=== PATIENT | male | born 1985 | race Caucasian/White ===

== ENCOUNTER 2020-04-24 07:55 | Outpatient (CLI) | payer BC, SELFPAY ==
[2020-04-24 08:32] LABS: Anion Gap 8 mmol/L (8-16); Blood Urea Nitrogen 14 mg/dL (9-20); Calcium 9.2 mg/dL (8.4-10.2); Carbon Dioxide 26 mmol/L (22-30); Chloride 101 mmol/L (98-107); Estimated Glomerular Filt Rate > 60; Glucose 119 mg/dL (75-110); Potassium 4.2 mmol/L (3.4-5.0); Sodium 135 mmol/L (137-145)
[2020-04-24 08:37] LABS: Hemoglobin A1C 6.8 % (<5.7)
[2020-04-24 08:57] LABS: Creatinine Urine 121.3 mg/dL
[2020-04-24 09:20] LABS: Microalbumin Urine Random < 6.0 mg/L (0-16.7)
[2020-04-24 09:21] LABS: MALB Creatinine Ratio < 4.9 mg/g (0-30)
== END 2020-04-24 07:56 | disposition home or self-care (01) ==
PROVIDERS: PCP Internal Medicine; Visit Provider Nurse Practitioner
DX: E11.9 Type 2 diabetes mellitus without complications (principal)
CPT/HCPCS: 36415; 80048; 82043; 83036

== ENCOUNTER → 2021-10-12 08:21 | Outpatient (CLI) | payer BC, SELFPAY ==
--- NOTE | ~2021-10-12 | MR_ITS ---
EXAMINATION: MR lumbar spine wo con EXAM DATE: 10/12/2021 09:13 INDICATION: Lumbar radiculopathy, lbp right sided sciatica x10yrs. TECHNIQUE: Multi-sequential, multiplanar MR images of the lumbar spine were obtained without contrast . Sagittal T1, T2, T2 fat saturation images. Axial T2 weighted images. Comparison is made to prior examination from 02/05/2019. FINDINGS: Level by level evaluation: T12-L1: Disc does not extend beyond the endplate margin. Facet arthropathy: Mild. Neural foraminal stenosis: No stenosis. Central canal stenosis: No stenosis. L1-L2: Disc does not extend beyond the endplate margin. Facet arthropathy: Mild. Neural foraminal stenosis: No stenosis. Central canal stenosis: No stenosis. L2-L3: Disc does not extend beyond the endplate margin. Facet arthropathy: Mild to moderate. Neural foraminal stenosis: No stenosis. Central canal stenosis: No stenosis. L3-L4: There is a moderate diffuse disc bulge asymmetric to the right Facet arthropathy: Moderate. Neural foraminal stenosis: Mild to moderate right, mild left. Central canal stenosis: Mild to moderate. L4-L5: There is a mild diffuse disc bulge. Facet arthropathy: Mild to moderate. Neural foraminal stenosis: No stenosis. Central canal stenosis: Mild. L5-S1: There is a minimal diffuse disc bulge. Facet arthropathy: Mild. Neural foraminal stenosis: No stenosis. Central canal stenosis: No stenosis. IMPRESSION: 1. L3-4 moderate disc bulge and mild to moderate right neural foraminal stenosis and causing some di splacement of the exiting right L3 nerve root. 2. No spondylosis other levels. Reviewed, dictated and finalized at location G. [employer] MECH[employer]IC IMPRESSION: 1. L3-4 moderate disc bulge and mild to moderate right neural foraminal stenos is and causing some displacement of the exiting right L3 nerve root. 2. No spondylosis other levels.
== END ==
PROVIDERS: PCP Internal Medicine; Visit Provider Nurse Practitioner Adult Health
DX: M54.16 Radiculopathy, lumbar region (principal); M48.061 Spinal stenosis, lumbar region without neurogenic claudication
CPT/HCPCS: 72148

== ENCOUNTER 2022-12-06 10:22 | Observation (INO) | payer BC, SELFPAY ==
[2022-12-06] VITALS (15 sets, daily range): BP systolic 115–137; BP diastolic 80–96; PULSE 73–95; RESP 16–18; TEMP 36.9–37.1; O2SAT 98–100
--- NOTE | ~2022-12-06 | CT_ITS ---
EXAMINATION: CTA chest PE abdomen pel DATE: 12/06/2022 12:24 INDICATION: Dyspnea. Nausea, vomiting, and diarrhea. Epigastric abdominal pain. TECHNIQUE: Computed tomography angiography (CTA) of the chest was performed with 100 mL Omnipaque-350 intravenous contrast timed to evaluate the pulmonary arteries. Coronal maximum intensity projection 3D-reconstructions were created by the technologist. Computed tomography (CT) of the abdomen and pelv is was performed with intravenous contrast. Automated exposure control and iterative reconstruction t echnique were employed. The dose-length product was 956.73 mGy-cm. COMPARISON: None. FINDINGS: CTA chest: There is no pneumonia, pleural effusion, or pneumothorax. Pneumomediastinum is noted. Ther e is no pulmonary embolus. The heart size is normal. No pericardial effusion. There is no pulmonary e mbolus. CT abdomen and pelvis: The liver, gallbladder, pancreas, adrenal glands, and kidneys are normal. Ther e are no dilated loops of bowel. The appendix is normal. There are no pathologically enlarged lymph n odes. There is no free intraperitoneal fluid. There are chronic bilateral L3 pars defects. There is m oderate lumbar spondylosis. IMPRESSION: 1. Pneumomediastinum. 2. No pulmonary embolus. Reviewed, dictated and finalized at location A.
--- NOTE | ~2022-12-06 | XR_ITS ---
EXAMINATION: XR chest 1V portable DATE: 12/06/2022 12:01 INDICATION: Cough. Chest pain. TECHNIQUE: A single frontal view of the chest was obtained on 2 radiographs. COMPARISON: None. FINDINGS: The chest demonstrates clear lungs without pneumonia, pleural effusion, or pneumothorax. Th e heart size is normal. IMPRESSION: 1. No acute cardiopulmonary disease. Reviewed, dictated and finalized at location A.
[2022-12-06 11:48] LABS: Basophils Percent Auto 0.8 % (0.2-1.2); Eosinophils Percent Auto 0.6 % (0-4.4); Hematocrit 48.8 % (42.0-52.0); Immature Granulocyte Absolute 0.08 K/mm3 (0.00-0.031); Immature Granulocyte Percent A 1.5 % (0-0.5); Lymphocytes Absolute Auto 0.93 K/mm3 (0.9-3.2); Lymphocytes Percent Auto 17.6 % (18.3-44.2); Mean Corpuscular HGB Conc 34.8 g/dl (32-36); Mean Corpuscular Hemoglobin 30.4 pg (26-34); Mean Corpuscular Volume 87.3 fl (80-100); Mean Platelet Volume 9.5 fl (7.4-10.4); Monocytes Percent Auto 19.1 % (2.6-8.5); Neutrophils Absolute Auto 3.2 K/mm3 (1.3-6.7); Neutrophils Percent Auto 60.4 % (45.5-73.1); Platelet Count Result 322 k/mm3 (150-375); Red Blood Count 5.59 M/mm3 (4.6-6.20); White Blood Count 5.3 K/mm3 (4.5-10.0)
[2022-12-06 11:52] LABS: Appearance Urine Clear (Clear); Bacteria Urine None Seen /hpf; Bilirubin Urine Negative (Negative); Blood Urine Negative (Negative); Color Urine Yellow (Yellow); Glucose Urine UA 3+ mg/dL (Negative); Ketones Urine 4+ mg/dL (Negative); Leukocyte Esterase Ur Negative LEU/UL (Negative); Nitrate Urine Negative (Negative); Protein Urine 2+ mg/dL (Negative); RBC Urine 0-2 /hpf (0-2); Specific Grav Ur 1.038 (1.001-1.035); Squamous Epithelial Cell Urine None seen /hpf (Few); Urobilinogen Urine 0.2 mg/dL (<2.0); WBC Urine 0-5 /hpf
[2022-12-06 11:53] LABS: Add Urine Microscopic? YES
[2022-12-06 12:00] LABS: Alanine Aminotransferase 21 U/L (6-50); Albumin Level 5.1 g/dL (3.5-5.1); Alkaline Phosphatase 77 U/L (38-126); Anion Gap 21 mmol/L (8-16); Aspartate Amino Transferase 28 U/L (17-59); Bilirubin,Total 0.7 mg/dL (0.2-1.3); Blood Urea Nitrogen 19 mg/dL (9-20); Calcium 8.7 mg/dL (8.4-10.2); Carbon Dioxide 18 mmol/L (22-30); Chloride 89 mmol/L (98-107); Estimated CRCL calculation 134 ml/min; Estimated Glomerular Filt Rate > 60; Glucose 335 mg/dL (65-110); Lipase 171 U/L (23-300); Sodium 128 mmol/L (137-145)
[2022-12-06 12:22] LABS: Influenza A QL RT-PCR Negative (Negative); Influenza B QL RT-PCR Negative (Negative); SARS-CoV-2 RNA PCR Positive
[2022-12-06 12:28] LABS: Magnesium 2.2 mg/dL (1.6-2.3)
[2022-12-06 12:29] LABS: Atypical Lymphocytes Present; Platelet Estimate Adequate (Adequate); Schistocytes None Seen (NORMAL)
[2022-12-06 12:31] LABS: Troponin I < 0.012 ng/mL (0.000-0.034)
[2022-12-06] MEDS: SODIUM CHLORIDE 0.9% IV 1,000 ML 999 ML IV CONT ×3 (12:32→14:41)
[2022-12-06] MEDS: FAMOTIDINE 20 MG/2 ML VIAL IV PUSH ×2 (12:32→21:04)
--- NOTE | 2022-12-06 12:43 | ED.ABDPAIN ---
HPI - Abdominal Pain General Chief Complaint: Abdominal Pain Stated Complaint: covid positive, V/D, epigatric pain Time Seen by Provider: 12/06/22 10:47 Source: RN notes reviewed History of Present Illness HPI narrative: Patient presents emergency department from home for nausea vomiting diarrhea. Patient states symptoms began initially 1 week ago with nausea and vomiting. He states he had numerous episodes of nausea and vomiting up through but has had no emesis since . He states that starting began to have diarrhea and has had numerous episodes of diarrhea since that time. States has been associated with abdominal pain that is diffuse and described as crampy in nature he also notes some chest pain and states that he has pain with swallowing. He states that he has had no fevers or chills states he has had a cough this been nonproductive states he took a COVID test at home this morning it was positive and came to the emergency department for further evaluation as he felt that he was dehydrated. States he is not taking Tylenol or ibuprofen Related Data Home Medications Medication Instructions Recorded Confirmed albuterol sulfate 90 mcg/actuation 2 puff inhalation Q4-6H PRN 09/15/19 12/06/22 aerosol inhaler (ProAir HFA) Shortness Of Breath Or Wheezing cholecalciferol (vitamin D3) 1,250 1,250 mcg PO WEEKLY 08/27/22 12/06/22 mcg (50,000 unit) capsule pioglitazone 30 mg tablet 30 mg PO HS 08/27/22 12/06/22 empagliflozin 25 mg tablet 25 mg PO DAILY 12/06/22 12/06/22 (Jardiance) ergocalciferol (vitamin D2) 1,000 1,000 unit PO DAILY 12/06/22 12/06/22 unit capsule loratadine 10 mg tablet (Claritin) 10 mg PO DAILY 12/06/22 12/06/22 metformin 1,000 mg tablet 1,000 mg PO BID 12/06/22 12/06/22 sertraline 50 mg tablet 50 mg PO HS 12/06/22 12/06/22 valacyclovir 1 gram tablet 2,000 mg PO Q12H PRN Cold Sores 12/06/22 12/06/22 Allergies Allergy/AdvReac Type Severity Reaction Status Date / Time aloe Allergy Mild Rash Verified 12/06/22 11:26 Review of Systems Review of Systems: Gen.: Denies fevers or chills ENT: Denies congestion Respiratory: Denies shortness of breath or cough CV: Reports chest pain GI: See HPI denies burning, urgency, frequency or hematuria Musculoskeletal: Denies back pain or muscle pain Neuro: Denies numbness, tingling, weakness or focal weakness Skin: Denies rash Except as documented, all other systems reviewed and negative FORMERLY [facility] Past Medical History Medical History (Updated 12/06/22 @ 15:57 by Adriana Perez PA-C) Allergies Asthma Chronic pain Elevated liver enzymes Gynecomastia Hyperkalemia Injection (erythema) Steroid injection 03/2019 Left radial fracture Transaminitis Type 2 diabetes mellitus Vitamin D deficiency Family History Family History (Updated 12/06/22 @ 15:35 by Adriana Perez PA-C) Sibling Family history of blood dyscrasia Mother Patient's mother is in good health Father Patient's father is in good health Hypertension Other Lupus Grandparent Heart disease Diabetes mellitus Social History Social History (Updated 12/06/22 @ 15:36 by Adriana Perez PA-C) Social History: Live house with 2 children and 1 dog. No smoking, drinking or drug use. Smoking status: Never smoker Second hand tobacco smoke exposure: No Alcohol intake: never Alcohol use details: Pt drinks rarely. Substance use: never Lack of Transportation: No Lack of Food: Never True Current Housing: I Have Housing Concerned About Future Housing: No Difficulty Paying Gas/Electric Bills: No Difficulty Paying for Meds: No Currently Unemployed: No Education: Bachelor's Degree Difficulty w/ Childcare or Family Care: No Spiritual care concerns: No Exam Narrative: APPEARANCE: No acute distress, nontoxic, resting in bed HEENT: Normocephalic, atraumatic, oral mucosa dry RESPIRATORY: No respiratory distress, clear to auscultation
--- NOTE | 2022-12-06 12:44 | ECG_ITS ---
Measurements Intervals [place] Rate: 80 P: 66 [place]: 138 QRS: 75 QRSD: 89 T: 45 QT: 359 QTc: 415 Interpretive Statements SINUS RHYTHM NO PREVIOUS ECG AVAILABLE FOR COMPARISON Electronically Signed On 12-06-2022 15:50:45 CDT by Elliot Adams M.D.
[2022-12-06 12:45] LABS: Alveolar/Arterial O2 Gradient 18.2 mmHg; Base Excess ABG -6.3 mEq/l (+/-2.0); Carboxyhemoglobin 0.4 % THb (0-2.0); Device ROOM AIR; Fractional Inspired Oxygen 21 %; HCO3 ABG 16.6 mEq/l (22.0-26.0); Methemoglobin ABG 0.4 %THb (0-1.5); Modified Allen's Test Pass; Oxygen Content ABG 20.6 %vol (16.0-22.0); Oxygen Saturation ABG 97.7 % (95.0-100.0); Oxyhemoglobin 96.7 % THb (90.0-100.0); PO2 ABG 99.2 mmHg (80.0-100.0); PO2 FiO2 Ratio Arterial Blood 4.72 %; Reduced Hemoglobin 2.5 %THb (0-5.0); Site Drawn RIGHT RADIAL; Total Hemoglobin 15.1 g/dL (12.0-18.0); pH ABG 7.406 (7.350-7.450)
[2022-12-06 13:16] LABS: Beta-Hydroxybutyrate/Acetoacetate 4.91 mmol/L (0.02-0.27)
[2022-12-06 13:58] LABS: Glucose Point of Care 270 mg/dl (65-105)
[2022-12-06 14:31] LABS: Anion Gap 13 mmol/L (8-16); Blood Urea Nitrogen 16 mg/dL (9-20); Calcium 7.6 mg/dL (8.4-10.2); Carbon Dioxide 19 mmol/L (22-30); Chloride 96 mmol/L (98-107); Estimated CRCL calculation 152 ml/min; Estimated Glomerular Filt Rate > 60; Glucose 251 mg/dL (65-110); Potassium 4.1 mmol/L (3.4-5.0); Sodium 128 mmol/L (137-145)
--- NOTE | 2022-12-06 15:20 | PM.IMHP ---
H&P: HPI History of Present Illness Date/Time: 12/06/22 15:20 Chief Complaint: COVID-19, dehydration Narrative: This is a 37-year-old male with a past medical history type 2 diabetes and asthma that presented to the ED on 12/06/2022 with chief complaint nausea, vomiting and diarrhea. Patient stated 1 week ago he began having nausea and vomiting. His and daughter both had the symptoms prior to him and they believe that they just have a stomach bug. Patient stated that he began to feel little bit better the next day but 2 days after he began having increased symptoms of nausea vomiting that resulted in him having the hiccups that lasted over 24 hours. Having hiccups cause him to have increased nausea vomiting and sternal chest pain. He developed diarrhea 2 days ago and with this he is having frequency and urgency. Diarrhea happens every 15 minutes to 1 hour and is large in volume. He has also had body aches and muscle weakness but he attributes this to being dehydrated. Patient had taken a COVID test at home where he found out he was positive for COVID and this is when he decided to come into the ER. ER labs revealed sodium of 128, an anion gap gap of 21, glucose of 335, Beta-Hydroxybutyrate/Acetoacetate 4.91, patient did have 4+ ketones in the urine. There was concern for diabetic ketoacidosis. Patient was given 1 L of fluids upon arrival to the ER. ER had discussion with ICU physician and he recommended that the patient receive additional 2 L of IV fluids and repeat BMP. Repeat BMP showed improvement of patient's labs with a normal anion gap and lower glucose level. Patient is likely experiencing dehydration rather than DKA. Since patient had chest pain troponin were ran that were negative and he also had a CT chest which showed a small pneumomediastinum which is likely secondary to profuse vomiting and hiccups. patient received a GI cocktail which improved his symptoms tremendously. Patient receiving IV hydration, Pepcid and p.r.n. Zofran. Patient being admitted observation with diagnosis of dehydration. Review of Systems Review of Systems: All systems reviewed & are unremarkable except as noted in HPI and below PMFSH Past Medical History Medical History (Updated 12/06/22 @ 15:57 by Adriana Perez PA-C) Allergies Asthma Chronic pain Elevated liver enzymes Gynecomastia Hyperkalemia Injection (erythema) Steroid injection 03/2019 Left radial fracture Transaminitis Type 2 diabetes mellitus Vitamin D deficiency Family History Family History (Updated 12/06/22 @ 15:35 by Adriana Perez PA-C) Sibling Family history of blood dyscrasia Mother Patient's mother is in good health Father Patient's father is in good health Hypertension Other Lupus Grandparent Heart disease Diabetes mellitus Social History Social History (Updated 12/06/22 @ 15:36 by Adriana Perez PA-C) Social History: Live house with 2 children and 1 dog. No smoking, drinking or drug use. Smoking status: Never smoker Alcohol intake: never Alcohol use details: Pt drinks rarely. Meds Home Medications and Allergies Home Medications Medication Instructions Recorded Confirmed Type albuterol sulfate 90 mcg/actuation 2 puff inhalation Q4-6H PRN 09/15/19 08/27/22 History aerosol inhaler (ProAir HFA) Shortness Of Breath Or Wheezing blood sugar diagnostic (Blood #50 ea 01/29/22 08/27/22 Rx Glucose Test strips) blood-glucose meter (Blood Glucose #1 ea 01/29/22 08/27/22 Rx Monitoring kit) dulaglutide 3 mg/0.5 mL 3 mg (0.5 mL) subcut WEEKLY #2 mL 01/29/22 08/27/22 Rx subcutaneous pen injector (Trulicity) lancets 32 gauge #100 ea 01/29/22 08/27/22 Rx sumatriptan succinate 50 mg tablet See Rx Instructions PO .COMPLEX #9 05/01/22 08/27/22 Rx (Imitrex) tabs cholecalciferol (vitamin D3) 1,250 1,250 mcg PO WEEKLY 08/27/22 08/27/22 History mcg (50,000 unit) capsule pioglitazone 30 mg tablet 30 mg
[2022-12-06 16:42] LABS: Anion Gap 13 mmol/L (8-16); Blood Urea Nitrogen 14 mg/dL (9-20); Calcium 8.2 mg/dL (8.4-10.2); Carbon Dioxide 19 mmol/L (22-30); Chloride 100 mmol/L (98-107); Estimated CRCL calculation 175 ml/min; Estimated Glomerular Filt Rate > 60; Glucose 209 mg/dL (65-110); Sodium 132 mmol/L (137-145)
[2022-12-06 16:46] LABS: Hemoglobin A1C 9.3 % (<5.7)
[2022-12-06] MEDS: SODIUM CHLORIDE 0.9% IV 1,000 ML 125 ML IV CONT ×2 (17:06→21:05)
[2022-12-06] MEDS: INSULIN ASPART (*BKC) 100 UNITS/ML SUB-Q (17:06)
[2022-12-06 18:22] LABS: Glucose Point of Care 209 mg/dl (65-105)
[2022-12-06] MEDS: INSULIN GLARGINE (*BKC) 100 UNITS/ML 9 UNITS SUB-Q (21:04)
[2022-12-06 21:24] LABS: Glucose Point of Care 183 mg/dl (65-105)
[2022-12-07 05:22] VITALS: BP 114/72; PULSE 70; RESP 14; TEMP 36.2; O2SAT 98
[2022-12-07 06:24] LABS: Basophils Percent Auto 0.9 % (0.2-1.2); Eosinophils Absolute Auto 0.1 K/mm3 (0-0.3); Eosinophils Percent Auto 1.8 % (0-4.4); Hematocrit 38.4 % (42.0-52.0); Hemoglobin 12.9 g/dL (14.0-18.0); Immature Granulocyte Absolute 0.06 K/mm3 (0.00-0.031); Immature Granulocyte Percent A 1.4 % (0-0.5); Lymphocytes Percent Auto 29.3 % (18.3-44.2); Mean Corpuscular HGB Conc 33.6 g/dl (32-36); Mean Corpuscular Hemoglobin 29.6 pg (26-34); Mean Corpuscular Volume 88.1 fl (80-100); Mean Platelet Volume 9.1 fl (7.4-10.4); Monocytes Absolute Auto 0.7 K/mm3 (0.1-0.6); Monocytes Percent Auto 16.5 % (2.6-8.5); Neutrophils Absolute Auto 2.2 K/mm3 (1.3-6.7); Neutrophils Percent Auto 50.1 % (45.5-73.1); Platelet Count Result 226 k/mm3 (150-375); Red Blood Count 4.36 M/mm3 (4.6-6.20); White Blood Count 4.4 K/mm3 (4.5-10.0)
[2022-12-07 06:39] LABS: Alanine Aminotransferase 16 U/L (6-50); Albumin Level 3.5 g/dL (3.5-5.1); Alkaline Phosphatase 45 U/L (38-126); Anion Gap 8 mmol/L (8-16); Aspartate Amino Transferase 24 U/L (17-59); Bilirubin,Total 0.5 mg/dL (0.2-1.3); Blood Urea Nitrogen 9 mg/dL (9-20); Calcium 8.2 mg/dL (8.4-10.2); Carbon Dioxide 26 mmol/L (22-30); Chloride 101 mmol/L (98-107); Estimated CRCL calculation 175 ml/min; Estimated Glomerular Filt Rate > 60; Glucose 143 mg/dL (65-110); Potassium 3.6 mmol/L (3.4-5.0); Sodium 135 mmol/L (137-145)
[2022-12-07 06:59] LABS: Atypical Lymphocytes Present; Platelet Estimate Adequate (Adequate); Schistocytes None Seen (NORMAL)
[2022-12-07 07:56] LABS: Glucose Point of Care 123 mg/dl (65-105)
[2022-12-07] MEDS: guaiFENesin 12 HR 600 MG TABCR PO (09:58)
[2022-12-07] MEDS: FAMOTIDINE 20 MG/2 ML VIAL IV PUSH ×2 (09:58→21:52)
[2022-12-07] MEDS: SODIUM CHLORIDE 0.9% IV 1,000 ML 125 ML IV CONT (09:58)
[2022-12-07] MEDS: metFORMIN HCL 500 MG TABLET 1000 MG PO (10:30)
[2022-12-07] MEDS: LORATADINE 10 MG TABLET PO (10:31)
[2022-12-07] MEDS: ACETAMINOPHEN 325 MG TABLET 650 MG PO (11:25)
[2022-12-07 11:35] LABS: Glucose Point of Care 163 mg/dl (65-105)
[2022-12-07 14:00] VITALS: BP 107/75; PULSE 88; RESP 18; TEMP 37.4; O2SAT 97
[2022-12-07 14:29] LABS: Glucose Point of Care 200 mg/dl (65-105)
--- NOTE | 2022-12-07 15:16 | PM.IMPN ---
Progress Note: A&P Assessment and Plan (1) Dehydration: Code(s): E86.0 - Dehydration Status: Acute Assessment and Plan: Patient has had nausea vomiting for 1 week and diarrhea for 2 days. Supporting labs with concentrated urine and sodium of 128. Labs have improved with IV fluids. Continue to monitor BMP. Continue IV fluids. (2) Nausea & vomiting: Code(s): R11.2 - Nausea with vomiting, unspecified Status: Acute Assessment and Plan: Patient with nausea vomiting for 1 week. Patient receiving IV Pepcid q.12 hours P.r.n. Zofran IV hydration COVID-19 positive which could be cause nausea vomiting N/V improved in ER. Can attempt clear liquid diet. (3) Pneumomediastinum: Code(s): J98.2 - Interstitial emphysema Status: Acute Assessment and Plan: CTA chest abdomen pelvis CTA her revealing a small pneumomediastinum and negative for PE. Pneumomediastinum likely from patient's retching and pickups. Will continue to monitor this Consider surgical consultation. (4) COVID-19: Code(s): U07.1 - COVID-19 Status: Acute Assessment and Plan: Patient positive for COVID-19. Place in COVID19 isolation precautions. Patient not requiring increased oxygen demand. Patient is not a candidate for remdesivir or dexamethasone. (5) Type 2 diabetes mellitus: Qualifiers: Diabetes mellitus complication status: without complication Diabetes mellitus [facility] insulin use: without adjunct faculty for medical terminology use Qualified Code(s): E11.9 - Type 2 diabetes mellitus without complications Code(s): E11.9 - Type 2 diabetes mellitus without complications Status: Acute Assessment and Plan: Patient is a non insulin-dependent diabetic. Upon arrival to the ED patient's blood sugars for and the 300s. After receiving IV fluids they improved. Initiate sliding scale, hypo glycemic protocol Subjective Date/time seen: 12/07/22 15:16 Interval history: Patient did feel better this morning. When I was in the room talking with the patient he had just gotten out of the shower and at that time he began shaking in stating that he was really cold. Patient got into bed and he was cold to the touch and his teeth were chattering. Did a blood sugar check on him and he was at 162 his vital signs were also stable. Sitting with the patient and using heating blankets he warmed up pretty quickly and his symptoms resolved. Patient had not been having much activity over the past several days and got up to take a shower and I believe that he over exerted himself at that time causing some of his symptoms. He has recovered from this and had a low-fiber diet at lunch and tolerated this well. If patient continues to do well he should be able to be discharged tomorrow. Review of Systems Review of Systems: All systems reviewed & are unremarkable except as noted in HPI and below Exam Narrative: GENERAL: Comfortable, no acute distress, thin HENMT: moist mucous membranes EYES: EOM intact b/l NECK: no lymphadenopathy RESPIRATORY: clear to auscultation CARDIO: RRR GI: soft, nontender, bowel sounds present SKIN: no rashes EXTREMITIES: no edema, redness or tenderness Objective Data Vital Signs Vital Signs: Vital Signs - 24 hr 12/06/22 15:52 12/06/22 21:34 12/06/22 20:00 Temperature 98.6 F Pulse Rate 75 77 Respiratory Rate 16 16 Blood Pressure 120/85 123/83 Pulse Oximetry 99 100 Oxygen Delivery Room Air 12/07/22 05:22 12/07/22 08:00 Temperature 97.2 F L Pulse Rate 70 Respiratory Rate 14 Blood Pressure 114/72 Pulse Oximetry 98 Oxygen Delivery Room Air Intake/Output Intake/Output: Intake & Output 12/04/22 12/05/22 12/06/22 12/07/22 23:59 23:59 23:59 23:59 Intake Total 4340 2290 Balance 4340 2290 Meds/Results Medications: Active Medications Generic Name Dose Route St
[2022-12-07 15:56] LABS: IFOB Positive Control Positive; Immunochemical Fecal Occult Bl Negative (N)
[2022-12-07 17:54] LABS: Glucose Point of Care 164 mg/dl (65-105)
[2022-12-07 19:37] LABS: Toxigenic C. Diff POSITIVE (NEGATIVE)
[2022-12-07 21:00] LABS: Glucose Point of Care 166 mg/dl (65-105)
[2022-12-07 21:19] LABS: Appearance Urine Clear (Clear); Bacteria Urine None Seen /hpf; Bilirubin Urine Negative (Negative); Blood Urine Trace (Negative); Color Urine Yellow (Yellow); Glucose Urine UA 3+ mg/dL (Negative); Ketones Urine 1+ mg/dL (Negative); Leukocyte Esterase Ur Negative LEU/UL (NEGATIVE); Need Manual Microscopic Reviewed; Nitrate Urine Negative (Negative); Non Pathogenic Casts 0-2; Protein Urine Negative (Negative); RBC Urine 0-2 /hpf (0-2); Specific Grav Ur 1.006 (1.001-1.035); Squamous Epithelial Cell Urine None seen /hpf (Few); Urobilinogen Urine 0.2 mg/dL (<2.0); WBC Urine 0-5 /hpf (0-3)
[2022-12-07 21:30] LABS: Add Urine Microscopic? YES
[2022-12-07] MEDS: guaiFENesin 600 MG/DEXTROMETHORPHAN 30 MG SR TAB 12 HR 1 TAB PO (21:50)
[2022-12-07] MEDS: MELATONIN 3 MG TABLET PO (21:50)
[2022-12-07] MEDS: SERTRALINE HCL 50 MG TABLET PO (21:51)
[2022-12-07] MEDS: diphenhydrAMINE HCl CAP 25 MG CAPSULE PO (21:51)
[2022-12-07] MEDS: INSULIN GLARGINE (*BKC) 100 UNITS/ML 9 UNITS SUB-Q (21:51)
[2022-12-07 22:00] VITALS: BP 131/84; PULSE 80; RESP 14; TEMP 36.8; O2SAT 100
[2022-12-07] MEDS: VANCOMYCIN ORAL 500 MG/10 ML SYRUP PO (23:38)
[2022-12-08] MEDS: VANCOMYCIN ORAL 500 MG/10 ML SYRUP PO ×2 (05:28→11:41)
[2022-12-08 06:00] VITALS: BP 118/81; PULSE 58; RESP 13; TEMP 36.2; O2SAT 100
[2022-12-08 07:08] LABS: Hematocrit 36.3 % (42.0-52.0); Hemoglobin 12.2 g/dL (14.0-18.0); Mean Corpuscular HGB Conc 33.6 g/dl (32-36); Mean Corpuscular Hemoglobin 29.8 pg (26-34); Mean Corpuscular Volume 88.5 fl (80-100); Mean Platelet Volume 9.7 fl (7.4-10.4); Platelet Count Result 217 k/mm3 (150-375); Red Cell Distribution Width 12.9 % (11.5-14.5); White Blood Count 5.9 K/mm3 (4.5-10.0)
[2022-12-08 07:31] LABS: Alanine Aminotransferase 17 U/L (6-50); Albumin Level 3.2 g/dL (3.5-5.1); Alkaline Phosphatase 48 U/L (38-126); Anion Gap 6 mmol/L (8-16); Aspartate Amino Transferase 24 U/L (17-59); Bilirubin,Total 0.5 mg/dL (0.2-1.3); Blood Urea Nitrogen 9 mg/dL (9-20); Calcium 8.1 mg/dL (8.4-10.2); Carbon Dioxide 29 mmol/L (22-30); Chloride 98 mmol/L (98-107); Estimated CRCL calculation 206 ml/min; Estimated Glomerular Filt Rate > 60; Glucose 127 mg/dL (65-110); Magnesium 1.9 mg/dL (1.6-2.3); Potassium 3.3 mmol/L (3.4-5.0); Sodium 133 mmol/L (137-145)
[2022-12-08 08:00] LABS: Glucose Point of Care 103 mg/dl (65-105)
[2022-12-08] MEDS: LORATADINE 10 MG TABLET PO (08:59)
[2022-12-08] MEDS: metFORMIN HCL 500 MG TABLET 1000 MG PO (08:59)
[2022-12-08] MEDS: FAMOTIDINE 20 MG/2 ML VIAL IV PUSH (08:59)
[2022-12-08] MEDS: guaiFENesin 600 MG/DEXTROMETHORPHAN 30 MG SR TAB 12 HR 1 TAB PO (08:59)
[2022-12-08] MEDS: POTASSIUM CHLORIDE 20 MEQ PACKET (FOR LIQUID) 40 MEQ PO (09:01)
[2022-12-08 11:18] LABS: Glucose Point of Care 184 mg/dl (65-105)
--- NOTE | 2022-12-08 13:16 | PM.DS ---
DS: Admitting Diagnosis Discharge Date 12/08/22 Admitting Diagnosis dehydration DS: Discharge Diagnosis Discharge Diagnosis (1) Dehydration: Code(s): E86.0 - Dehydration Status: Acute Assessment and Plan: Patient has had nausea vomiting for 1 week and diarrhea for 2 days. Supporting labs with concentrated urine and sodium of 128. Labs have improved with IV fluids. Monitor BMP. IV fluids. (2) Nausea & vomiting: Code(s): R11.2 - Nausea with vomiting, unspecified Status: Acute Assessment and Plan: Patient with nausea vomiting for 1 week. Patient receiving IV Pepcid q.12 hours P.r.n. Zofran IV hydration COVID-19 positive which could be cause nausea vomiting N/V improved in ER. Can attempt clear liquid diet. (3) Pneumomediastinum: Code(s): J98.2 - Interstitial emphysema Status: Acute Assessment and Plan: CTA chest abdomen pelvis CTA her revealing a small pneumomediastinum and negative for PE. Pneumomediastinum likely from patient's retching and pickups. Will continue to monitor this (4) COVID-19: Code(s): U07.1 - COVID-19 Status: Acute Assessment and Plan: Patient positive for COVID-19. Place in COVID19 isolation precautions. Patient not requiring increased oxygen demand. Patient is not a candidate for remdesivir or dexamethasone. (5) Type 2 diabetes mellitus: Qualifiers: Diabetes mellitus complication status: without complication Diabetes mellitus [facility] insulin use: without agency owner use Qualified Code(s): E11.9 - Type 2 diabetes mellitus without complications Code(s): E11.9 - Type 2 diabetes mellitus without complications Status: Acute Assessment and Plan: Patient is a non insulin-dependent diabetic. Upon arrival to the ED patient's blood sugars for and the 300s. After receiving IV fluids they improved. Initiate sliding scale, hypo glycemic protocol (6) Diarrhea: Code(s): R19.7 - Diarrhea, unspecified Status: Acute Assessment and Plan: Patient with Diarrhea on presentation. stool studies ordered. Patient positive for C. diff. Start PO vancomycin 125mg qid for 10 days. DS: Summary Hospital Course Reason for hospitalization: dehydration Hospital Course: This is a 37-year-old male with a past medical history type 2 diabetes and asthma that presented to the ED on 12/06/2022 with chief complaint nausea, vomiting and diarrhea.? Patient stated 1 week ago he began having nausea and vomiting.? His and daughter both had the symptoms prior to him and they believe that they just have a stomach bug. Patient stated that he began to feel little bit better the next day but 2 days after he began having increased symptoms of nausea vomiting that resulted in him having the hiccups that lasted over 24 hours.? Having hiccups cause him to have increased nausea vomiting and sternal chest pain.? He developed diarrhea 2 days ago and with this he is having frequency and urgency.? Diarrhea happens every 15 minutes to 1 hour and is large in volume.? He has also had body aches and muscle weakness but he attributes this to being dehydrated.? Patient had? taken a COVID test at home where he found out he was positive for COVID and this is when he decided to come into the ER.? ER labs revealed sodium of 128, an anion gap gap of 21,? glucose of 335, Beta-Hydroxybutyrate/Acetoacetate 4.91,? patient did have 4+ ketones in the urine.? There was concern for diabetic ketoacidosis. ? Patient was given 1 L of fluids upon arrival to the ER. ER had discussion with ICU physician? and he recommended that the patient receive additional 2 L of IV fluids and repeat BMP.? Repeat BMP showed improvement of patient's labs with a normal anion gap and lower glucose level. ? Patient likely experienced dehydration rather than DKA.? Since patient had chest pain tropo
== END 2022-12-08 14:10 | disposition home or self-care (01) ==
LOC: ANHED 14:12 → ANH3MEDSUR 12-08 09:54
PROVIDERS: Internal Medicine Critical Care Medicine; Physician Assistant; Admitting Provider Family Medicine; Emergency Provider Emergency Medicine; PCP Internal Medicine; Visit Provider Student in an Organized Health Care Education/Training Program
DX: E86.0 Dehydration (principal); R11.2 Nausea with vomiting, unspecified; J98.2 Interstitial emphysema; U07.1 COVID-19; E11.65 Type 2 diabetes mellitus with hyperglycemia; A04.72 Enterocolitis due to Clostridium difficile, not specified as recurrent; J45.909 Unspecified asthma, uncomplicated; E87.1 Hypo-osmolality and hyponatremia; R07.9 Chest pain, unspecified; R35.0 Frequency of micturition; R06.02 Shortness of breath; R39.15 Urgency of urination; E55.9 Vitamin D deficiency, unspecified; Z79.51 Long term (current) use of inhaled steroids; Z79.84 Long term (current) use of oral hypoglycemic drugs; Z79.85 Long-term (current) use of injectable non-insulin antidiabetic drugs; Z79.899 Other long term (current) drug therapy; Z83.3 Family history of diabetes mellitus
CPT/HCPCS: 36415; 36600; 71045; 71275; 74177; 80048; 80053; 81001; 82010; 82274; 82375; 82805; 82948; 83036; 83050; 83690; 83735; 84100; 84484; 85025; 85027; 87045; 87269; 87272; 87427; 87493; 87636; 93005; 96361; 96365; 96375; 96376; 99285; A9270; G0378; J0131; J1815; J7030; Q9967

== ENCOUNTER → 2023-09-17 12:51 | Outpatient (CLI) | payer OTHER, SELFPAY ==
--- NOTE | ~2023-09-17 | MR_ITS ---
EXAMINATION: MR sacroiliac jpaula wo con DATE: 09/17/2023 13:34 INDICATION: Back pain due to inflammatory process. TECHNIQUE: Magnetic resonance imaging (MRI) of the sacroiliac joints was performed without intravenou s contrast. COMPARISON: CT 12/06/2022 FINDINGS: Bone alignment is normal. No fracture. There is mild lower lumbar spondylosis. There is mild osteoart hritis of the sacroiliac joints. IMPRESSION: 1. Mild osteoarthritis of the sacroiliac joints. No evidence of inflammatory arthropathy. Reviewed, dictated and finalized at location A. ECTOR [employer] DREDGING IMPRESSION: 1. Mild osteoarthritis of the sacroiliac joints. No evidence of inflammatory ar thropathy.
--- NOTE | ~2023-09-17 | XR_ITS ---
EXAMINATION: XR lumbar spine min 4V DATE: 09/17/2023 13:41 INDICATION: Back pain due to inflammatory process TECHNIQUE: Anteroposterior and lateral views of the lumbar spine, and cone-down lateral view of the l umbosacral junction were obtained. COMPARISON: Lumbar spine MR dated 10/12/2021 FINDINGS: Alignment is normal. Minimal likely physiologic anterior wedging at T12 and L1. Moderate disc height loss at L3-L4. Mild disc height loss at L5-S1. Multilevel lumbar facet osteoarthritis, mild to modera te on the right at L5-S1 and otherwise mild. No pars interarticularis defects. Mild to moderate bilat eral sacroiliac osteoarthritis. No erosions to suggest inflammatory sacroiliitis. IMPRESSION: 1. Mild to moderate lumbar spondylosis. 2. 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 Reviewed, dictated and finalized at location A. DING MACHINE OPERATOR PORTABLE
== END ==
DX: M54.89 Other dorsalgia (principal); M43.06 Spondylolysis, lumbar region; M85.88 Other specified disorders of bone density and structure, other site
CPT/HCPCS: 72110; 72197

== ENCOUNTER 2023-11-02 08:46 | Outpatient (CLI) | payer OTHER, SELFPAY ==
[2023-11-09 15:43] VITALS: BMI 25.0
--- NOTE | 2023-11-09 15:43 | WPDHOMESLEEP ---
Sleep Study - Home Unattended Date of Study: 11/02/23 Ordering Provider: MANSOOR Sawyer-C Interpreting Provider: Melissa Nam, DO Home Sleep Study Type: Watch PAT Height: 1.93 m Weight: 93.44 kg Body Mass Index: 25.0 Neck Circumference (inches): 14.75 [place]: 0 Reason for Sleep Study Difficulty staying asleep Sleep History The patient is a 38 year asthma, type 2 diabetes, depression, anxiety, ADHD, migraines and arthritis that a sleep study ordered by his primary care for evaluation of sleep disturbances. The patient denies awakening from sleep short of breath. He denies awakening at night with heartburn, belching or cough. He occasionally snores but it is rarely loud enough that others complain. He occasionally has trouble sleeping when he has a cold. He denies waking up gasping for air throughout the night. He denies having breathing problems at night observed by himself or others. He frequently sweats excessively at night. He denies having heart palpitations or irregular heartbeats during the night. He denies falling asleep during the day and while driving. He denies sleep paralysis and cataplexy. He denies having trouble at school or work due to sleepiness. He rarely experiences vivid dreamlike scenes upon awakening or falling asleep. He denies feeling afraid of going to sleep. He rarely has nightmares. He occasionally remembers his dreams. He constantly has thoughts racing through his mind. He occasionally feels sad, depressed and anxious. He frequently has muscular tension. He occasionally notices parts of his body jerk. He denies kicking during the night. He denies having crawling and aching feelings in his legs and occasionally has leg pain night. He occasionally grinds his teeth during sleep but never awakens morning jaw pain. He is constantly bothered by pain during the day and frequently awakened by pain during the night. He constantly wakes up feeling stiff in the morning. He occasionally wakes up with sore or achy muscles. He constantly wakes up with pain neck, spine and other joints. He goes to bed at 10:30 p.m. on weekdays and at 11:30 p.m. on the weekends. It takes him less than 30 minutes to fall asleep. He wakes up 2-4 times throughout the night to urinate but will take 2-3 hours to fall back asleep. He wakes up at 6:00 a.m. on weekdays and at 6:30 a.m. on the weekends. He typically gets 4-5 hours of sleep per night. He will stay in bed for 20 minutes after waking up in the morning. He currently lives with his and 2 children. He denies consuming any caffeinated beverages within 2 hours of bedtime. He denies engaging in physical exercise before bedtime. He will read and watch television before falling asleep. He denies taking naps in the afternoon or the evening. He consumes 400 mg of caffeine per day. He denies tobacco, alcohol and recreational drug use. [facility] Past Medical History Medical History Acute frontal sinusitis Acute hyperkalemia Allergies Asthenia Asthma C. difficile diarrhea Chronic pain COVID-19 Degenerative disc disease Dehydration Diarrhea Dizziness Elevated liver enzymes Gynecomastia Herpes labialis Hyperkalemia Influenza A Injection (erythema) Steroid injection 03/2019 Left knee pain Left radial fracture Nausea & vomiting Orthostasis Plantar wart of left foot Pneumomediastinum Transaminitis Type 2 diabetes mellitus Viral illness Viral pharyngitis Vitamin D deficiency Family History Family History Sibling Family history of blood dyscrasia Mother Patient's mother is in good health Father Patient's father is in good health Hypertension Other Lupus Grandparent Heart disease Diabetes mellitus Social History Social History Social History: Live house with 2
== END 2023-11-03 07:30 | disposition home or self-care (01) ==
LOC: ANHCSM 08:48
PROVIDERS: PCP Internal Medicine; Visit Provider Clinical Nurse Specialist
DX: G47.10 Hypersomnia, unspecified (principal); G47.9 Sleep disorder, unspecified
CPT/HCPCS: 95800

== ENCOUNTER 2023-12-14 11:43 | Outpatient (CLI) | payer OTHER, SELFPAY ==
--- NOTE | 2023-12-22 15:16 | WPDSLEEPSTUD ---
Sleep Study Date of Study: 12/14/23 Ordering Provider: Lili Weber NP Interpreting Physician: Melissa Nam DO Sleep Study Type: Polysomnogram Height: 1.93 m Weight: 92.986 kg Body Mass Index: 24.9 Neck Circumference (inches): 16 [place]: 0 Reason for Sleep Study Difficulty staying asleep. The patient had a WatchPAT home sleep test on 11/02/2023 that showed an overall AHI of 2.1 with desaturation down to 88%. Sleep History The patient is a 38 year asthma, type 2 diabetes, depression, anxiety, ADHD, migraines and arthritis that a sleep study ordered by his primary care for evaluation of sleep disturbances. The patient denies awakening from sleep short of breath. He denies awakening at night with heartburn, belching or cough. He occasionally snores but it is rarely loud enough that others complain. He occasionally has trouble sleeping when he has a cold. He denies waking up gasping for air throughout the night. He denies having breathing problems at night observed by himself or others. He frequently sweats excessively at night. He denies having heart palpitations or irregular heartbeats during the night. He denies falling asleep during the day and while driving. He denies sleep paralysis and cataplexy. He denies having trouble at school or work due to sleepiness. He rarely experiences vivid dreamlike scenes upon awakening or falling asleep. He denies feeling afraid of going to sleep. He rarely has nightmares. He occasionally remembers his dreams. He constantly has thoughts racing through his mind. He occasionally feels sad, depressed and anxious. He frequently has muscular tension. He occasionally notices parts of his body jerk. He denies kicking during the night. He denies having crawling and aching feelings in his legs and occasionally has leg pain night. He occasionally grinds his teeth during sleep but never awakens morning jaw pain. He is constantly bothered by pain during the day and frequently awakened by pain during the night. He constantly wakes up feeling stiff in the morning. He occasionally wakes up with sore or achy muscles. He constantly wakes up with pain neck, spine and other joints. He goes to bed at 10:30 p.m. on weekdays and at 11:30 p.m. on the weekends. It takes him less than 30 minutes to fall asleep. He wakes up 2-4 times throughout the night to urinate but will take 2-3 hours to fall back asleep. He wakes up at 6:00 a.m. on weekdays and at 6:30 a.m. on the weekends. He typically gets 4-5 hours of sleep per night. He will stay in bed for 20 minutes after waking up in the morning. He currently lives with his and 2 children. He denies consuming any caffeinated beverages within 2 hours of bedtime. He denies engaging in physical exercise before bedtime. He will read and watch television before falling asleep. He denies taking naps in the afternoon or the evening. He consumes 400 mg of caffeine per day. He denies tobacco, alcohol and recreational drug use. [facility] Past Medical History Medical History Acute frontal sinusitis Acute hyperkalemia Allergies Asthenia Asthma C. difficile diarrhea Chronic pain COVID-19 Degenerative disc disease Dehydration Diarrhea Dizziness Elevated liver enzymes Gynecomastia Herpes labialis Hyperkalemia Influenza A Injection (erythema) Steroid injection 03/2019 Left knee pain Left radial fracture Nausea & vomiting Orthostasis Plantar wart of left foot Pneumomediastinum Transaminitis Type 2 diabetes mellitus Viral illness Viral pharyngitis Vitamin D deficiency Family History Family History Sibling Family history of blood dyscrasia Mother Patient's mother is in good health Father Patient's father is in good health Hypertension Other Lupus Grandparent Heart disease Diabetes mellitus Social History Social Hi
[2023-12-22 15:18] VITALS: BMI 24.9
== END 2023-12-15 06:53 | disposition home or self-care (01) ==
LOC: ANHCSM 11:43
PROVIDERS: PCP Internal Medicine; Visit Provider Nurse Practitioner
DX: G47.10 Hypersomnia, unspecified (principal); G47.9 Sleep disorder, unspecified; G47.61 Periodic limb movement disorder; I10 Essential (primary) hypertension
CPT/HCPCS: 95810

== ENCOUNTER 2023-12-29 07:34 | Day surgery (SDC) | payer OTHER, SELFPAY ==
[2023-12-15 08:13] VITALS: BMI 25.0
--- NOTE | 2023-12-28 14:04 | PM.HPGS ---
History of Present Illness History of Present Illness Consent: Risks, benefits, and alternatives have been discussed and questions answered. Patient agrees to proceed with procedure. Chief complaint: Melena Narrative: Cain Blount is a 38 year old male Referred for colonoscopy due to the presence of blood in his stools. Review of Systems Review of Systems: All systems reviewed & are unremarkable except as noted in HPI and below PMFSH Past Medical History Medical History Acute frontal sinusitis Acute hyperkalemia Allergies Asthenia Asthma C. difficile diarrhea Chronic pain COVID-19 Degenerative disc disease Dehydration Diabetes type 2, controlled Diarrhea Dizziness Elevated liver enzymes Gynecomastia Herpes labialis Hyperkalemia Influenza A Injection (erythema) Steroid injection 03/2019 Left knee pain Left radial fracture Nausea & vomiting Orthostasis Plantar wart of left foot Pneumomediastinum Transaminitis Type 2 diabetes mellitus Viral illness Viral pharyngitis Vitamin D deficiency Family History Family History Sibling Family history of blood dyscrasia Mother Patient's mother is in good health Father Patient's father is in good health Hypertension Other Lupus Grandparent Heart disease Diabetes mellitus Social History Social History Social History: Live house with 2 children and 1 dog. No smoking, drinking or drug use. caffeine Smoking status: Never smoker Second hand tobacco smoke exposure: No Alcohol intake: never Alcohol use details: Pt drinks rarely. Substance use: never Substance use type: does not use Do You Feel Safe in your Home?: Yes Lack of Transportation: No Lack of Food: Never True Current Housing: I Have Housing Concerned About Future Housing: No Difficulty Paying Gas/Electric Bills: No Difficulty Paying for Meds: No Currently Unemployed: No Education: Bachelor's Degree Difficulty w/ Childcare or Family Care: No Living arrangements: with family Spiritual care concerns: No Meds Home Medications and Allergies Home Medications Medication Instructions Recorded Confirmed Type albuterol sulfate 90 mcg/actuation 2 puff inhalation Q4-6H PRN 09/15/19 12/29/23 History aerosol inhaler (ProAir HFA) Shortness Of Breath Or Wheezing blood sugar diagnostic (Blood #50 ea 01/29/22 12/16/23 Rx Glucose Test strips) blood-glucose meter (Blood Glucose #1 ea 01/29/22 12/16/23 Rx Monitoring kit) lancets 32 gauge #100 ea 01/29/22 12/16/23 Rx cholecalciferol (vitamin D3) 1,250 1,250 mcg PO WEEKLY 08/27/22 12/29/23 History mcg (50,000 unit) capsule pioglitazone 30 mg tablet 30 mg PO HS 08/27/22 12/29/23 History empagliflozin 25 mg tablet 25 mg PO DAILY 12/06/22 12/29/23 History (Jardiance) ergocalciferol (vitamin D2) 1,000 1,000 unit PO DAILY 12/06/22 12/29/23 History unit capsule loratadine 10 mg tablet (Claritin) 10 mg PO DAILY 12/06/22 12/29/23 History metformin 1,000 mg tablet 1,000 mg PO BID 12/06/22 12/29/23 History ubrogepant 50 mg tablet (Ubrelvy) 50 mg PO ONCE #10 tabs 12/22/22 12/29/23 Rx dulaglutide 4.5 mg/0.5 mL 4.5 mg subcut WEEKLY 07/24/23 12/29/23 History subcutaneous pen injector (Trulicity) insulin lispro 100 unit/mL 3 unit subcut QHS 07/24/23 12/29/23 History subcutaneous pen (Humalog KwikPen (U-100) Insulin) duloxetine 60 mg capsule,delayed 60 mg PO DAILY #90 caps 10/26/23 12/29/23 Rx release (Cymbalta) meloxicam 15 mg tablet 15 mg PO DAILY #90 tabs 12/14/23 12/29/23 Rx tizanidine 2 mg capsule 2 mg PO Q6-8H PRN Muscle Spasm 12/16/23 12/29/23 History Allergies Allergy/AdvReac Type Severity Reaction Status Date / Time aloe Allergy Mild Rash Verified 12/29/23 08:06 sumatriptan [From Imitrex] AdvReac Severe Difficulty Verified 12/29/23 08:06 Swallowing Exam Const: General: alert Orientation/consciousness: patient oriented x3 Resp: Auscultation: clear to auscultation bilaterally Cardio: Rhythm: regular rhythm GI: GI Palp: Yes Soft to palpation and No Tenderness to palpation present (GI) Neuro: General: patient oriented x3 Assessment and Plan Assessment and plan (1) Blood in stool: Code(s): K92.1 - Melena Status: Acute Assessment and Plan: Colonoscopy with possible biopsy or polypectomy or cautery or injection of substances.
--- NOTE | 2023-12-29 07:20 | P.PNAN_ITS ---
Anes - Initial Pre Proc Eval Procedure: Operation Date: 12/29/23 09:30 Proposed Procedures p Diagnostic Colonoscopy - Iggy Ahn MD Date/Time: 12/29/23 07:20 Surgeon: Iggy Ahn MD Pre Op Diagnosis: Melena Patient Data Age: 38 Gender: M Height: 1.93 m Weight: 93.531 kg Allergies Allergy/AdvReac Type Severity Reaction Status Date / Time aloe Allergy Mild Rash Verified 12/29/23 08:06 sumatriptan [From Imitrex] AdvReac Severe Difficulty Verified 12/29/23 08:06 Swallowing Home Medications Medication Instructions Recorded Confirmed Type albuterol sulfate 90 mcg/actuation 2 puff inhalation Q4-6H PRN 09/15/19 12/29/23 History aerosol inhaler (ProAir HFA) Shortness Of Breath Or Wheezing blood sugar diagnostic (Blood #50 ea 01/29/22 12/16/23 Rx Glucose Test strips) blood-glucose meter (Blood Glucose #1 ea 01/29/22 12/16/23 Rx Monitoring kit) lancets 32 gauge #100 ea 01/29/22 12/16/23 Rx cholecalciferol (vitamin D3) 1,250 1,250 mcg PO WEEKLY 08/27/22 12/29/23 History mcg (50,000 unit) capsule pioglitazone 30 mg tablet 30 mg PO HS 08/27/22 12/29/23 History empagliflozin 25 mg tablet 25 mg PO DAILY 12/06/22 12/29/23 History (Jardiance) ergocalciferol (vitamin D2) 1,000 1,000 unit PO DAILY 12/06/22 12/29/23 History unit capsule loratadine 10 mg tablet (Claritin) 10 mg PO DAILY 12/06/22 12/29/23 History metformin 1,000 mg tablet 1,000 mg PO BID 12/06/22 12/29/23 History ubrogepant 50 mg tablet (Ubrelvy) 50 mg PO ONCE #10 tabs 12/22/22 12/29/23 Rx dulaglutide 4.5 mg/0.5 mL 4.5 mg subcut WEEKLY 07/24/23 12/29/23 History subcutaneous pen injector (Trulicity) insulin lispro 100 unit/mL 3 unit subcut QHS 07/24/23 12/29/23 History subcutaneous pen (Humalog KwikPen (U-100) Insulin) duloxetine 60 mg capsule,delayed 60 mg PO DAILY #90 caps 10/26/23 12/29/23 Rx release (Cymbalta) meloxicam 15 mg tablet 15 mg PO DAILY #90 tabs 12/14/23 12/29/23 Rx tizanidine 2 mg capsule 2 mg PO Q6-8H PRN Muscle Spasm 12/16/23 12/29/23 History Patient hx anesthesia problems: none Family hx anesthesia problems: none Results Review: All pre-operative results and documents have been reviewed as part of the pre- operative evaluation. [facility] Past Medical History Medical History Acute frontal sinusitis Acute hyperkalemia Allergies Asthenia Asthma C. difficile diarrhea Chronic pain COVID-19 Degenerative disc disease Dehydration Diabetes type 2, controlled Diarrhea Dizziness Elevated liver enzymes Gynecomastia Herpes labialis Hyperkalemia Influenza A Injection (erythema) Steroid injection 03/2019 Left knee pain Left radial fracture Nausea & vomiting Orthostasis Plantar wart of left foot Pneumomediastinum Transaminitis Type 2 diabetes mellitus Viral illness Viral pharyngitis Vitamin D deficiency Family History Family History Sibling Family history of blood dyscrasia Mother Patient's mother is in good health Father Patient's father is in good health Hypertension Other Lupus Grandparent Heart disease Diabetes mellitus Social History Social History Social History: Live house with 2 children and 1 dog. No smoking, drinking or drug use. caffeine Smoking status: Never smoker Second hand tobacco smoke exposure: No Alcohol intake: never Alcohol use details: Pt drinks rarely. Substance use: never Substance use type: does not use Do You Feel Safe in your Home?: Yes Lack of Transportation: No Lack of Food: Never True Current Housing: I Have Housing Concerned About Future Housing: No Difficulty Paying Gas/Electric Bills: No Difficulty Paying for Meds: No Currently Unemployed: No Education: Bachelor's Degree Difficulty w/ Childcare or Family Care: No Living arrangements: with family Spiritual care concerns: No Anes - Eval Final PreProcedure Day of Procedure 12/29/23 07:20 Patient weight: overweight Heart: regular rate and rhythm Lungs: clear to auscultation Airway: Mallampati scale class II Neurological: alert and oriented Last oral intake: >/= 8 hours ASA classification: III Emergent: no Anesthetic plan: proceed Anesthesia type and monitoring: general GIVS and standard monitoring Results Review: All pre-operative results and documents have been reviewed as part of the pre- operative evaluation. Informed Consent: The patient's anesthetic plan and its attendant risks and benefits were discussed with the patient/family/POA. Questions were solicited and answers prov ided to the satisfaction of the patient/family/POA.
[2023-12-29 08:15] VITALS: BP 123/90; PULSE 88; RESP 20; TEMP 37.4; O2SAT 100; BMI 24.5
[2023-12-29] MEDS: LACTATED RINGERS 1,000 ML 150 ML IV CONT (08:29)
[2023-12-29 08:32] LABS: Glucose Point of Care 124 mg/dl (65-105)
[2023-12-29 09:28] VITALS: BP 104/78; PULSE 84; RESP 16; O2SAT 100
[2023-12-29 09:40] VITALS: BP 125/79; PULSE 78; RESP 16; O2SAT 100
[2023-12-29 09:50] VITALS: BP 126/86; PULSE 76; RESP 16; O2SAT 100
--- NOTE | 2023-12-29 12:22 | WPDANESPN ---
Anes - Prog Note Post-Op Date/Time: 12/29/23 12:22 Cardiovascular status: normal Respiratory status: normal Airway patency: baseline Mental status: baseline Post-Op hydration status: normal Vital Signs: Last Vital Signs Temp 37.4 C 12/29/23 08:15 Pulse 76 12/29/23 09:50 Resp 16 12/29/23 09:50 BP 126/86 12/29/23 09:50 Pulse Ox 100 12/29/23 09:50 O2 Del Method Room Air 12/29/23 09:50 Pain Score (VAS): 0 I/O: Intake & Output 12/28/23 12/29/23 12/29/23 23:59 07:59 15:59 Intake Total 500 Balance 500 12/29/23 08:27 POC Capillary Glucose 124 H Post-procedural complaints: none Patient Feedback: Patient satisfied with anesthetic care. Other Findings: Patient vital signs back to baseline. Patient denies nausea and vomiting. Patient's pain under control. Patient OK for discharge.
== END 2023-12-29 10:07 | disposition home or self-care (01) ==
PROVIDERS: PCP Internal Medicine; Visit Provider Internal Medicine Gastroenterology
PROC: 0DJD8ZZ Inspection of Lower Intestinal Tract, Via Natural or Artificial Opening Endoscopic (ICD-10-PCS; CPT 45378; principal; 2023-12-29 09:30)
DX: K92.1 Melena (principal); K64.8 Other hemorrhoids
CPT/HCPCS: 45378

== ENCOUNTER 2024-01-23 08:44 | Emergency (ER) | payer OTHER, SELFPAY ==
--- NOTE | ~2024-01-23 | CT_ITS ---
EXAMINATION: CT lumbar spine wo con DATE: 01/23/2024 10:02 INDICATION: Low back pain. TECHNIQUE: Computed tomography (CT) of the lumbar spine was performed without intravenous contrast. A utomated exposure control and iterative reconstruction technique were employed. The dose-length produ ct was 726.94 mGy-cm. COMPARISON: Lumbar spine radiographs 09/17/2023 FINDINGS: There is 3 degrees levocurvature of lumbar spine. There are chronic bilateral L3 pars defec ts. There is mild chronic anterior wedging of T12 and L1 vertebral bodies. There is severely decrease d disc height at L3-L4. The following disc levels are specifically discussed: L1-L2: The disc does not extend beyond the endplate margin. There is severe bilateral facet joint ost eoarthritis. There is no neural foraminal stenosis. There is no central canal stenosis. L2-L3: The disc does not extend beyond the endplate margin. There is moderate bilateral facet joint o steoarthritis. There is no neural foraminal stenosis. There is no central canal stenosis. L3-L4: The disc is bulging. There is moderate bilateral facet joint osteoarthritis. There is moderate right and mild left neural foraminal stenosis. There is mild central canal stenosis. L4-L5: The disc is bulging. There is mild bilateral facet joint osteoarthritis. There is mild bilater al neural foraminal stenosis. There is mild central canal stenosis. L5-S1: The disc is bulging. There is severe bilateral facet joint osteoarthritis. There is mild bilat eral neural foraminal stenosis. There is mild central canal stenosis. IMPRESSION: 1. Chronic bilateral L3 pars defects. 2. Severe spondylosis at L3-L4 and mild spondylosis at other levels. Reviewed, dictated and finalized at location A.
[2024-01-23 08:55] VITALS: BP 116/97; PULSE 98; RESP 20; TEMP 36.4; O2SAT 100
--- NOTE | 2024-01-23 09:28 | ED.BACK ---
HPI - Back Pain/Injury General Chief Complaint: Back Pain/Injury Stated Complaint: back pain Time Seen by Provider: 01/23/24 08:59 History of Present Illness HPI Narrative: This is a 38-year-old male, history of diabetes and lumbar spondylosis, who presents to the emergency department complaining of low back pain, worse in last few days. The patient describes the pain as sharp, primarily on the right side though now radiating to the left and towards the groin. It is rated 3-4/10 today. The patient states yesterday, he had some bilateral hip weakness on standing but was able to walk today without difficulty. He denies loss of sensation groin, loss of bowel/bladder control or other weakness/numbness in legs. He denies fevers or preceding trauma. He has no other complaints at this time. Related Data Home Medications Medication Instructions Recorded Confirmed albuterol sulfate 90 mcg/actuation 2 puff inhalation Q4-6H PRN 09/15/19 01/20/24 aerosol inhaler (ProAir HFA) Shortness Of Breath Or Wheezing cholecalciferol (vitamin D3) 1,250 1,250 mcg PO WEEKLY 08/27/22 01/20/24 mcg (50,000 unit) capsule pioglitazone 30 mg tablet 30 mg PO HS 08/27/22 01/20/24 empagliflozin 25 mg tablet 25 mg PO DAILY 12/06/22 01/20/24 (Jardiance) ergocalciferol (vitamin D2) 1,000 1,000 unit PO DAILY 12/06/22 01/20/24 unit capsule loratadine 10 mg tablet (Claritin) 10 mg PO DAILY 12/06/22 01/20/24 metformin 1,000 mg tablet 1,000 mg PO BID 12/06/22 01/20/24 dulaglutide 4.5 mg/0.5 mL 4.5 mg subcut WEEKLY 07/24/23 01/20/24 subcutaneous pen injector (Trulicity) insulin lispro 100 unit/mL 5 unit subcut QHS 01/20/24 01/20/24 subcutaneous pen (Humalog KwikPen (U-100) Insulin) Allergies Allergy/AdvReac Type Severity Reaction Status Date / Time aloe Allergy Mild Rash Verified 01/23/24 09:01 sumatriptan [From Imitrex] AdvReac Severe Difficulty Verified 01/23/24 09:01 Swallowing Review of Systems Review of Systems: All systems reviewed & are unremarkable except as noted in HPI and below PMFSH Past Medical History Medical History Acute frontal sinusitis Acute hyperkalemia Allergies Asthenia Asthma C. difficile diarrhea Chronic pain COVID-19 Degenerative disc disease Dehydration Diabetes type 2, controlled Diarrhea Dizziness Elevated liver enzymes Gynecomastia Herpes labialis Hyperkalemia Influenza A Injection (erythema) Steroid injection 03/2019 Left knee pain Left radial fracture Nausea & vomiting Orthostasis Plantar wart of left foot Pneumomediastinum Transaminitis Type 2 diabetes mellitus Viral illness Viral pharyngitis Vitamin D deficiency Family History Family History Sibling Family history of blood dyscrasia Mother Patient's mother is in good health Father Patient's father is in good health Hypertension Other Lupus Grandparent Heart disease Diabetes mellitus Social History Social History Social History: Live house with 2 children and 1 dog. No smoking, drinking or drug use. caffeine Smoking status: Never smoker Second hand tobacco smoke exposure: No Alcohol intake: never Alcohol use details: Pt drinks rarely. Substance use: never Substance use type: does not use Do You Feel Safe in your Home?: Yes Lack of Transportation: No Lack of Food: Never True Current Housing: I Have Housing Concerned About Future Housing: No Difficulty Paying Gas/Electric Bills: No Difficulty Paying for Meds: No Currently Unemployed: No Education: Bachelor's Degree Difficulty w/ Childcare or Family Care: No Living arrangements: with family Spiritual care concerns: No Exam Narrative: GENERAL: Well-developed, well-nourished, and in no acute distress. HEAD: Normocephalic, atraumatic. EYES: PERRLA and
[2024-01-23] MEDS: ACETAMINOPHEN 500 MG TABLET 1000 MG PO (09:44)
[2024-01-23] MEDS: CYCLOBENZAPRINE HCL 5 MG TABLET PO (09:44)
[2024-01-23] MEDS: LIDOCAINE 5% PATCH 1 PATCH TRANSDERM (09:44)
[2024-01-23 11:03] VITALS: BP 115/81; PULSE 77; RESP 18; O2SAT 98
== END 2024-01-23 11:13 | disposition home or self-care (01) ==
PROVIDERS: Emergency Provider Preventive Medicine Aerospace Medicine; PCP Internal Medicine
DX: M54.41 Lumbago with sciatica, right side (principal); J45.909 Unspecified asthma, uncomplicated; E11.9 Type 2 diabetes mellitus without complications; Z79.4 Long term (current) use of insulin
CPT/HCPCS: 72131; 99284; A9270

== ENCOUNTER 2024-03-02 10:40 | Outpatient (CLI) | payer OTHER, SELFPAY ==
--- NOTE | ~2024-03-02 | US_ITS ---
TESTICULAR ULTRASOUND (Doppler ultrasound interrogation techniques used as needed for this exam.) Ordering provider: Monique Agrawal, SPECIAL EDUCATION AIDE History: . R TESTICULAR PAIN . Comparison: None. FINDINGS: TESTICLES: Normal in size. The right measures 5.3 x 2.5 x 3.2 cm and the left measures 4.9 x 2.5 x 3. 3 cm. Normal echogenicity bilaterally without mass lesion. Normal Doppler flow bilaterally. EPIDIDYMIDES: Normal in size. The right measures 1 cm and the left 0.9 cm. Normal echogenicity bilat erally. Both demonstrate normal Doppler flow. HYDROCELE: None. VARICOCELE: None. OTHER ABNORMALITY: Complex echogenicity area is seen in the subcutaneous tissues superior lateral to the right testicle9 measures 1.1 x 0.9 x 1.2 cm. Blood flow is seen in this area. IMPRESSION: No evidence of torsion or epididymoorchitis. Complex echogenicity area is seen in the subcutaneous tissues superior lateral to the right testicle measures 1.1 x 0.9 x 1.2 cm. Blood flow is seen in this area. This may represent a lymph node, comple x cyst or area of focal infection. Follow-up advised. Otherwise, normal testicular ultrasound. Reviewed, dictated and finalized at location A. IMPRESSION: No evidence of torsion or epididymoorchitis. Complex echogenicity area is seen in the subcutaneous tissues superior lateral to the right testicle measures 1.1 x 0.9 x 1.2 cm. Blood flow is seen in this a jordan. This may represent a lymph node, complex cyst or area of focal infection. Follow-up advised. Otherwise, normal testicular ultrasound.
== END 2024-03-02 10:41 ==
LOC: MICIMG 10:41
PROVIDERS: PCP Nurse Practitioner Family; Visit Provider Nurse Practitioner Family
DX: N50.811 Right testicular pain (principal)
CPT/HCPCS: 76870; 93976

== ENCOUNTER 2024-07-06 08:22 | Outpatient (CLI) | payer OTHER, SELFPAY ==
--- NOTE | ~2024-07-06 | MR_ITS ---
EXAMINATION: MR lumbar spine wo con DATE: 07/06/2024 08:58 INDICATION: Low back pain. Spondylolisthesis. TECHNIQUE: Magnetic resonance imaging (MRI) of the lumbar spine was performed without intravenous con trast. Sequences included sagittal T2-weighted FSE, sagittal T2-weighted FS FSE, sagittal T1-weighted FSE, and axial T2-weighted FSE. COMPARISON: CT lumbar spine dated 01/23/2024 FINDINGS: 5 degrees lumbar levocurvature. Sagittal alignment is normal. Vertebral body heights are normal. Kamini lar fissure and severe right-sided predominant disc height loss at L3-L4 with left-sided fibrovascula r degenerative endplate changes. Marrow signal is otherwise normal. Disc desiccation and mild disc he ight loss at both L4-L5 and L5-S1.. Chronic bilateral L3 pars interarticularis defects. The conus med ullaris terminates at L1-L2. There is normal signal in the caudal spinal cord. Paravertebral soft tis sues are unremarkable. The following disc levels are specifically discussed: T12-L1: The disc does not extend beyond the endplate margin. There is no facet joint osteoarthritis. There is no neural foraminal stenosis. There is no central canal stenosis. L1-L2: The disc does not extend beyond the endplate margin. There is moderate bilateral facet joint o steoarthritis. There is no neural foraminal stenosis. There is no central canal stenosis. L2-L3: The disc does not extend beyond the endplate margin. There is moderate bilateral facet joint o steoarthritis. There is no neural foraminal stenosis. There is no central canal stenosis. L3-L4: Mild diffuse disc bulge with annular fissure and superimposed left subarticular to right john inal zone disc extrusion with disc material extending up to 5 mm cephalad to the level of the inferio r endplate of L3. There is mild left and moderate right facet joint osteoarthritis. There is mild lef t and moderate right neural foraminal stenosis. There is mild to moderate central canal stenosis. L4-L5: Disc is mildly bulging. There is mild left and moderate right facet joint osteoarthritis. Ther e is mild bilateral neural foraminal stenosis. There is mild central canal stenosis. L5-S1: Disc is mildly bulging. There is moderate left and and moderate to severe right facet joint os teoarthritis. There is mild right and minimal left neural foraminal stenosis. There is mild central c anal stenosis. IMPRESSION: 1. Severe spondylosis at L3-L4 with minimal spondylosis in the more cephalad and mild spondylosis in the more caudal lumbar spine. 2. Chronic bilateral L3 pars defects. Reviewed, dictated and finalized at location A. IMPRESSION: 1. Severe spondylosis at L3-L4 with minimal spondylosis in the more cephalad an d mild spondylosis in the more caudal lumbar spine. 2. Chronic bilateral L3 pars defects.
== END 2024-07-06 08:23 | disposition home or self-care (01) ==
LOC: GOSHIMG 08:23
PROVIDERS: PCP Internal Medicine; Visit Provider Neurological Surgery
DX: M43.16 Spondylolisthesis, lumbar region (principal); M47.896 Other spondylosis, lumbar region
CPT/HCPCS: 72148

== ENCOUNTER 2024-07-06 09:42 | Outpatient (CLI) | payer OTHER, SELFPAY ==
--- NOTE | ~2024-07-06 | XR_ITS ---
EXAMINATION: XR scoliosis survey DATE: 07/06/2024 10:19 INDICATION: Spondylolisthesis, lumbar region. TECHNIQUE: Anteroposterior and lateral views of the entire spine standing were obtained. COMPARISON: None. FINDINGS: Right femoral head stands 5 mm higher than the left. There are 12 pairs of ribs. There are 5 nonrib-bearing lumbar segments. There is 9 degrees dextrocurvature from T5 to T10 by the Asencio metho d. There is 5 degrees levocurvature from T10 to L4. There is moderate lumbar spondylosis and mild tho racic spondylosis. There is mild chronic anterior wedging of T12 vertebral body. IMPRESSION: 1. 9 degrees dextrocurvature from T5 to T10 and 5 degrees levocurvature from T10 to L4. Reviewed, dictated and finalized at location B. IMPRESSION: 1. 9 degrees dextrocurvature from T5 to T10 and 5 degrees levocurvature from T1 0 to L4.
--- NOTE | ~2024-07-06 | XR_ITS ---
3 VIEWS LUMBAR SPINE Ordering provider: Robert Trevizo MD History: . M43.16 - Spondylolisthesis, lumbar region . Comparison: None. FINDINGS: VERTEBRAL BODIES: No visible fracture or subluxation. Degenerative changes of the spine. DISK SPACES: Narrowing of the disc L3-L4. Facet joint disease at the level of L4-L5 and L5-S1. SOFT TISSUES: Normal. IMPRESSION: No acute osseous abnormality lumbar spine. Degenerative disc disease at the level of L3-L4. Reviewed, dictated and finalized at location A.
== END 2024-07-06 09:43 | disposition home or self-care (01) ==
LOC: ANHIMG 09:45
PROVIDERS: PCP Internal Medicine; Visit Provider Neurological Surgery
DX: M43.16 Spondylolisthesis, lumbar region (principal); M51.369 Other intervertebral disc degeneration, lumbar region without mention of lumbar back pain or lower extremity pain
CPT/HCPCS: 72082; 72110

== ENCOUNTER 2024-09-02 09:54 | Outpatient (CLI) | payer OTHER, SELFPAY ==
--- NOTE | 2024-09-02 10:53 | ECG_ITS ---
Test Date: 2024-09-02 11:08:06 Measurements Intervals [place] Rate: 70 P: 61 GA: 145 QRS: 72 QRSD: 100 T: 44 QT: 393 QTc: 426 Interpretive Statements SINUS RHYTHM EARLY REPOLARIZATION [ST ELEVATION WITH NORMALLY INFLECTED T WAVE] BORDERLINE ECG Electronically Signed On 09-02-2024 17:24:32 GROUP CAPTAIN by Flaquito Junior M.D.
[2024-09-02 11:18] LABS: Hematocrit 43.4 % (42.0-52.0); Hemoglobin 14.1 g/dL (14.0-18.0); Mean Corpuscular HGB Conc 32.5 g/dl (32-36); Mean Corpuscular Hemoglobin 30.3 pg (26-34); Mean Corpuscular Volume 93.1 fl (80-100); Mean Platelet Volume 9.7 fl (7.4-10.4); Platelet Count Result 336 k/mm3 (150-375); Red Blood Count 4.66 M/mm3 (4.6-6.20); White Blood Count 6.2 K/mm3 (4.5-10.0)
[2024-09-02 11:20] LABS: Add Urine Microscopic? NO; Appearance Urine Clear (Clear); Bilirubin Urine Negative (Negative); Blood Urine Negative (Negative); Color Urine Yellow (Yellow); Glucose Urine UA 3+ mg/dL (Negative); Ketones Urine Negative (Negative); Leukocyte Esterase Ur Negative LEU/UL (Negative); Nitrate Urine Negative (Negative); Protein Urine Negative (Negative); Specific Grav Ur 1.025 (1.001-1.035); Urobilinogen Urine 0.2 mg/dL (<2.0)
[2024-09-02 11:27] LABS: Hemoglobin A1C 6.9 % (<5.7)
[2024-09-02 11:28] LABS: Anion Gap 3 mmol/L (4-12); Blood Urea Nitrogen 17 mg/dL (9-20); Calcium 9.6 mg/dL (8.4-10.2); Carbon Dioxide 30 mmol/L (22-30); Chloride 103 mmol/L (98-107); Estimated Glomerular Filt Rate > 60; Glucose 111 mg/dL (65-110); Potassium 4.6 mmol/L (3.4-5.0); Sodium 136 mmol/L (137-145)
[2024-09-02 11:29] LABS: INR 0.9; Prothrombin Time 12.9 Seconds (11.1-14.7)
[2024-09-02 11:30] LABS: Partial Thromboplastin Time 33.2 Seconds (22.3-36.8)
== END 2024-09-02 09:55 | disposition home or self-care (01) ==
PROVIDERS: PCP Internal Medicine; Visit Provider Neurological Surgery
DX: M43.16 Spondylolisthesis, lumbar region (principal); R94.31 Abnormal electrocardiogram [ECG] [EKG]; E11.9 Type 2 diabetes mellitus without complications
CPT/HCPCS: 36415; 80048; 81003; 83036; 85027; 85610; 85730; 93005

== ENCOUNTER 2024-09-23 00:17 | Day surgery (SDC) | payer OTHER, SELFPAY ==
[2024-09-02 10:23] VITALS: BP 125/88; RESP 16; TEMP 37.2; O2SAT 100; BMI 25.2
--- NOTE | 2024-09-02 10:38 | PC.NURSE ---
Report to the Outpatient Waiting Room, entrance under the green pavilion located off [facility], at time _06:00am on date 09/23/24 . Planned Procedure Time: _07:30am .? Time changes happen often and if your time is changed the preop area will call you the afternoon before. - You and your visitor will be asked to self-screen and do not enter if you have any COVID symptoms. Please call surgeon if you need to reschedule. - A mask is optional within the hospital at this time. Patients may have clear liquids (water, carbonated beverages, clear teas, apple juice) until 3 hours prior to surgery with a maximum of 20 ounces. - No food from midnight until time of surgery and no smoking. This includes no chewing gum, candy or mints. (0430am) Take only the following medications with a SIP of water on the morning of surgery: ___Duloxetine, albuteral if needed DO NOT STOP ANY OF YOUR OTHER PRESCRIPTION MEDICATIONS PRIOR TO SURGERY EXCEPT THE FOLLOWING Medications to discontinue per physician Hold all vitamins 3 days prior to surgery per Anesthesia Date to take last dose 09/19/24 . Please no make-up, nail slovak, hairspray, perfume, deodorant, or body powder the day of surgery.? No jewelry (including any body piercings) or valuables the day of surgery, leave them at home.? Please take a shower or bath the night before, or the morning of, surgery with an antibacterial soap.? Wear comfortable, loose fitting clothing.? - Jewelry must be removed prior to entering the operating room.? Rings and piercings that are not removed may be cut off. - The hospital will not accept responsibility for valuables.? - Please leave all valuables, including medications, at home the day of surgery. If you are going home after surgery, a licensed stacker driver must drive you home.? - NO public transportation without another adult if you receive anesthesia. - We recommend that an adult stay with you for 24 hours following discharge. - We also recommend that you do not drive, make important decision, drink alcoholic beverages, or take any drugs that were not prescribed by your health care provider for at least 24 hours after your discharge time. Follow any additional instructions given to you from your surgeon. Telephone instructions given to __Patient and asked if any additional questions and then verbalized understanding. Patient advised to call surgeon office or pre surgery nurse liaison [phone] if any additional questions.
[2024-09-23] VITALS (17 sets, daily range): BP systolic 112–134; BP diastolic 59–93; PULSE 73–102; RESP 10–20; TEMP 35.9–36.8; O2SAT 97–100
--- NOTE | ~2024-09-23 | XR_ITS ---
EXAMINATION: XR fluoroscopy no charge DATE: 09/23/2024 10:45 INDICATION: L3-L4 posterior lumbar interbody fusion TECHNIQUE: 5 fluoroscopic images of the lumbar spine were obtained during procedure performed by Dr. Trevizo. Radiologist was not present for the imaging or procedure. The amount of fluoroscopy time used d uring this procedure was 0.5 minutes. Total DAP was 11.778 Gycm^2 COMPARISON: 07/06/2024 FINDINGS: Images demonstrate and change of an L3 laminectomy and L3-L4 anterior and posterior spinal fusion wit h interbody fusion device and bilateral vertical aldo and pedicle screw fixation. Expected soft tissue gas at the operative bed. IMPRESSION: 1. Fluoroscopy utilized during L3 laminectomy and combined instrumented L3-L4 anterior and posterior spinal fusion. See procedure note for further detail. Reviewed, dictated and finalized at location B. E SETTER GRINDER MACHINE IMPRESSION: 1. Fluoroscopy utilized during L3 laminectomy and combined instrumented L3-L4 a nterior and posterior spinal fusion. See procedure note for further detail.
[2024-09-23 06:43] LABS: Glucose Point of Care 113 mg/dl (65-105)
--- NOTE | 2024-09-23 06:59 | P.PNAN_ITS ---
Anes - Initial Pre Proc Eval Procedure: Operation Date: 09/23/24 07:30 Proposed Procedures p L3, L4, Posterior Lumbar Interbody Fusion - Robert Trevizo MD Date/Time: 09/23/24 06:59 Surgeon: Robert Trevizo MD Pre Op Diagnosis: lumbar spondylolisthesis Patient Data Age: 39 Gender: M Height: 1.94 m Weight: 95.5 kg Last Vital Signs Temp 99 F 09/02/24 10:23 Resp 16 09/02/24 10:23 BP 125/88 09/02/24 10:23 Pulse Ox 100 09/02/24 10:23 Allergies Allergy/AdvReac Type Severity Reaction Status Date / Time aloe Allergy Mild Rash Verified 09/02/24 10:12 sumatriptan (From Imitrex) AdvReac Severe Difficulty Verified 09/02/24 10:12 Swallowing Home Medications ?Medication ?Instructions ?Recorded ?Confirmed ?Type albuterol sulfate 90 mcg/actuation 2 puff inhalation Q4-6H PRN 09/15/19 09/02/24 History aerosol inhaler (ProAir HFA) Shortness Of Breath Or Wheezing blood sugar diagnostic (Blood #50 ea 01/29/22 01/28/24 Rx Glucose Test strips) blood-glucose meter (Blood Glucose #1 ea 01/29/22 01/28/24 Rx Monitoring kit) lancets 32 gauge #100 ea 01/29/22 01/28/24 Rx cholecalciferol (vitamin D3) 1,250 1,250 mcg PO WEEKLY 08/27/22 09/02/24 History mcg (50,000 unit) capsule pioglitazone 30 mg tablet 45 mg PO HS 08/27/22 09/02/24 History empagliflozin 25 mg tablet 25 mg PO DAILY 12/06/22 09/02/24 History (Jardiance) ergocalciferol (vitamin D2) 1,000 1,000 unit PO DAILY 12/06/22 09/02/24 History unit capsule metformin 1,000 mg tablet 1,000 mg PO BID 12/06/22 09/02/24 History ubrogepant 50 mg tablet (Ubrelvy) 50 mg PO ONCE #10 tabs 12/22/22 09/02/24 Rx insulin lispro 100 unit/mL 5 unit subcut DAILY BLOOD SUGAR 01/20/24 09/02/24 History subcutaneous pen (Humalog KwikPen (U-100) Insulin) duloxetine 60 mg capsule,delayed 60 mg PO DAILY #30 caps 08/12/24 09/02/24 Rx release (Cymbalta) insulin glargine 100 unit/mL (3 6 unit subcut QPM 09/02/24 09/02/24 History mL) subcutaneous pen (Lantus Solostar U-100 Insulin) semaglutide 1 mg/dose (4 mg/3 mL) 1 mg subcut WEEKLY 09/02/24 09/02/24 History subcutaneous pen injector (Ozempic) Laboratory Tests 09/23/24 06:41 POC Capillary Glucose 113 H mg/dl (65-105) Patient hx anesthesia problems: other (slow to emerge in the past. ) Family hx anesthesia problems: none Results Review: All pre-operative results and documents have been reviewed as part of the pre- operative evaluation. [facility] Past Medical History Medical History Spondylolisthesis, lumbar region Diabetes type 2, controlled Acute frontal sinusitis Left knee pain Dizziness Viral pharyngitis Orthostasis C. difficile diarrhea Diarrhea Dehydration Gynecomastia Left radial fracture Asthma Asthenia Nausea & vomiting Pneumomediastinum COVID-19 Influenza A Vitamin D deficiency Acute hyperkalemia Herpes labialis Degenerative disc disease Plantar wart of left foot Viral illness Injection (erythema) Steroid injection 03/2019 Chronic pain Transaminitis Allergies Elevated liver enzymes Hyperkalemia Type 2 diabetes mellitus Family History Family History Sibling Family history of blood dyscrasia Mother Patient's mother is in good health Father Patient's father is in good health Hypertension Other Lupus Grandparent Heart disease Diabetes mellitus Social History Social History Social History: Live house with 2 children and 1 dog. No smoking, drinking or drug use. caffeine Smoking status: Never smoker Second hand tobacco smoke exposure: No Alcohol intake: never Alcohol use details: Pt drinks rarely. Substance use: never Substance use type: does not use Do You Feel Safe in your Home?: Yes Lack of Transportation: No Lack of Food: Never True Current Housing: I Have Housing Concerned About Future Housing: No Difficulty Paying Gas/Electric Bills: No Difficulty Paying for Meds: No Currently Unemployed: No Education: Bachelor's Degree Difficulty w/ Childcare or Family Care: No Living arrangements: with family Additional living arrangements comments: Spiritual care concerns: No Anes - Eval Final PreProcedure Day of Procedure 09/23/24 06:59 Patient weight: normal Heart: regular rate and rhythm Lungs: clear to auscultation Airway: Mallampati scale class 1 and special considerations Neurological: alert and oriented Last oral intake: >/= 8 hours ASA classification: III Emergent: no Anesthetic plan: proceed Anesthesia type and monitoring: general ETT and standard monitoring Results Review: All pre-operative results and documents have been reviewed as part of the pre- operative evaluation. DM, on multiple meds, fsbs 113 w reported HgA1c 6.5-estimated 7 by his CGM. Informed Consent: The patient's anesthetic plan and its attendant risks and benefits were discussed with the patient/family/POA. Questions were solicited and answers provided to the satisfaction of the patient/family/POA.
[2024-09-23] MEDS: LACTATED RINGERS 1,000 ML 30 ML IV CONT ×3 (07:00→12:00)
--- NOTE | 2024-09-23 07:13 | PM.IMHP ---
H&P: HPI History of Present Illness Date/Time: 09/23/24 07:13 Chief Complaint: low back pain radiating to hips and groin Narrative: 39-year-old healthy gentleman who presents with low back pain which radiates around his hips to his groin area on the right side more than the left he also has some pain that wraps around his groin towards the top of his thigh. He has failed conservative management in terms of PT and pain management. He has bilateral pars defects and is now here for an elective L3/4 posterior spinal interbody fusion. Review of Systems Review of Systems: negative [facility] Past Medical History Medical History Spondylolisthesis, lumbar region Diabetes type 2, controlled Acute frontal sinusitis Left knee pain Dizziness Viral pharyngitis Orthostasis C. difficile diarrhea Diarrhea Dehydration Gynecomastia Left radial fracture Asthma Asthenia Nausea & vomiting Pneumomediastinum COVID-19 Influenza A Vitamin D deficiency Acute hyperkalemia Herpes labialis Degenerative disc disease Plantar wart of left foot Viral illness Injection (erythema) Steroid injection 03/2019 Chronic pain Transaminitis Allergies Elevated liver enzymes Hyperkalemia Type 2 diabetes mellitus Family History Family History Sibling Family history of blood dyscrasia Mother Patient's mother is in good health Father Patient's father is in good health Hypertension Other Lupus Grandparent Heart disease Diabetes mellitus Social History Social History Social History: Live house with 2 children and 1 dog. No smoking, drinking or drug use. caffeine Smoking status: Never smoker Second hand tobacco smoke exposure: No Alcohol intake: never Alcohol use details: Pt drinks rarely. Substance use: never Substance use type: does not use Do You Feel Safe in your Home?: Yes Lack of Transportation: No Lack of Food: Never True Current Housing: I Have Housing Concerned About Future Housing: No Difficulty Paying Gas/Electric Bills: No Difficulty Paying for Meds: No Currently Unemployed: No Education: Bachelor's Degree Difficulty w/ Childcare or Family Care: No Living arrangements: with family Additional living arrangements comments: Spiritual care concerns: No Meds Home Medications and Allergies Home Medications ?Medication ?Instructions ?Recorded ?Confirmed ?Type albuterol sulfate 90 mcg/actuation 2 puff inhalation Q4-6H PRN 09/15/19 09/02/24 History aerosol inhaler (ProAir HFA) Shortness Of Breath Or Wheezing blood sugar diagnostic (Blood #50 ea 01/29/22 01/28/24 Rx Glucose Test strips) blood-glucose meter (Blood Glucose #1 ea 01/29/22 01/28/24 Rx Monitoring kit) lancets 32 gauge #100 ea 01/29/22 01/28/24 Rx cholecalciferol (vitamin D3) 1,250 1,250 mcg PO WEEKLY 08/27/22 09/02/24 History mcg (50,000 unit) capsule pioglitazone 30 mg tablet 45 mg PO HS 08/27/22 09/02/24 History empagliflozin 25 mg tablet 25 mg PO DAILY 12/06/22 09/02/24 History (Jardiance) ergocalciferol (vitamin D2) 1,000 1,000 unit PO DAILY 12/06/22 09/02/24 History unit capsule metformin 1,000 mg tablet 1,000 mg PO BID 12/06/22 09/02/24 History ubrogepant 50 mg tablet (Ubrelvy) 50 mg PO ONCE #10 tabs 12/22/22 09/02/24 Rx insulin lispro 100 unit/mL 5 unit subcut DAILY BLOOD SUGAR 01/20/24 09/02/24 History subcutaneous pen (Humalog KwikPen (U-100) Insulin) duloxetine 60 mg capsule,delayed 60 mg PO DAILY #30 caps 08/12/24 09/02/24 Rx release (Cymbalta) insulin glargine 100 unit/mL (3 6 unit subcut QPM 09/02/24 09/02/24 History mL) subcutaneous pen (Lantus Solostar U-100 Insulin) semaglutide 1 mg/dose (4 mg/3 mL) 1 mg subcut WEEKLY 09/02/24 09/02/24 History subcutaneous pen injector (Ozempic) Allergies Allergy/AdvReac Type Severity Reaction Status Date / Time aloe Allergy Mild Rash Verified 09/02/24 10:12 sumatriptan (From Imitrex) AdvReac Severe Difficulty Verified 09/02/24 10:12 Swallowing Exam Narrative: awake alert no acute distress MAEW without focal deficit. Assessment and Plan Assessment and plan (1) Spondylolisthesis, lumbar region: Code(s): M43.16 - Spondylolisthesis, lumbar region Status: Acute Plan Proceed with elective L3/4 PLIF.
--- NOTE | 2024-09-23 07:15 | WPDHPUPDATE1 ---
History and Physical Update Update Date/Time: 09/23/24 07:15 History and Physical has been reviewed, including an updated exam of the patient. There are NO changes in the patient's condition. Risks, benefits, and alternatives have been discussed and questions answered. Patient agrees to proceed with procedure.
[2024-09-23] MEDS: ceFAZolin 2 GM/D5W 50 ML 2 GM/50 ML BAG IVPB (07:35)
[2024-09-23] MEDS: BUPIVACAINE/EPINEPHRINE 0.5% 10 ML VIAL 30 ML INFILTRATE (08:50)
[2024-09-23 11:10] LABS: Glucose Point of Care 174 mg/dl (65-105)
[2024-09-23 11:25] LABS: Glucose Point of Care 122 mg/dl (65-105)
--- NOTE | 2024-09-23 11:37 | P.OP_ITS ---
Procedure Note - Detailed Date of Procedure 09/23/24 Pre-op Diagnosis lumbar stenosis Post-op Diagnosis Same Procedure Performed L3-4 posterior lumbar interbody fusion Surgeon Robert Trevizo MD Product Development Actuary Maryjane Anesthesia General Indications The patient has severe lumbar degenerative disc disease with compression of the lateral recess on the right side as well as bilateral pars defects and a slight L3-4 grade 1 spondylolisthesis. He had failed conservative management. The risks and benefits the procedure were discussed with the patient and he wished to proceed. Findings Bilateral pars defects at L3-4 and severe lumbar spinal stenosis. Description of Procedure The patient was brought into the operating room and turned over to Anesthesia for intubation and placement of all lines. Once this was complete the patient was positioned prone on the open Ted frame. All bony prominences were padded. The patient's back was then shaved. I then brought in the C-arm to localize the L3-4 level. Initially I had significant difficulty identifying the L3-4 level as the C-arm was very very xomed and was only able to see several vertebral bodies such as the 4th 5th and sacrum on the computer screen. Her discussion with the x-ray staking technician this was the best quality C-arm we had available. We were able to adjust the bed after several times to identify the L3-4 interspace with visibility of the sacrum. At this point I felt comfortable proceeding with surgery. I marked the patient at the L3-4 level as identified on the preoperative x-ray. I then sterilely prepped and draped the patient in the usual sterile fashion. Final time-out was performed local anesthetic was injected to the incision. I then made a linear incision along my planned incision down to the fascia. He mostasis was obtained retractors were placed. I then opened the fascia bilaterally at L3, L4 and exposed the transverse processes bilaterally. Once all the tissue was dissected off of the facet joints I was able to bring in the C-arm and again localized the L3-4 level with 2 metal instruments over the transverse processes confirming I was in fact at the L3 and L4 levels. At this point I moved on to placement pedicle screws. I made sure to clear all soft tissue off of the pars, transverse process and facet joint at L4. Then removed a small piece of the facet joint and use Cell to identify the pedicle. I then placed a pedicle finer and confirmed with x-ray I was in the correct trajectory. The pedicle finer was then tunneled to 50 mm. This was confirmed to be in good position on fluoroscopy. I then used a ball-tip probe to confirm no breaches. I then used a tap to create a tract for the pedicle screw. I then placed a 6.5 x 50 mm screw at L4 on the patient's left side. I then repeated this process at L4 on the right side and moved the C-arm up so that I could place the screw at 1 level above at the level of L3 using the same technique. There were no difficulties with placement of the screws. A 6.5 x 50 screw was placed at all levels. Once the screws were placed I then confirmed with fluoroscopy using a upgoing curette to identify was underneath the correct lamina. Furthermore this was corroborated by the existence of bilateral pars defects at the L3-4 level. I then used a variety of rongeurs Kerrisons to remove the lamina and perform a full Rudolph laminectomy at L3. The entirety of the pars as trans truck transected of soft tissue as there was already a pre-existing fracture here the additional lamina and facet joint was removed. At this point all bone was saved for later use during the case. At this point I used a upgoing curette to identify the foramen at L3-4 bilaterally and used Kerrison punch rongeurs to additional bone and soft tissue to the level of the pedicle of L3, L4 and free the neural foramen of any compression. Given his symptoms were more on the right side I decided to place the cage right side. I then moved onto the posterior lumbar interbody fusion portion of the case nerve root retractor was used to retract the thecal sac and held back by my industrial hire sales assistant. I then used 11 blade to enter the disc space. Neural skip he was brought in to confirm I was able to enter the disc space with the disc space finer. At this point I removed the disc using a series of Mihai. I then used a 11 mm trial once I was completing shaving. This was inserted under fluoroscopic guidance and confirmed to be in proper position. Once this was completed we opened the CoreLink spacer. This was then stuffed with bone. Simultaneously I was placing several bone chips into the disc space which was placed over to the contralateral side. I then placed the implant again under fluoroscopic guidance this was confirmed to be in proper position. I then removed the pharmacy specialist irrigated the wound and proceeded towards the arthrodesis portion of the case. I decorticated all 4 transverse processes and placed bone in between the transverse processes to completing arthrodesis. Following this I then placed a aldo in between the tulips of the pedicle screws. This was then secured with set screws. On the side that I had placed the implant I did compress the set screws so that there was contact between the endplates and the implant. All 4 screws were final tightened. At this point I took final x-rays lateral and AP to confirm proper placement of implants. At this point I placed a subcutaneous drain and obtained hemostasis. The wound was then closed in layers with 0 Vicryl in the fascia 2-0 Vicryl and 3-0 Vicryl in the subcutaneous layer. The wound was then dressed with Steri-Strips. The patient was then turned over to Anesthesia for extubation. Estimated blood loss 250 urine output 250 fluids 1300 mL. There were no complications during the surgery. Estimated Blood Loss 250 IV Fluids 1,300 Urine Output 250 Condition Stable Disposition PACU
[2024-09-23] MEDS: fentaNYL CITRATE INJ (*CRX) 100 MCG/2 ML VIAL 25 MCG IV PUSH ×8 (11:50→12:38)
[2024-09-23] MEDS: ONDANSETRON INJ 4 MG/2 ML VIAL IV PUSH (12:00)
[2024-09-23] MEDS: diazePAM INJ (*CRX) 10 MG/2 ML SYRINGE 2 MG IV PUSH (13:02)
[2024-09-23] MEDS: HYDROmorphone HCL INJ (*CRX) 1 MG/ML SYR 0.5 MG IV PUSH (14:50)
[2024-09-23] MEDS: ceFAZolin 1 GM/NS 50 ML 1 GM/50 ML BAG IVPB ×2 (15:45→23:32)
[2024-09-23 17:52] LABS: Glucose Point of Care 105 mg/dl (65-105)
[2024-09-23] MEDS: HYDROcodone/acetaminophen (*CRX) 10-325 MG TABLET 1 TAB PO ×2 (18:23→21:52)
[2024-09-23] MEDS: INSULIN GLARGINE (*BKC) 100 UNITS/ML 6 UNITS SUB-Q (18:24)
--- NOTE | 2024-09-23 18:32 | ADMGEN ---
This patient, Cain Blount, was admitted to 3 [facility] Surg Room 301-01. Patient/family oriented to hospital policies and general routines including ID bracelet, bed and alarms, visiting hours, pain management, procedures, bathroom and other care routines, personal items, smoking policy, room service/diet, and visiting hours. Information on how to activate the Rapid Response Team has been discussed. Patient/Family are encouraged to report perceived risks to care and to ask questions if they do not understand what they are told or what they should do.
[2024-09-23 20:12] LABS: Glucose Point of Care 188 mg/dl (65-105)
[2024-09-23] MEDS: DOCUSATE SODIUM 100 MG CAPSULE PO (20:55)
[2024-09-23] MEDS: CYCLOBENZAPRINE HCL 10 MG TABLET PO (20:55)
[2024-09-24 03:23] VITALS: BP 115/56; PULSE 89; RESP 16; TEMP 36.6; O2SAT 98
[2024-09-24 07:49] LABS: Glucose Point of Care 126 mg/dl (65-105)
[2024-09-24] MEDS: ceFAZolin 1 GM/NS 50 ML 1 GM/50 ML BAG IVPB ×2 (08:01→14:24)
[2024-09-24] MEDS: HYDROcodone/acetaminophen (*CRX) 10-325 MG TABLET 1 TAB PO (08:04)
[2024-09-24 08:06] VITALS: BP 113/63; PULSE 82; RESP 18; TEMP 36.9; O2SAT 100
[2024-09-24] MEDS: DULoxetine HCL 60 MG CAPSULE.DR PO (08:06)
[2024-09-24] MEDS: DOCUSATE SODIUM 100 MG CAPSULE PO (08:06)
[2024-09-24 12:12] VITALS: BP 119/65; PULSE 85; RESP 18; TEMP 37.2; O2SAT 100
[2024-09-24 12:30] LABS: Glucose Point of Care 196 mg/dl (65-105)
--- NOTE | 2024-09-24 13:01 | WPDNEUROSGPN ---
Progress Note: A&P Assessment and Plan (1) Spondylolisthesis, lumbar region: Code(s): M43.16 - Spondylolisthesis, lumbar region Status: Acute (2) Status post lumbar spinal arthrodesis: Code(s): Z98.1 - Arthrodesis status Status: Acute Plan -Remove hemovac drain today -Wound care/activity precautions reviewed at bedside -Discharge home today -Follow up with Dr. Trevizo as scheduled in a couple weeks Subjective Date/time seen: 09/24/24 13:01 Interval history: Doing well with expected incisional pain which is adequately controlled with medication. No leg pain/paresthesias. He has been ambulating to restroom and is voiding independently. Tolerating oral intake. He is interested in going home today Review of Systems Review of Systems: All systems reviewed & are unremarkable except as noted in HPI and below Exam Narrative: HV 70cc since midnight AOx4 Small amount of sanguinous drainage on steristrips Moving legs with good strength Sensation intact to light touch Objective Data Vital Signs Vital Signs: Vital Signs - 24 hr 09/23/24 13:10 09/23/24 13:45 09/23/24 14:00 Temperature 96.6 F L 97.7 F Pulse Rate 93 90 89 Respiratory Rate 14 16 16 Blood Pressure 125/87 123/76 120/79 Pulse Oximetry 99 99 Oxygen Delivery Room Air 09/23/24 14:30 09/23/24 15:30 09/23/24 16:00 Temperature 97.3 F L 97.0 F L Pulse Rate 83 84 Respiratory Rate 16 16 Blood Pressure 118/71 131/66 Pulse Oximetry 99 99 Oxygen Delivery Room Air 09/23/24 20:12 09/23/24 23:32 09/24/24 03:23 Temperature 98.3 F 97.1 F L 97.8 F Pulse Rate 73 89 89 Respiratory Rate 20 14 16 Blood Pressure 113/64 112/59 L 115/56 L Pulse Oximetry 97 98 98 Oxygen Delivery 09/24/24 08:00 09/24/24 08:06 Temperature 98.5 F Pulse Rate 82 Respiratory Rate 18 Blood Pressure 113/63 Pulse Oximetry 100 Oxygen Delivery Room Air Intake/Output Intake/Output: Intake & Output 09/21/24 09/22/24 09/23/24 09/24/24 23:59 23:59 23:59 23:59 Intake Total 2900 170 Output Total 440 9470 Balance 2460 -2300 Meds/Results Medications: Active Medications Generic Name Dose Route Start Last Admin Trade Name Freq PRN Reason Stop Dose Admin Hydrocodone Bitart/Acetaminophen 1 tab 09/23/24 13:12 Hydrocodone/Acetaminophen (*Crx) 5-325 Mg Tablet PO Q4H PRN Mild Pain (1-3) Hydrocodone Bitart/Acetaminophen 1 tab 09/23/24 13:12 09/24/24 08:04 Hydrocodone/Acetaminophen (*Crx) 10-325 Mg Tablet PO 1 tab Q4H PRN Administration Moderate Pain (4-6) Al Hydrox/Mg Hydrox/Simethicone 20 ml 09/23/24 13:12 Mag Hydrox/Al Hydrox/Simeth 30 Ml Udc PO Q4H PRN Indigestion/Heartburn Albuterol 2 puff 09/23/24 13:12 Albuterol Sulfate (*Sp) Aerosol 1 Puff INHALATION Q4-6H PRN Shortness Of Breath Or Wheezing Bisacodyl 10 mg 09/23/24 13:12 Bisacodyl 10 Mg Suppository RECTAL DAILY PRN Constipation Cyclobenzaprine HCl 10 mg 09/23/24 13:12 09/23/24 20:55 Cyclobenzaprine Hcl 10 Mg Tablet PO 10 mg TID PRN Administration Muscle Spasms Dextrose 12.5 gm 09/23/24 13:12 Dextrose 50% 25 Gm/50 Ml Syringe IV PUSH PRN PRN Hypoglycemia Protocol Docusate Sodium 100 mg 09/23/24 21:00 09/24/24 08:06 Docusate Sodium 100 Mg Capsule PO 100 mg Q12HR CHRIS Administration Duloxetine HCl 60 mg 09/24/24 09:00 09/24/24 08:06 Duloxetine Hcl 60 Mg Capsule.Dr PO 60 mg DAILY CHRIS Administration Ergocalciferol 50,000 units 09/25/24 09:00 Ergocalciferol 50,000 Units Capsule PO Dunbar@0900 CHRIS Glucagon 1 mg 09/23/24 13:12 Glucagon For Inj 1 Mg Vial IM PRN PRN Hypoglycemia Protocol Glucose 15 gm 09/23/24 13:12 Glucose Oral Gel 15 Gm Of Glucse In 37.5 Gm Tube PO PRN PRN Hypoglycemia Protocol Hydromorphone HCl 0.5 mg 09/23/24 13:12 09/23/24 14:50 Hydromorphone Hcl Inj (*Crx) 1 Mg/Ml Syr IV PUSH 0.5 mg Q2H PRN Administration Pain Rated 7-10 Cefazolin Sodium 1 gm in 50 mls @ 100 mls/hr 09/23/24 15:00 09/24/24 08:01 Ancef 1 Gm/Ns 50 Ml IVPB 100 mls/hr Q8H CHRIS Administration Dextrose 1,000 mls @ 100 mls/hr 09/23/24 13:12 Dextrose 5% 1,000 Ml IVPB PRN PRN Hypoglycemia Protocol Insulin Aspart 0 units 09/23/24 17:00 09/24/24 08:06 Insulin Aspart (*Bkc) 100 Units/Ml SUB-Q Not Given TIDWM [facility] Protocol Insulin Glargine 6 units 09/23/24 18:00 09/23/24 18:24 Insulin Glargine (*Bkc) 100 Units/Ml 0.2 units/kg (19 units) 6 units SUB-Q Administration DAILY@1800 [facility] Miscellaneous Information 1 each 09/23/24 00:01 Ergocalciferol 1,000 Untis Not Stocked. Clarify As Patient Currently On 50,000 Units Week XX 10/23/24 00:00 CLARIFY [facility] Non-Formulary Medication 1,000 unit 09/24/24 09:00 Ergocalciferol (Vitamin D2) PO 10/24/24 08:59 DAILY [facility] Ondansetron HCl 4 mg 09/23/24 13:12 Ondansetron Inj 4 Mg/2 Ml Vial IV PUSH Q8H PRN Nausea And Vomiting Senna/Docusate Sodium 1 tab 09/23/24 13:12 Senna/Docusate Sodium Tablet PO HS PRN Constipation Radiology Results: ITS Impressions Fluoroscopy 09/23/24 11:53 IMPRESSION: 1. Fluoroscopy utilized during L3 laminectomy and combined instrumented L3-L4 anterior and posterior spinal fusion. See procedure note for further detail. Labs Labs: Laboratory Results - last 24 hr 09/23/24 09/23/24 09/24/24 17:49 19:53 07:43 POC Capillary Glucose 105 188 H 126 H 09/24/24 11:28 POC Capillary Glucose 196 H
--- OUTSIDE RECORDS SUMMARY | 2024-09-29 04:37 | XMS_ITS | Patient Health Summary ---
Author Organization [facility] Address [address] [place] [address] Care Team Providers Care Payroll Clerk Name Role Phone Unavailable Primary Care Provider Unavailabl e Note from [facility],non-owned Affiliates and Associated Physician Practices is amultiple site organization consisting of ambulatory clinics and hospital sitesin [place], [place], [place] and [place]. This disclosure is being madepursuant to the Care Everywhere program and may not contain all information available regarding this patient. Last updated 18.[facility] Allergies No known active allergies Medications Be aware that medications may not be up to date on this document. Always verify current medications with the patient. No known medications Active Problems No known active problems Immunizations * INFLUENZA VACCINE, QUADR. (FLUZONE; FLULAVAL; FLUARIX; AFLURIA QUADRIVALENT; 6MO+), 0.5 ML (IIV4)(Given 06/23/2018) Social History Tobacco Use Types Packs/Day Years Used Date Smoking Tobacco: Never Assessed Sex and Gender Information Value Date Recorded Sex Assigned at Not on file Gender Identity Not on file Sexual Orientation Not on file
--- OUTSIDE RECORDS SUMMARY | 2024-09-29 04:37 | XMS_ITS | Clinical Summary ---
Author Organization [facility] Address [address] [place] [address] Care Team Providers Care Brushing Machine Operator Name Role Phone Unavailable Primary Care Provider Unavailabl e Source Comments [facility],non-owned Affiliates and Associated Physician Practices is amultiple site organization consisting of ambulatory clinics and hospital sitesin [place], [place], [place] and [place]. This disclosure is being madepursuant to the Care Everywhere program and may not contain all information available regarding this patient. Last updated 18.[facility] Allergies No known active allergies Medications Be aware that medications may not be up to date on this document. Always verify current medications with the patient. No known medications Active Problems No known active problems Immunizations Name Administration Dates Next Due INFLUENZA VACCINE, QUADR. (F LUZONE; FLULAVAL; FLUARIX; AFLURIA QUADRIVALENT; 6MO+), 0.5 ML (IIV4) 06/23/2018 Social History Tobacco Use Types Packs/Day Years Used Date Smoking Tobacco: Never Assessed Sex and Gender Information Value Date Recorded Sex Assigned at Not on file Gender Identity Not on file Sexual Orientation Not on file Plan of Treatment Health Maintenance Due Date Last Done Comments HIV SCREENING 2002 HEPATITIS C SCREENING 06/09/2005 DTAP/TDAP/TD VACCINES (1 - Tdap) 2006 HEPATITIS B VACCINE (1 of 3 - 19+ 3-dose series) 2006 COVID-19 VACCINE ( - 2023-2 5 season) 2024 INFLUENZA VACCINE (#1) 2024 06/23/2018 DEPRESSION SCREENING 09/07/2024 ZOSTER VACCINE (1 of 2) 2037 HIB VACCINE Aged Out No longer eligi ble based on patient's age to complete this topic HPV VACCINE Aged Out No longer eligi ble based on patient's age to complete this topic MENINGOCOCCAL (Group B) VACCINE Aged Out No longer eligible based on patient's age to complete this topic MENINGOCOCCAL VACCINE Aged Out No ryan alexa eligible based on patient's age to complete this topic PNEUMOCOCCAL VACCINE Aged Out No long er eligible based on patient's age to complete this topic
--- OUTSIDE RECORDS SUMMARY | 2024-09-29 04:37 | XMS_ITS | Referral Summary ---
Author Organization [facility] Address [address] [place] [address] Care Team Providers Care Novelty Twister Operator Name Role Phone Unavailable Primary Care Provider Unavailabl e Source Comments [facility] [employer],non-owned Affiliates and Associated Physician Practices is amultiple site organization consisting of ambulatory clinics and hospital sitesin [place], [place], [place] and [place]. This disclosure is being madepursuant to the Care Everywhere program and may not contain all information available regarding this patient. Last updated 18.[facility] [employer] Allergies No known active allergies Medications Be [...] Orientation Not on file Plan of Treatment Not on file
--- OUTSIDE RECORDS SUMMARY | 2024-09-29 04:38 | XMS_ITS | Referral Summary ---
Author Organization [facility] Address [address] [place] [address] Care Team Providers Care Exceptional Children Teacher Assistant Name Role Phone Demetris Chaudhry DO Primary Care Provider [phone] Leanne Brown MD Unavailable Tommy Devine DPM, Gabriel Unavailable Angeles Dee MD Unavailable Manjula Peguero Unavailable Allergies Active Allergy Reactions Criticality Noted Date Comments Aloe Vera Blisters High 05/06/2022 Sumatriptan Anaphylaxis High 07/07/2023 Medications OneTouch Delica Plus Lancet 30 gauge misc 022 Active valACYclovir (VALTREX) 1 gram tablet Take 1 tablet (1,000 mg total) by mouth 2 (two) times a day as needed Active albuterol HFA (PROVENTIL HFA,VENTOLIN HFA,PROAIR HFA) 90 mcg/actuation inhaler Inhale 2 puffs every 6 (six) hours as needed for wheezing Active cholecalciferol (VITAMIN D-3) 2000 unit capsule 1 daily Active cyclobenzaprine (FLEXERIL) 10 mg tablet Take 1 tablet (10 mg total) by mouth as needed for muscle spasms Active ubrogepant (Ubrelvy) 50 mg tablet Take 1 tablet (50 mg total) by mouth May repeat dose once in 2 hours if no relief. Do not exceed 2 doses in 24 hours. Active fluticasone propionate (CUTIVATE) 0.05 % cream Apply topically 2 (two) times a day Active UNABLE TO FIND as needed ketamine 6%, gabapentin 6 %, cyclobenzaprine 2%, diclofenac 3%, pentoxifylline 3%, iboprofen 1%, Lidocaine 5%, amitriptyline 2% Active tiZANidine (ZANAFLEX) 2 mg tabletIndication s:Muscle Spasm Take 1 tablet (2 mg total) by mouth every 6 (six) hours as needed for muscle spasms 30 tablet 1 023 Active glucagon (BAQSIMI) 3 mg/actuation spray,non-aeroso l Use one actuation into a single nostril. If no response, may repeat in 15 minutes using a new intranasal device. 2 each Active meloxicam (MOBIC) 15 mg tabletIndication s:Osteoarthritis Take 1 tablet (15 mg total) by mouth daily 30 tablet 1 024 2024 Active ergocalciferol (VITAMIN D) 50,000 unit capsuleIndicatio ns:Vitamin D deficiency Take one capsule by mouth Weekly [address] (CYMBALTA) 60 mg capsule Take 1 capsule (60 mg total) by mouth daily Active FreeStyle Nnamdi 3 Sensor deviceIndication s:Type 2 diabetes mellitus with hyperglycemia, without long-term current use of insulin (HCC),Positive VITALY antibody Use to check blood sugar 4 times a day and as needed. Replace sensor every 14 days. 2 each Active blood glucose diagnostic (glucose blood) stripIndications :Type 2 diabetes mellitus with hyperglycemia, without long-term current use of insulin (HCC) Check blood sugar four times a day or as directed 200 each Active pioglitazone (ACTOS) 45 mg tabletIndication s:type 2 diabetes mellitus Take 1 tablet (45 mg total) by mouth daily 90 tablet 1 024 2024 Active baclofen (LIORESAL) 10 mg tablet Active gabapentin (NEURONTIN) 100 mg capsule Active gabapentin (NEURONTIN) 300 mg capsule Active traMADoL (ULTRAM) 50 mg tablet 024 Active insulin glargine 100 unit/mL (3 mL) pen for injectionIndicat ions:Type 2 diabetes mellitus with hyperglycemia, without long-term current use of insulin ([facility]),Positive VITALY antibody Inject 5 Units under the skin every morning 024 Active blood-glucose sensor device Use as directed to check BG. 2 each 11 024 Active ondansetron ODT (ZOFRAN-ODT) 4 mg disintegrating tabletIndication s:Type 2 diabetes mellitus with hyperglycemia, with long-term current use of insulin ([facility]) Take 1 tablet (4 mg total) by mouth every 8 (eight) hours as needed for nausea or vomiting 20 tablet 3 024 Active pen needle, diabetic 32 gauge x 5/32 needleIndication s:Type 2 diabetes mellitus with hyperglycemia, with long-term current use of insulin ([facility]) Use pen needles with insulin injection up to 4 times a day. 400 each 3 024 Active metFORMIN (GLUCOPHAGE) 1,000 mg tabletIndication s:Type 2 diabetes mellitus with hyperglycemia, without long-term current use of insulin ([facility]) TAKE 1 TABLET(1000 MG) BY MOUTH TWICE DAILY WITH MEALS 180 tablet 1 024 Active Jardiance 25 mg tabletIndication s:Type 2 diabetes mellitus with hyperglycemia, without long-term current use of insulin ([facility]) TAKE 1 TABLET(25 MG) BY MOUTH DAILY 90 tablet 1 024 Active insulin lispro (HumaLOG, ADMELOG) 100 unit/mL pen for injectionIndicat ions:Type 2 diabetes mellitus with hyperglycemia, unspecified whether director long term care insulin use ([facility]) INJECT 0-10 UNITS BEFORE MEALS BASED OFF RIGHT EYE SLIDING SCALE. MAX DAILY DOSE 30 UNITS 15 mL 3 025 Active Ozempic 1 mg/dose (4 mg/3 mL) pen injector injectionIndicat ions:Type 2 diabetes mellitus with hyperglycemia, with long-term current use of insulin ([facility]) INJECT 1 MG UNDER THE SKIN ONCE WEEKLY 3 mL 3 025 Active insulin lispro (HumaLOG) 100 unit/mL pen for injectionIndicat ions:Type 2 diabetes mellitus with hyperglycemia, unspecified whether director long term care insulin use ([facility]) Inject 0-10 units before meals based off of sliding scale. Max daily dose: 30 units. 15 mL 3 024 2024 Discontinued semaglutide (OZEMPIC) 1 mg/dose (4 mg/3 mL) pen injector injectionIndicat ions:Type 2 diabetes mellitus with hyperglycemia, with long-term current use of insulin (HCC) Inject 1 mg under the skin every 7 days 3 mL 3 024 2024 Discontinued Active Problems Problem Noted Date Diagnosed Date Positive VITALY antibody 01/05/2024 Overview (04/05/2024): Images from the original note were not included. Assessment & Plan (06/21/2024 3:13 PM CDT): Previously diagnosed and treated as Type 2. Positive antibodies suggest he is more Type 1/KRISTIAN. Will continue to monitor c-peptide every 6-12 months to assess pancreatic beta cell function. Assessment & Plan (04/08/2024 9:05 PM CDT): Increased potential to progress to type 1 DM Assessment & Plan (01/05/2024 3:53 PM CDT): - October 2023 +VITALY-65 and +islet antibodies - C-peptide was 1.5 with a glucose of 230 mg/dL - Briefly counseled on potential diagnosis of Type 1 diabetes. - Will schedule him a full one-hour of education time with CDEs - He would be a good candidate for an insulin pump in the future. Hypercalcemia 01/05/2024 Assessment & Plan (01/19/2024 2:40 PM CDT): - Calcium 10.4 on most recent lab work 10/21/2023 - Renal function sent to [facility] Assessment & Plan (01/05/2024 3:56 PM CDT): - Calcium 10.4 on most recent lab work 10/21/2023 - Will recheck at next visit Elevated BP without diagnosis of hypertension Assessment & Plan (06/21/2024 3:13 PM CDT): At goal today Assessment & Plan (01/19/2024 2:40 PM CDT): - Normotensive today - Will continue to monitor Assessment & Plan (01/05/2024 3:56 PM CDT): - Slightly elevated today - Will continue to monitor - If continually elevated, consider adding another medication to further reduce blood pressure to goal <130/80 mmHg Family history of bone cancer 09/03/2023 Vitamin D deficiency 08/25/2022 Assessment & Plan (06/21/2024 3:14 PM CDT): - Last Vitamin D 37.1 (10/2023), replete - Continue taking 50,000 units weekly Assessment & Plan (04/08/2024 9:03 PM CDT): Continue long-term supplement Assessment & Plan (01/05/2024 3:57 PM CDT): - Last Vitamin D 37.1 (10/2023), WNL - Continue taking 50,000 units weekly Assessment & Plan (10/07/2023 8:18 PM REGULATOR TESTER): Continue long-term supplement Assessment & Plan (07/07/2023 10:53 AM CDT): -continue same vitamin-D supplementation of 50,000 international units weekly -Will repeat level Assessment & Plan (03/10/2023 8:47 PM CDT): Continue long-term supplement Assessment & Plan (12/03/2022 7:51 PM CDT): Continue penitentiary supplements. 08/2022- Vitamin D 14 Assessment & Plan (08/26/2022 7:14 AM REGULATOR TESTER): Vitamin D level 14.6 on 08/12/22. Needs to restart supplements: - 50,000 units weekly - 2,000 units daily Polyarthralgia 05/06/2022 Rheumatoid factor positive 05/06/2022 Assessment & Plan (03/10/2023 8:46 PM CDT): With polyarthralgias. Needs rheum evaluation Backache 05/06/2022 Has immunity to COVID-19 virus 05/06/2022 Overview (05/06/2022): Pfizer vaccine x 3 Assessment & Plan (08/25/2022 10:16 AM REGULATOR TESTER): Fully vaccinated, eligible for booster. Assessment & Plan (05/06/2022 1:34 PM CDT): Fully vaccinated, eligible for booster. Elevated transaminase level 05/06/2022 Assessment & Plan (03/10/2023 8:46 PM CDT): Needs optimal glycemic control Vitiligo 05/06/2022 Assessment & Plan (05/07/2022 11:09 AM CDT): Related to autoimmune disorder Autoimmune disease ([facility]) 05/06/2022 Overview (05/06/2022): Vitiligo and history of positive RA Assessment & Plan (04/08/2024 9:06 PM CDT): Vitiligo, history of positive rheumatoid factor. Positive VITALY-65 Ab. Needs ongoing surveillance Assessment & Plan (10/07/2023 8:17 PM REGULATOR TESTER): Vitiligo and history of positive rheumatoid factor. Needs ongoing surveillance Assessment & Plan (07/07/2023 10:53 AM CDT): -he has + RF -Has been referred for rheumatology evaluation -Will also check celiac screen Assessment & Plan (03/10/2023 8:46 PM CDT): Vitiligo and history of positive rheumatoid factor. Needs ongoing surveillance Assessment & Plan (08/26/2022 12:54 AM REGULATOR TESTER): Vitiligo and history of positive rheumatoid factor. Continue with surveillance. Assessment & Plan (05/07/2022 8:43 AM CDT): Vitiligo and history of positive rheumatoid factor. Needs ongoing surveillance Type 2 diabetes mellitus with hyperglycemia ([facility]) 05/05/2022 Overview (04/05/2024): Images from the original note were not included. 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 Currently being managed transitionly as newly diagnosed Type 1/KRISTIAN. Controlled. Lab Results Component Value Date HGBA1C 6.8 06/21/2024 Per [place] [employer], goal A1c is less 7% without significant hypoglycemia. - New Regimen: Metformin 1,000 mg BID Jardiance 25 mg daily Pioglitazone 45 mg daily Increase Ozempic 1 mg weekly Glargine 5 units once daily Loosen Humalog ICR 1:40 plus sliding scale three times daily - Continue management with FUJIAN HAIYUAN Nnamdi 3 CGM. - At next visit, potentially stop pioglitazone (Actos). - Advised bolusing 10-15 minutes before each meal. - Advised annual dilated eye exam - UTD. Due September 2024. - Advised checking blood glucose before driving - Discussed hypoglycemia risk, and treatment such as the rule of 15s and the use of glucagon - Annual labs are due in October 2024. Ordered today, including c-peptide. Advised to complete these before next follow up with Dr. Brown. - Update me on consistent glycemia excursions or if there is any hypoglycemia. - Advised and ensured that I am available via phone or [facility] if they have any concerns for hypo/hyperglycemia, medication refills, etc. Assessment & Plan (04/08/2024 9:04 PM CDT): Overall reasonably stable, but prone to evening hypoglycemia if he has a low carb meal, so he can change his dinnertime Humalog to prn. Will also change Lantus to the AM. Assessment & Plan (01/19/2024 2:39 PM CDT): Diabetes is uncomplicated, Type 1 vs. KRISTIAN. Uncontrolled, but per CGM data is improving. Lab Results Component Value Date HGBA1C 9.6 01/05/2024 Per [employer], goal A1c is less 7% without significant hypoglycemia. - Management Goal: reduce prandial hyperglycemia - Continue current regimen - Start Humalog 3 units for a small less carb lunch and 5 units for a larger, more carb loaded meal - Discussed use of Humalog sliding scale as needed throughout the day for random high blood sugars - Consider decreasing or stopping Jardiance for risk of euglycemic DKA. - Contnue FreeStyle Nnamdi 3. - Will closely monitor c-peptide and A1c - will get in March 2024 - Advised annual dilated eye exam - UTD. - Advised checking blood glucose before driving - Discussed hypoglycemia risk, and treatment such as the rule of 15s and the use of glucagon - Consider adding a statin for cardiovascular protection. - Consider adding a ACEi/ARB for renal protection (especially in setting of discontinuing Jardiance). - Annual labs are UTD - Update me on consistent glycemia excursions or if there is any hypoglycemia. - Advised and ensured that I am available via phone or [place] if they have any concerns for hypo/hyperglycemia, medication refills, etc. Assessment & Plan (01/05/2024 3:59 PM CDT): - Diabetes is uncomplicated, Type 1 vs. KRISTIAN. Uncontrolled. Lab Results Component Value Date HGBA1C 9.6 01/05/2024 Per [place] [employer], goal A1c is less 7% without significant hypoglycemia. - Management Goal: reduce fasting blood sugars - START glargine 5 units daily. Given written instructions to titrate by 1 unit every 2-3 days until his fasting blood sugars are consistently between 100-130 mg/dL. He demonstrated understanding and is agreeable. - Advised that he can stop Pioglitazone (Actos). - Continue Trulicity, Jardiance, Metformin and Humalog for now. Consider decreasing or stopping Jardiance for risk of euglycemic DKA. - START FreeStyle Nnamdi 3. - Will closely monitor c-peptide and A1c. - Advised annual dilated eye exam. - Advised checking blood glucose before driving - Discussed hypoglycemia risk, and treatment such as the rule of 15s and the use of glucagon - Consider adding a statin for cardiovascular protection. - Consider adding a ACEi/ARB for renal protection (especially in setting of discontinuing Jardiance). - Annual labs are UTD - Update me on consistent glycemia excursions or if there is any hypoglycemia. - Advised and ensured that I am available via phone or MyChart if they have any concerns for hypo/hyperglycemia, medication refills, etc. Assessment & Plan (10/07/2023 8:18 PM REGULATOR TESTER): Overall reasonably stable, but prone to evening hypoglycemia if he has a low carb meal, so he can change his dinnertime Humalog to prn. Needs labs as previously ordered. Assessment & Plan (07/07/2023 10:53 AM CDT): -Currently taking oral agents and Trulicity -A1C on 07/07/23 was 10.6% -Will resume using Nnamdi -Given his rise in glucose after supper, will add Humalog 3 units with his evening meal and follow with his response -Will continue other medications -Will order labs to evaluate for type 1 DM -Discussed diet and activity modifications. -Advised to call with any concerns/complaints regarding glucose readings -Eye exam is up to date Assessment & Plan (03/10/2023 8:48 PM CDT): Recent severe episode of dehydration and possible ketosis. Significant evening hyperglycemia and may need insulin at that time, but would optimize oral therapy first. He is understanding of the plan. Assessment & Plan (12/03/2022 7:59 PM CDT): Hemoglobin A1c increased to 9.5%, but FreeStyle Nnamdi report shows GMI 7.2%. Continue using FreeStyle Nnamdi for frequent monitoring and safety. He is tolerating Metformin XR 2,000mg, pioglitazone 30mg, Farxiga 10mg and Trulicity 3mg well and without side effects at this time. He would like to try switching back to metformin and Invokana. It seems that Jardiance is the preferred SGLT-2i, according to his insurance. He also plans to continue making diet and lifestyle changes to help better manage BG. Assessment & Plan (08/26/2022 12:52 AM REGULATOR TESTER): Fasting sugars above goal. - Increase pioglitazone from 15mg to 30mg daily. - Continue Trulicity 3mg weekly (refill), Farxiga 10mg daily, and metformin 1g BID - Patient will use Dexcom after this change and will send in sugar readings - Check to see if insurance will cover Invokana next year - Continue yearly follow up with eye doctor - patient to follow up with podiatry next month - Last labs earlier this month. Will defer labs today. - Return visit 3 months to see the FLOATING LABOR GANG SUPERVISOR/PA, 6 months to see me. Assessment & Plan (05/07/2022 8:43 AM CDT): Intelligent, motivated and will benefit from more advanced Education today. Also would benefit from adding low-dose pioglitazone Hyperkalemia Overview (05/07/2022): Normal adrenal function and now off lisinopril Assessment & Plan (05/07/2022 11:22 AM CDT): Likely related to diabetes, but currently off lisinopril and need to follow Immunizations Name Administration Dates Next Due Influenza, Quadrivalent, Adore l Culture-based MDCK, Preservative Free, Antibiotic Free, Intramuscular 06/17/2019 Influenza, Quadrivalent, Rec ombinant, Egg Free, Preservative Free, Intramuscular 06/21/2020 Influenza, Quadrivalent, Spl it, Preservative Free, Intramuscular 06/23/2018 Influenza, Trivalent, IM (MDV) 07/03/2021 Tdap 12/20/2018 Social History Tobacco Use Types Packs/Day Years Used Date Smoking Tobacco: Never Passive Smoke Exposure: Never Smokeless Tobacco: Never Sex and Gender Information Value Date Recorded Sex Assigned at Not on file Legal Sex Male 11:24 AM CDT Gender Identity Not on file Sexual Orientation Not on file Occupation Industry Job Start Date Job End Date [employer] Not on file Not on file Not o n file Last Filed Vital Signs Vital Sign Reading Time Taken Comments Blood Pressure 119/75 06/21/2024 1:16 PM CDT Pulse 95 06/21/2024 1:16 PM CDT Temperature 36.9 ??C (98.4 ??F) 06/21/2024 1:16 PM CD T Respiratory Rate - - Oxygen Saturation 99% 09/01/2023 10:52 AM REGULATOR TESTER Inhaled Oxygen Concentration - - Weight 99.1 kg (218 lb 6.4 oz) 06/21/2024 1:16 P M CDT Height 191.8 cm (6' 3.5 ) 06/21/2024 1:16 PM CDT Body Mass Index 26.94 06/21/2024 1:16 PM CDT Plan of Treatment Not on file Procedures Procedure Name Priority Date/Time Associated Diagnosis Comments POCT HEMOGLOBIN A1C Routine 06/21/2024 1 :20 PM CDT Type 2 diabetes mellitus with hyperglycemia, with long-term current use of insulin ([facility]) [E11.65, Z79.4] RENAL FUNCTION PANEL Routine 01/25/2024 10:45 AM CDT Hypercalcemia LIPID PANEL Routine 10/21/2023 4:20 PM REGULATOR TESTER Type 2 diabetes mellitus with hyperglycemia, without long-term current use of insulin ([facility]) ([facility]) ALBUMIN CREATININE RATIO, URINE Routine 10/21/2023 4:20 PM REGULATOR TESTER Type 2 diabetes mellitus with hyperglycemia, without long-term current use of insulin ([facility]) ([facility]) THYROID FUNCTION CASCADE Routine 10/21/2023 4:20 PM REGULATOR TESTER Type 2 diabetes mellitus with hyperglycemia, without long-term current use of insulin ([facility]) ([facility]) from Last 3 Months or Most Recently Relevant to Health Maintenance Results * POCT hemoglobin A1c (06/21/2024 1:20 PM CDT) Hemoglobin A1C, POC 6.8 4.0 - 5.6 % Blood 06/21/2024 1:20 PM CDT Manjula CARRION POINT OF CARE TEST ORDERA BLES Final Result * (ABNORMAL) Renal function panel (01/25/2024 10:45 AM CDT) Glucose 113(H) 70 - 99 mg/dL [facility] - 01 BUN 21(H) 6 - 20 mg/dL [facility] - 01 Creatinine, Serum 0.97 0.76 - 1.27 mg/dL [facility] - 01 eGFR 104 >59 mL/min/1.7 3 [facility] - 01 BUN/creat ratio 22(H) 9 - 20 [facility] - 01 Sodium 137 134 - 144 mmol/L [facility] - 01 Potassium, sr 5.1 3.5 - 5.2 mmol/L [facility] - 01 Chloride 100 96 - 106 mmol/L [facility] - 01 CO2 23 20 - 29 mmol/L [facility] - 01 Calcium 9.9 8.7 - 10.2 mg/dL [facility] - 01 Phosphorus, sr 3.4 2.8 - 4.1 mg/dL [facility] - 01 Albumin 4.7 4.1 - 5.1 g/dL [facility] - 01 Blood 01/25/2024 10:4 5 AM CDT 01/25/2024 Narrative [facility] - 01/26/2024 4:08 AM CDT Performed at: ??01 - [facility] [address] ??[id number] Co Supervisor [employer]ounds [employer] Landscape: Kleber Shirley PhD, Phone: ??[phone] Manjula CARRION LAB BLOOD ORDERABLES Naa l Result [facility] - 01 * Thyroid Function False Pass (10/21/2023 4:20 PM REGULATOR TESTER) TSH 0.827 0.450 - 4.500 uIU/mL [facility] - 01 Comment: No apparent thyroid disorder. Additional testing not indicated. In rare instances, Secondary Hypothyroidism as well as Subclinical Hypothyroidism have been reported in some patients with normal TSH values. Blood 10/21/2023 4:20 PM REGULATOR TESTER 10/21/2023 Narrative [facility] - 10/22/2023 10:11 AM REGULATOR TESTER Performed at: ??01 - [facility] ??[id number] Co Supervisor [employer]scape: Kleber Shirley PhD, Phone: ??[phone] us Sandra Meyerradha Aviles FLOATING LABOR GANG SUPERVISOR LAB BLOOD ORDERABLES Final Result Performing Organization Address [facility] de Phone Number [facility] - 01 * Albumin Creatinine Ratio, Urine (10/21/2023 4:20 PM REGULATOR TESTER) Creatinine ur 32.3 Not Estab. mg/dL [facility] - 01 Microalbumin, ur 3.1 Not Estab. ug/mL [facility] - 01 Microalbumin/cre at ratio 10 0 - 29 mg/g creat [facility] - 01 Comment: ? Normal: ?0 - ??29 ? Moderately increased: 30 - 300 ? Severely increased: ? >300 Urine 10/21/2023 4:20 PM REGULATOR TESTER 10/21/2023 Narrative [facility] - 10/22/2023 10:11 AM REGULATOR TESTER Performed at: ??01 - [facility] ??[id number] Co Supervisor [employer] Landscape: Kleber Shirley PhD, Phone: ??[phone] us Sandra Aviles FLOATING LABOR GANG SUPERVISOR LAB URINE ORDERABLES Final Result Performing Organization Address [facility] de Phone Number [facility] - 01 * Lipid panel (10/21/2023 4:20 PM REGULATOR TESTER) Cholesterol 184 100 - 199 mg/dL [facility] - 01 Triglycerides 138 0 - 149 mg/dL [facility] - 01 HDL Cholesterol 81 >39 mg/dL [facility] - 01 VLDL 23 5 - 40 mg/dL [facility] - 01 LDL, calculated 80 0 - 99 mg/dL [facility] - 01 Blood 10/21/2023 4:20 PM REGULATOR TESTER 10/21/2023 Narrative [facility] - 10/22/2023 10:11 AM REGULATOR TESTER Performed at: ??01 - [facility] [address] ??[id number] Co Supervisor [employer] Landscape: Kleber Shirley PhD, Phone: ??[phone] us Sandra Meyerradha Aviles FLOATING LABOR GANG SUPERVISOR LAB BLOOD ORDERABLES Final Result [facility] - 01 from Last 3 Months or Most Recently Relevant to Health Maintenance Insurance [facility] CHO[employer] [facility] HMO/PPO Address: [place] [address] Care Teams Exceptional Children Teacher Assistant Relationship Specialty Start Date End Date Demetris Chaudhry DO PCP - General Internal Medicine 02/19/22 Leanne Brown MD Referring Physician Endocrinology Diabetes & Metabolism 05/06/22 Harvinder Sanders Jr., DPDakota Referring Physician Podiatry 05/07/22 Angeles Dee MD [address] [facility] [place] [address] Consulting Physician Bone Health 10/07/23 Manjula Peguero PA [address] [facility], [place] [address] [place] [id number] Physician Bar Back Physician Bar Back 04/04/24
--- OUTSIDE RECORDS SUMMARY | 2024-09-29 04:38 | XMS_ITS | Clinical Summary ---
Author Organization [facility] Address [address] [place] [address] Care Team Providers Care Facilities Maintenance Assistant Name Role Phone Demetris Chaudhry DO Primary Care Provider [phone] Leanne Brown MD Unavailable Tommy Devine DPM, Gabriel Unavailable Angeles Dee MD Unavailable [phone] Manjula Peguero Unavailable Allergies Active Allergy Reactions [...] hyperglycemia, without long-term current use of insulin ([facility]),Positive VITALY antibody Inject 5 Units under the skin every morning 024 Active blood-glucose sensor device Use as directed to check BG. 2 each 11 024 Active ondansetron ODT (ZOFRAN-ODT) 4 mg disintegrating tabletIndication s:Type 2 diabetes mellitus with hyperglycemia, with long-term current use of insulin ([facility]) Take 1 tablet (4 mg total) by mouth every 8 (eight) hours as needed for nausea or vomiting 20 tablet 3 024 Active pen needle, diabetic 32 gauge x 5/32 needleIndication s:Type 2 diabetes mellitus with hyperglycemia, with long-term current use of insulin ([facility]) Use pen needles with insulin injection up to 4 times a day. 400 each 3 024 Active metFORMIN (GLUCOPHAGE) 1,000 mg tabletIndication s:Type 2 diabetes mellitus with hyperglycemia, without long-term current use of insulin ([facility]) TAKE 1 TABLET(1000 MG) BY MOUTH TWICE DAILY WITH MEALS 180 tablet 1 024 Active Jardiance 25 mg tabletIndication s:Type 2 diabetes mellitus with hyperglycemia, without long-term current use of insulin ([facility]) TAKE 1 TABLET(25 MG) BY MOUTH DAILY 90 tablet 1 024 Active insulin lispro (HumaLOG, ADMELOG) 100 unit/mL pen for injectionIndicat ions:Type 2 diabetes mellitus with hyperglycemia, unspecified whether superintendent container terminal insulin use ([facility]) INJECT 0-10 UNITS BEFORE MEALS BASED OFF RIGHT EYE SLIDING SCALE. MAX DAILY DOSE 30 UNITS 15 mL 3 025 Active Ozempic 1 mg/dose (4 mg/3 mL) pen injector injectionIndicat ions:Type 2 diabetes mellitus with hyperglycemia, with long-term current use of insulin ([facility]) INJECT 1 MG UNDER THE SKIN ONCE WEEKLY 3 mL 3 025 Active insulin lispro (HumaLOG) 100 unit/mL pen for injectionIndicat ions:Type 2 diabetes mellitus with hyperglycemia, unspecified whether superintendent container terminal insulin use ([facility]) Inject 0-10 units before meals based off [...] weekly Assessment & Plan (10/07/2023 8:18 PM DIE CASTER): Continue long-term supplement Assessment & Plan (07/07/2023 10:53 AM CDT): -continue same vitamin-D supplementation of 50,000 international units weekly -Will repeat level Assessment & Plan (03/10/2023 8:47 PM CDT): Continue long-term supplement Assessment & Plan (12/03/2022 7:51 PM CDT): Continue fdc supplements. 08/2022- Vitamin D 14 Assessment & Plan (08/26/2022 7:14 AM DIE CASTER): Vitamin D level 14.6 on 08/12/22. Needs to restart supplements: - 50,000 units weekly - 2,000 units daily Polyarthralgia 05/06/2022 Rheumatoid factor positive 05/06/2022 Assessment & Plan (03/10/2023 8:46 PM CDT): With polyarthralgias. Needs rheum evaluation Backache 05/06/2022 Has immunity to COVID-19 virus 05/06/2022 Overview (05/06/2022): Pfizer vaccine x 3 Assessment & Plan (08/25/2022 10:16 AM DIE CASTER): Fully vaccinated, eligible for booster. Assessment & Plan (05/06/2022 1:34 PM CDT): Fully vaccinated, eligible for booster. Elevated transaminase level 05/06/2022 Assessment & Plan (03/10/2023 8:46 PM CDT): Needs optimal glycemic control Vitiligo 05/06/2022 Assessment & Plan (05/07/2022 11:09 AM CDT): Related to autoimmune disorder Autoimmune disease ([facility]) 05/06/2022 Overview (05/06/2022): Vitiligo and history of positive RA Assessment & Plan (04/08/2024 9:06 PM CDT): Vitiligo, history of positive rheumatoid factor. Positive VITALY-65 Ab. Needs ongoing surveillance Assessment & Plan (10/07/2023 8:17 PM DIE CASTER): Vitiligo and history of positive rheumatoid factor. Needs ongoing surveillance Assessment & Plan (07/07/2023 10:53 AM CDT): -he has + RF -Has been referred for rheumatology evaluation -Will also check celiac screen Assessment & Plan (03/10/2023 8:46 PM CDT): Vitiligo and history of positive rheumatoid factor. Needs ongoing surveillance Assessment & Plan (08/26/2022 12:54 AM DIE CASTER): Vitiligo and history of positive rheumatoid factor. Continue with surveillance. Assessment & Plan (05/07/2022 8:43 AM CDT): Vitiligo and history of positive rheumatoid factor. Needs ongoing surveillance Type 2 diabetes mellitus with hyperglycemia ([facility]) 05/05/2022 Overview (04/05/2024): Images from the original note were not included. 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 Currently being managed transitionly as newly diagnosed Type 1/KRISTIAN. Controlled. Lab Results Component Value Date HGBA1C 6.8 06/21/2024 Per [place] [employer], goal A1c is less 7% without significant hypoglycemia. - New Regimen: Metformin 1,000 mg BID Jardiance 25 mg daily Pioglitazone 45 mg daily Increase Ozempic 1 mg weekly Glargine 5 units once daily Loosen Humalog ICR 1:40 plus sliding scale three times daily - Continue management with RapidMind Nnamdi 3 CGM. - At next visit, [...] that I am available via phone or [employer] if they have any concerns for hypo/hyperglycemia, [...] Component Value Date HGBA1C 9.6 01/05/2024 Per [place] [employer], goal A1c is less 7% [...] that I am available via phone or [employer] if they have any concerns for hypo/hyperglycemia, medication refills, etc. Assessment & Plan (01/05/2024 3:59 PM CDT): - Diabetes is uncomplicated, Type 1 vs. KRISTIAN. Uncontrolled. Lab Results Component Value Date HGBA1C 9.6 01/05/2024 Per [place] [employer], goal A1c is less 7% [...] etc. Assessment & Plan (10/07/2023 8:18 PM DIE CASTER): Overall reasonably stable, but prone to evening [...] BG. Assessment & Plan (08/26/2022 12:52 AM DIE CASTER): Fasting sugars above goal. - Increase pioglitazone [...] Return visit 3 months to see the HIGH WIRE ARTIST/PA, 6 months to see me. Assessment & [...] Influenza, Trivalent, IM (MDV) 07/03/2021 Tdap 12/20/2018 Surgical History Surgery Date Site/Laterality Comments PLANTAR'S WART EXCISION about 2019 MASTECTOMY FOR GYNECOMASTIA 09/07/2003 - 09/06/2004 VASECTOMY 09/07/2022 - 09/06/2023 ARM SURGERY 09/07/1996 - 09/06/1997 Left open reduction Medical History Medical History Date Comments Elevated transaminase level Hyperkalemia ADD (attention deficit disorder) childhood Migraines Diabetes mellitus (HCC) Family History Medical History Relation Name Comments Strabismus Daughter Hypertension Father Heart disease Maternal Grandfather Diabetes type II Maternal Grandmother Cancer Mother Lung cancer Mother's Sister Gomez syndrome Sister Lung disease Sister Strabismus Son Relation Name Status Comments Daughter Alive Father Alive Maternal Grandfather Maternal Grandmother Mother Mother's Sister Alive Sister Alive Son Alive Social History Tobacco Use Types Packs/Day Years Used Date Smoking Tobacco: Never Passive Smoke Exposure: Never Smokeless Tobacco: Never Sex and Gender Information Value Date Recorded Sex Assigned at Not on file Legal Sex Male 11:24 AM CDT Gender Identity Not on file Sexual Orientation Not on file 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 Not on file Not o n file Obstetrics History Last Filed Vital Signs Vital Sign Reading Time Taken Comments Blood Pressure 119/75 06/21/2024 1:16 PM CDT Pulse 95 06/21/2024 1:16 PM CDT Temperature 36.9 ??C (98.4 ??F) 06/21/2024 1:16 PM CD T Respiratory Rate - - Oxygen Saturation 99% 09/01/2023 10:52 AM DIE CASTER Inhaled Oxygen Concentration - - Weight 99.1 kg (218 lb 6.4 oz) 06/21/2024 1:16 P M CDT Height 191.8 cm (6' 3.5 ) 06/21/2024 1:16 PM CDT Body Mass Index 26.94 06/21/2024 1:16 PM CDT Plan of Treatment Health Maintenance Due Date Last Done Comments Depression Screening 1987 Foot Exam 1987 Hepatitis C Screening 1987 Pneumococcal vaccine <65 (1 of 2 - PCV) 1993 Dilated Eye Exam 1997 Varicella Vaccines (1 of 2 - 13+ 2-dose series) 2000 Hepatitis B Screening 2005 Regular Well Visit/Exam 18-64 2005 Covid-19 Vaccine ( season) 2024 07/26/2021, 11/27/2020, 11/06/2020 Influenza Vaccine (#1) 2024 , 06/21/2020, 06/17/2019, Additional history exists Albumin Creatinine Ratio, Urine 10/21/2024 10/21/2023 Lipid Panel 10/21/2024 10/21/2023 TSH Level 10/21/2024 10/21/2023, 08/22/2022 Hemoglobin A1C 12/20/2024 06/21/2024, 04/, 07/07/2023, Additional history exists eGFR 01/24/2025 01/25/2024, 10/08, 08/22/2022 DTaP/Tdap/Td Vaccine (2 - Td or Tdap) 12/20/2028 12/20/2018 HPV Vaccines Aged Out No longer eligi ble based on patient's age to complete this topic Procedures Procedure Name Priority Date/Time Associated Diagnosis Comments POCT HEMOGLOBIN A1C Routine 06/21/2024 1 :20 PM CDT Type 2 diabetes mellitus with hyperglycemia, with long-term current use of insulin ([facility]) [E11.65, Z79.4] RENAL FUNCTION PANEL Routine 01/25/2024 10:45 AM CDT Hypercalcemia LIPID PANEL Routine 10/21/2023 4:20 PM DIE CASTER Type 2 diabetes mellitus with hyperglycemia, without long-term current use of insulin ([facility]) ([facility]) ALBUMIN CREATININE RATIO, URINE Routine 10/21/2023 4:20 PM DIE CASTER Type 2 diabetes mellitus with hyperglycemia, without long-term current use of insulin ([facility]) ([facility]) THYROID FUNCTION CASCADE Routine 10/21/2023 4:20 PM DIE CASTER Type 2 diabetes mellitus with hyperglycemia, without long-term current use of insulin ([facility]) ([facility]) from Last 3 Months or Most Recently Relevant to Health Maintenance Results * POCT hemoglobin A1c (06/21/2024 1:20 PM CDT) Hemoglobin A1C, POC 6.8 4.0 - 5.6 % Blood 06/21/2024 1:20 PM CDT us Manjula CARRION POINT OF CARE TEST ORDERA [...] 4:08 AM CDT Performed at: ??01 - [facility] ??[id number] Can Capper: Kleber Shirley PhD, Phone: ??[phone] us Manjula CARRION LAB BLOOD ORDERABLES Ana l Result [facility] - 01 * Thyroid Function [place] (10/21/2023 4:20 PM DIE CASTER) TSH 0.827 0.450 - 4.500 uIU/mL [facility] - 01 Comment: No apparent thyroid disorder. Additional testing not indicated. In rare instances, Secondary Hypothyroidism as well as Subclinical Hypothyroidism have been reported in some patients with normal TSH values. Blood 10/21/2023 4:20 PM DIE CASTER 10/21/2023 Narrative [facility] - 10/22/2023 10:11 AM DIE CASTER Performed at: ??01 - [facility] [address] ??[id number] Can Capper: Kleber Shirley PhD, Phone: ??[phone] us Sandra Meyerradha Aviles HIGH WIRE ARTIST LAB BLOOD ORDERABLES Final Result Performing Organization Address [facility] de Phone Number [facility] - 01 * Albumin Creatinine Ratio, Urine (10/21/2023 4:20 PM DIE CASTER) Creatinine ur 32.3 Not Estab. mg/dL [facility] - 01 Microalbumin, ur 3.1 Not Estab. ug/mL [facility] - 01 Microalbumin/cre at ratio 10 0 - 29 mg/g creat [facility] - 01 Comment: ? Normal: ?0 - ??29 ? Moderately increased: 30 - 300 ? Severely increased: ? >300 Urine 10/21/2023 4:20 PM DIE CASTER 10/21/2023 Narrative [facility] - 10/22/2023 10:11 AM DIE CASTER Performed at: ??01 - [facility] [address] ??[id number] Can Capper: Kleber Shirley PhD, Phone: ??[phone] us Sandra Lizet Aviles HIGH WIRE ARTIST LAB URINE ORDERABLES Final Result Performing Organization Address [facility] de Phone Number [facility] - 01 * Lipid panel (10/21/2023 4:20 PM DIE CASTER) Cholesterol 184 100 - 199 mg/dL [facility] - 01 Triglycerides 138 0 - 149 mg/dL [facility] - 01 HDL Cholesterol 81 >39 mg/dL [facility] - 01 VLDL 23 5 - 40 mg/dL [facility] - 01 LDL, calculated 80 0 - 99 mg/dL [facility] - 01 Blood 10/21/2023 4:20 PM DIE CASTER 10/21/2023 Narrative [facility] - 10/22/2023 10:11 AM DIE CASTER Performed at: ??01 - [facility] [address] ??[id number] Can Capper: Kleber Shirley PhD, Phone: ??[phone] us Sandra Aviles HIGH WIRE ARTIST LAB BLOOD ORDERABLES Final Result [facility] - 01 from Last 3 Months or Most Recently Relevant to Health Maintenance Insurance [facility] PL[facility] Care Teams Facilities Maintenance Assistant Relationship Specialty Start Date End Date Demetris Chaudhry DO PCP - General Internal Medicine 02/19/22 Leanne Brown MD Referring Physician Endocrinology Diabetes & Metabolism 05/06/22 Harvinder Sanders Jr., DPM Referring Physician Podiatry 05/07/22 Angeles Dee MD [address] [facility] [address] Consulting Physician Bone Health 10/07/23 Manjula Peguero PA [address] [facility], [place] [address] [place] [id number] Physician Healthcare Science Specialist Physician Healthcare Science Specialist 04/04/24
--- OUTSIDE RECORDS SUMMARY | 2024-09-29 04:38 | XMS_ITS | Encounter Summary ---
Author Organization [facility] Address [address] [place] [address] Phone Care Team Providers Care Sweeper Brush Maker Machine Name Role Phone Demetris Chaudhry DO Primary Care Provider [phone] Leanne Brown MD Unavailable Tommy Devine DPM, Gabriel Unavailable [phone] Angeles Dee MD Unavailable Manjula Peguero Unavailable Encounter Details Date Type Department Care Team (Late st Contact Info) Description 09/17/2023 Orders Only [facility] Scanning, Provider Social History Tobacco Use Types Packs/Day Years Used Date Smoking Tobacco: Never Passive Smoke Exposure: Never Smokeless Tobacco: Never Sex and Gender Information Value Date Recorded Sex Assigned at Not on file Legal Sex Male 11:24 AM CDT Gender Identity Not on file Sexual Orientation Not on file 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 Not on file Not o n file documented as of this encounter Plan of Treatment Not on file documented as of this encounter Procedures Procedure Name Priority Date/Time Associated Diagnosis Comments SCAN - RADIOLOGY/IMAGING 09/17/2023 documented in this encounter Results * SCAN - RADIOLOGY/IMAGING (09/17/2023) Anatomical Region Laterality Modality Other us Provider Scanning Final Result documented in this encounter Visit Diagnoses Not on filedocumented in this encounter Care Teams Sweeper Brush Maker Machine Relationship Specialty Start Date End Date Demetris Chaudhry DO PCP - General Internal Medicine 02/19/22 Leanne Brown MD Referring Physician Endocrinology Diabetes & Metabolism 05/06/22 Harvinder Sanders Jr., KURT Referring Physician Podiatry 05/07/22 Angeles Dee MD [address] [facility] [place] [address] Consulting Physician Bone Health 10/07/23 Manjula Peguero PA [address] [facility] END[facility], [place] [address] [place] [address] Physician Ribber Physician Ribber 04/04/24 documented as of this encounter
== END 2024-09-24 15:20 | disposition home or self-care (01) ==
LOC: ANHSURGERY 11:23 → ANH3MEDSUR 13:34
PROVIDERS: PCP Internal Medicine; Visit Provider Neurological Surgery
PROC: (CPT 22612; principal; 2024-09-23 07:30)
DX: M48.061 Spinal stenosis, lumbar region without neurogenic claudication (principal); M43.16 Spondylolisthesis, lumbar region; E11.9 Type 2 diabetes mellitus without complications; J45.909 Unspecified asthma, uncomplicated; E55.9 Vitamin D deficiency, unspecified; E87.5 Hyperkalemia; J98.2 Interstitial emphysema; G89.29 Other chronic pain; Z79.51 Long term (current) use of inhaled steroids; Z79.84 Long term (current) use of oral hypoglycemic drugs; Z79.4 Long term (current) use of insulin; Z79.85 Long-term (current) use of injectable non-insulin antidiabetic drugs; Z82.49 Family history of ischemic heart disease and other diseases of the circulatory system
CPT/HCPCS: 22630; 36415; 82948; 86850; 86900; 86901; 99199; A9270; C1713; J0690; J1100; J1171; J1815; J2003; J2004; J2250; J2405; J2704; J3010; J3360; J7030; J7120

== ENCOUNTER 2024-11-11 12:26 | Outpatient (CLI) | payer OTHER, SELFPAY ==
--- OUTSIDE RECORDS SUMMARY | 2024-11-11 12:47 | XMS_ITS | Referral Summary ---
Author Organization [facility] Address [address] [place] [address] Care Team Providers Care Clinical Trial Data Manager Name Role Phone Unavailable Primary Care Provider Unavailabl e Source Comments [facility],non-owned Affiliates and Associated Physician Practices is amultiple site organization consisting of ambulatory clinics and hospital sitesin [place], [place], [place] and [place]. This disclosure is being madepursuant to the Care Everywhere program and may not contain all information available regarding this patient. Last updated 18.[facility] Allergies No known active allergies Medications Be [...]
--- OUTSIDE RECORDS SUMMARY | 2024-11-11 12:47 | XMS_ITS | Clinical Summary ---
Author Organization [facility] Address [address] [place] [address] Care Team Providers Care Poultry Culler Name Role Phone Demetris Chaudhry DO Primary Care Provider [phone] Leanne Brown MD Unavailable Tommy Devine DPM, Gabriel Unavailable Angeles Dee MD Unavailable Manjula Peguero Unavailable Allergies Active Allergy Reactions Criticality Noted Date Comments Aloe Vera Blisters High 05/06/2022 Sumatriptan Anaphylaxis High 07/07/2023 Medications OneTouch Delica Plus Lancet 30 gauge misc 01/30/20 22 Active valACYclovir (VALTREX) 1 gram tablet Take 1 tablet (1,000 mg total) by mouth 2 (two) times a day as needed Active albuterol HFA (PROVENTIL HFA,VENTOLIN HFA,PROAIR HFA) 90 mcg/actuation inhaler Inhale 2 puffs every 6 (six) hours as needed for wheezing Active cholecalciferol (VITAMIN D-3) 2000 unit capsule 1 daily Ac tive ubrogepant (Ubrelvy) 50 mg tablet Take 1 [...] amitriptyline 2% Active tiZANidine (ZANAFLEX) 2 mg tabletIndications :Muscle Spasm Take 1 tablet (2 mg total) by mouth every 6 (six) hours as needed for muscle spasms 30 tablet 1 09/01/20 23 Active glucagon (BAQSIMI) 3 mg/actuation spray,non-aerosol Use one actuation into a single nostril. If no response, may repeat in 15 minutes using a new intranasal device. 2 each 10/06/19 24 Active meloxicam (MOBIC) 15 mg tabletIndications :Osteoarthritis Take 1 tablet (15 mg total) by mouth daily 30 tablet 1 11/03/19 24 Active ergocalciferol (VITAMIN D) 50,000 unit capsuleIndication s:Vitamin D deficiency Take one capsule by mouth Weekly 5 capsule 12/29/[address] (CYMBALTA) 60 mg capsule Take 1 capsule (60 mg total) by mouth daily 10/26/19 24 Active FreeStyle Nnamdi 3 Sensor deviceIndications :Type 2 diabetes mellitus with hyperglycemia, without long-term current use of insulin (HCC),Positive VITALY antibody Use to check blood sugar 4 times a day and as needed. Replace sensor every 14 days. 2 each 01/05/20 24 Active blood glucose diagnostic (glucose blood) stripIndications: Type 2 diabetes mellitus with hyperglycemia, without long-term current use of insulin ([facility]) Check blood sugar four times a day or as directed 200 each 01/19/20 24 Active baclofen (LIORESAL) 10 mg tablet 01/28/20 24 Active traMADoL (ULTRAM) 50 mg tablet 01/28/20 24 Active blood-glucose sensor device Use as directed to check BG. 2 each 05/17/20 24 Active ondansetron ODT (ZOFRAN-ODT) 4 mg disintegrating tabletIndications :Type 2 diabetes mellitus with hyperglycemia, with long-term current use of insulin (HCC) Take 1 tablet (4 mg total) by mouth every 8 (eight) hours as needed for nausea or vomiting 20 tablet 3 06/21/20 24 Active pen needle, diabetic 32 gauge x needleIndications :Type 2 diabetes mellitus with hyperglycemia, with long-term current use of insulin ([facility]) Use pen needles with insulin injection up to 4 times a day. 400 each 3 06/21/20 24 Active metFORMIN (GLUCOPHAGE) 1,000 mg tabletIndications :Type 2 diabetes mellitus with hyperglycemia, without long-term current use of insulin ([facility]) TAKE 1 TABLET(1000 MG) BY MOUTH TWICE DAILY WITH MEALS 180 tablet 1 08/12/20 24 Active Jardiance 25 mg tabletIndications :Type 2 diabetes mellitus with hyperglycemia, without long-term current use of insulin ([facility]) TAKE 1 TABLET(25 MG) BY MOUTH DAILY 90 tablet 1 08/17/20 24 Active insulin lispro (HumaLOG, ADMELOG) 100 unit/mL pen for injectionIndicati ons:Type 2 diabetes mellitus with hyperglycemia, unspecified whether termite renewal inspector insulin use ([facility]) INJECT 0-10 UNITS BEFORE MEALS BASED OFF RIGHT EYE SLIDING SCALE. MAX DAILY DOSE 30 UNITS 15 mL 3 09/08/19 25 Active Ozempic 1 mg/dose (4 mg/3 mL) pen injector injectionIndicati ons:Type 2 diabetes mellitus with hyperglycemia, with long-term current use of insulin ([facility]) INJECT 1 MG UNDER THE SKIN ONCE WEEKLY 3 mL 3 09/19/19 25 Active pioglitazone (ACTOS) 45 mg tabletIndications :Type 2 diabetes mellitus with hyperglycemia, unspecified whether skilled nursing insulin use ([facility]) TAKE 1 TABLET(45 MG) BY MOUTH DAILY 90 tablet 1 10/03/19 25 Active cyclobenzaprine (FLEXERIL) 5 mg tablet 09/24/19 25 Active insulin glargine (TOUJEO) 300 unit/mL (1.5 mL) pen for injection 6 units daily 3 mL 6 10/11/19 25 Active Active Problems Problem Noted Date Diagnosed Date Positive VITLAY antibody 01/05/2024 Overview (04/05/2024): Images from the [...] (01/05/2024 3:53 PM CDT): - October 2023 +VITLAY-65 and +islet antibodies - C-peptide was 1.5 with a glucose of 230 mg/dL - Briefly counseled on potential diagnosis of Type 1 diabetes. - Will schedule him a full one-hour of education time with CDEs - He would be a good candidate for an insulin pump in the future. Hypercalcemia 01/05/2024 Assessment & Plan (10/16/2024 7:38 PM CONFECTIONERY LABORATORY MANAGER): Still needs f/u labs as ordered last fall. Assessment & Plan (01/19/2024 2:40 PM CDT): [...] Vitamin D deficiency 08/25/2022 Assessment & Plan (10/16/2024 7:38 PM CONFECTIONERY LABORATORY MANAGER): Continue long-term supplement but with slightly high Ca needs f/u labs. Assessment & Plan (06/21/2024 3:14 PM CDT): - Last Vitamin D 37.1 (10/2023), replete - Continue taking 50,000 units weekly Assessment & Plan (04/08/2024 9:03 PM CDT): Continue long-term supplement Assessment & Plan (01/05/2024 3:57 PM CDT): - Last Vitamin D 37.1 (10/2023), WNL - Continue taking 50,000 units weekly Assessment & Plan (10/07/2023 8:18 PM CONFECTIONERY LABORATORY MANAGER): Continue long-term supplement Assessment & Plan (07/07/2023 10:53 AM CDT): -continue same vitamin-D supplementation of 50,000 international units weekly -Will repeat level Assessment & Plan (03/10/2023 8:47 PM CDT): Continue long-term supplement Assessment & Plan (12/03/2022 7:51 PM CDT): Continue termite renewal inspector supplements. 08/2022- Vitamin D 14 Assessment & Plan (08/26/2022 7:14 AM CONFECTIONERY LABORATORY MANAGER): Vitamin D level 14.6 on 08/12/22. Needs to restart supplements: - 50,000 units weekly - 2,000 units daily Polyarthralgia 05/06/2022 Rheumatoid factor positive 05/06/2022 Assessment & Plan (03/10/2023 8:46 PM CDT): With polyarthralgias. Needs rheum evaluation Backache 05/06/2022 Has immunity to COVID-19 virus 05/06/2022 Overview (05/06/2022): Pfizer vaccine x 3 Assessment & Plan (08/25/2022 10:16 AM CONFECTIONERY LABORATORY MANAGER): Fully vaccinated, eligible for booster. Assessment & Plan (05/06/2022 1:34 PM CDT): Fully vaccinated, eligible for booster. Elevated transaminase level 05/06/2022 Assessment & Plan (03/10/2023 8:46 PM CDT): Needs optimal glycemic control Vitiligo 05/06/2022 Assessment & Plan (05/07/2022 11:09 AM CDT): Related to autoimmune disorder Autoimmune disease 05/06/2022 Overview (10/10/2024): Vitiligo and history of positive RA; positive VITALY-65 Ab Assessment & Plan (10/16/2024 7:37 PM CONFECTIONERY LABORATORY MANAGER): Vitiligo, history of positive rheumatoid factor. Positive VITALY-65 Ab. Needs ongoing surveillance Assessment & Plan (04/08/2024 9:06 PM CDT): Vitiligo, history of positive rheumatoid factor. Positive VITALY-65 Ab. Needs ongoing surveillance Assessment & Plan (10/07/2023 8:17 PM CONFECTIONERY LABORATORY MANAGER): Vitiligo and history of positive rheumatoid factor. Needs ongoing surveillance Assessment & Plan (07/07/2023 10:53 AM CDT): -he has + RF -Has been referred for rheumatology evaluation -Will also check celiac screen Assessment & Plan (03/10/2023 8:46 PM CDT): Vitiligo and history of positive rheumatoid factor. Needs ongoing surveillance Assessment & Plan (08/26/2022 12:54 AM CONFECTIONERY LABORATORY MANAGER): Vitiligo and history of positive rheumatoid factor. Continue with surveillance. Assessment & Plan (05/07/2022 8:43 AM CDT): Vitiligo and history of positive rheumatoid factor. Needs ongoing surveillance Type 2 diabetes mellitus with hyperglycemia 04/08 Overview (04/05/2024): Images from the original note were not included. Diagnosed 201510/21/2023 - C-peptide 1.5 Assessment & Plan (10/16/2024 7:40 PM CONFECTIONERY LABORATORY MANAGER): Overall reasonably stable, but prone to higher and post-meal glucoses, particularly in the mornings historically. Recent numbers affected by recent surgery and possible infection. Would benefit from a longer-acting, stable basal insulin. Also noted positive antibodies. 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 Currently being managed transitionly as newly diagnosed Type 1/KRISTIAN. Controlled. Lab Results Component Value Date HGBA1C 6.8 06/21/2024 Per [employer], goal A1c is less 7% without significant hypoglycemia. - New Regimen: Metformin 1,000 mg BID Jardiance 25 mg daily Pioglitazone 45 mg daily Increase Ozempic 1 mg weekly Glargine 5 units once daily Loosen Humalog ICR 1:40 plus sliding scale three times daily - Continue management with [employer] Nnamdi 3 CGM. - At next visit, [...] that I am available via phone or Alitaliahart if they have any concerns for hypo/hyperglycemia, [...] Component Value Date HGBA1C 9.6 01/05/2024 Per [employer], goal A1c is less 7% [...] Component Value Date HGBA1C 9.6 01/05/2024 Per [employer], goal A1c is less 7% [...] etc. Assessment & Plan (10/07/2023 8:18 PM CONFECTIONERY LABORATORY MANAGER): Overall reasonably stable, but prone to evening [...] BG. Assessment & Plan (08/26/2022 12:52 AM CONFECTIONERY LABORATORY MANAGER): Fasting sugars above goal. - Increase pioglitazone [...] Return visit 3 months to see the INDUSTRIAL MAINTENANCE MECHANIC/PA, 6 months to see me. Assessment & Plan (05/07/2022 8:43 AM CDT): Intelligent, motivated and will benefit from more advanced Education today. Also would benefit from adding low-dose pioglitazone Hyperkalemia Overview (05/07/2022): Normal adrenal function and now off lisinopril Assessment & Plan (05/07/2022 11:22 AM CDT): Likely related to diabetes, but currently off lisinopril and need to follow Encounters Date Type Department Care Team Description 10/11/2024 2:00 PM CONFECTIONERY LABORATORY MANAGER Telemedicine [facility] Endocrinology Metabolism and Lipid [address] [place] [address] [place] [address] Leanne Brown MD Type 2 diabetes mellitus with hyperglycemia, with long-term current use of insulin (HCC) (Primary Dx); Hypercalcemia; Autoimmune disease; Vitamin D deficiency from Last 3 Months Immunizations Immunization Administration Dates Next Due Influenza, Quadrivalent, Adore [...] 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 on file Not o n file Obstetrics History Last Filed Vital Signs Vital Sign Reading Time Taken Comments Blood Pressure 119/75 06/21/2024 1:16 PM CDT Pulse 95 06/21/2024 1:16 PM CDT Temperature 36.9 C (98.4 F) 06/21/2024 1:16 PM CDT Respiratory Rate - - Oxygen Saturation 99% 09/01/2023 10:52 AM CONFECTIONERY LABORATORY MANAGER Inhaled Oxygen Concentration - - Weight 99.1 kg (218 lb 6.4 oz) 06/21/2024 1:16 P M CDT Height 191.8 cm (6' 3.5 ) 06/21/2024 1:16 PM CDT Body Mass Index 26.94 06/21/2024 1:16 PM CDT Plan of Treatment Health Maintenance Due Date Last Done Comments Depression Screening 1987 Foot Exam 1987 Hepatitis C Screening 1987 Dilated Eye Exam 1997 Varicella Vaccines (1 of 2 - 13+ 2-dose series) 2000 Hepatitis B Screening 2005 Regular Well Visit/Exam 18-64 2005 Pneumococcal vaccine <65 (1 of 2 - PCV) 2006 Covid-19 Vaccine ( season) 2024 07/26/2021, 11/27/2020, 11/06/2020 Influenza Vaccine (#1) 2024 , 06/21/2020, 06/17/2019, Additional history exists Albumin Creatinine Ratio, Urine 10/21/2024 10/21/2023 Lipid Panel 10/21/2024 10/21/2023 TSH Level 10/21/2024 10/21/2023, 08/22/2022 Hemoglobin A1C 12/20/2024 06/21/2024, 12/08, 07/07/2023, Additional history exists eGFR 01/24/2025 01/25/2024, [...] with long-term current use of insulin (HCC) [E11.65, Z79.4] RENAL FUNCTION PANEL Routine 01/25/2024 10:45 AM CDT Hypercalcemia LIPID PANEL Routine 10/21/2023 4:20 PM CONFECTIONERY LABORATORY MANAGER Type 2 diabetes mellitus with hyperglycemia, without long-term current use of insulin (HCC) ALBUMIN CREATININE RATIO, URINE Routine 10/21/2023 4:20 PM CONFECTIONERY LABORATORY MANAGER Type 2 diabetes mellitus with hyperglycemia, without long-term current use of insulin (HCC) THYROID FUNCTION CASCADE Routine 10/21/2023 4:20 PM CONFECTIONERY LABORATORY MANAGER Type 2 diabetes mellitus with hyperglycemia, without long-term current use of insulin (HCC) from Last 3 Months or Most Recently [...] - 01/26/2024 4:08 AM CDT Performed at: 01 - [facility] [id number] Assignment Desk Editor: Kleber Shirley PhD, Phone: [phone] Manjula CARRION LAB BLOOD ORDERABLES Ana l Result [facility] - 01 * Thyroid Function Loíza (10/21/2023 4:20 PM CONFECTIONERY LABORATORY MANAGER) TSH 0.827 0.450 - 4.500 uIU/mL [facility] - 01 Comment: No apparent thyroid disorder. Additional testing not indicated. In rare instances, Secondary Hypothyroidism as well as Subclinical Hypothyroidism have been reported in some patients with normal TSH values. Blood 10/21/2023 4:20 PM CONFECTIONERY LABORATORY MANAGER 10/21/2023 Narrative [facility] - 10/22/2023 10:11 AM CONFECTIONERY LABORATORY MANAGER Performed at: [address] [place] [id number] Assignment Desk Editor: Kleber Shirley PhD, Phone: [phone] Sandra Aviles INDUSTRIAL MAINTENANCE MECHANIC LAB BLOOD ORDERABLES Final Result Performing Organization Address [facility] de Phone Number [facility] - 01 * Albumin Creatinine Ratio, Urine (10/21/2023 4:20 PM CONFECTIONERY LABORATORY MANAGER) Creatinine ur 32.3 Not Estab. mg/dL [facility] - 01 Microalbumin, ur 3.1 Not Estab. ug/mL [facility] - 01 Microalbumin/cre at ratio 10 0 - 29 mg/g creat [facility] - 01 Comment: Normal: 0 - 29 Moderately increased: 30 - 300 Severely increased: >300 Urine 10/21/2023 4:20 PM CONFECTIONERY LABORATORY MANAGER 10/21/2023 Narrative [facility] - 10/22/2023 10:11 AM CONFECTIONERY LABORATORY MANAGER Performed at: [address] [place] [id number] Assignment Desk Editor: Kleber Shirley PhD, Phone: [phone] Sandra Aviles INDUSTRIAL MAINTENANCE MECHANIC LAB URINE ORDERABLES Final Result Performing Organization Address [facility] Co de Phone Number [facility] - 01 * Lipid panel (10/21/2023 4:20 PM CONFECTIONERY LABORATORY MANAGER) Cholesterol 184 100 - 199 mg/dL [facility] - 01 Triglycerides 138 0 - 149 mg/dL [facility] - 01 HDL Cholesterol 81 >39 mg/dL [facility] - 01 VLDL 23 5 - 40 mg/dL [facility] - 01 LDL, calculated 80 0 - 99 mg/dL [facility] - 01 Blood 10/21/2023 4:20 PM CONFECTIONERY LABORATORY MANAGER 10/21/2023 Narrative [facility] - 10/22/2023 10:11 AM CONFECTIONERY LABORATORY MANAGER Performed at: - [facility] [address] [id number] Assignment Desk Editor: Kleber Shirley PhD, Phone: [phone] us Sandra Aviles INDUSTRIAL MAINTENANCE MECHANIC LAB BLOOD ORDERABLES Final Result Performing Organization Address City/State/[facility] Co de Phone Number [facility] - 01 from Last 3 Months or Most Recently Relevant to Health Maintenance Insurance [facility] [employer] Care Teams Poultry Culler Relationship Specialty Start Date End Date Demetris Chaudhry DO PCP - General Internal Medicine 02/19/22 Leanne Brown MD Referring Physician Endocrinology Diabetes & Metabolism 05/06/22 Harvinder Sanders Jr., KURT Referring Physician Podiatry 05/07/22 Angeles Dee MD [address] [facility] [address] Consulting Physician Bone Health 10/07/23 Manjula Peguero PA [address] [facility] ENDOCRINOLOGY, ALESHA [address] [place] [id number] Physician Safemaker Physician Safemaker 04/04/24
--- OUTSIDE RECORDS SUMMARY | 2024-11-11 12:47 | XMS_ITS | Patient Health Summary ---
Author Organization [facility] Address [address] [place] [address] Care Team Providers Care Farm Machine Operator Name Role Phone Unavailable Primary Care Provider Unavailabl e Note from [facility],non-owned Affiliates and Associated Physician Practices is amultiple site organization consisting of ambulatory clinics and hospital sitesin [place], [place], [place] and [place]. This disclosure is being madepursuant to the Care Everywhere program and may not contain all information available regarding this patient. Last updated 18.[facility] Allergies No known active allergies Medications Be [...]
--- OUTSIDE RECORDS SUMMARY | 2024-11-11 12:47 | XMS_ITS | Clinical Summary ---
Author Organization [facility] Address [address] [place] [address] Care Team Providers Care Supreme Court Judge Name Role Phone Unavailable Primary Care Provider Unavailabl e Source Comments [facility],non-owned Affiliates and Associated Physician Practices is amultiple site organization consisting of ambulatory clinics and hospital sitesin [place], [place], [place] and [place]. This disclosure is being madepursuant to the Care Everywhere program and may not contain all information available regarding this patient. Last updated 18.[facility] Allergies No known active allergies Medications Be [...]
--- OUTSIDE RECORDS SUMMARY | 2024-11-11 12:47 | XMS_ITS | Referral Summary ---
Author Organization [facility] Address [address] [place] [address] Care Team Providers Care Pulper Name Role Phone Demetris Chaudhry DO Primary Care Provider [phone] Leanne Brown MD Unavailable Tommy Devine DPM, Gabriel Unavailable Angeles Dee MD Unavailable [phone] Manjula Peguero Unavailable Encounters Date Type Department Care Team Description 10/11/2024 2:00 PM PARTS IDENTIFIER Telemedicine [facility] Endocrinology Metabolism and Lipid [address] [facility] 13[address] [place] [address] [place] [address] Leanne Brown MD Type 2 diabetes mellitus with hyperglycemia, with long-term current use of insulin (HCC) (Primary Dx); Hypercalcemia; Autoimmune disease; Vitamin D deficiency from Last 3 Months Allergies Active Allergy Reactions Criticality Noted Date [...] hyperglycemia, without long-term current use of insulin ([facility]),Positive VITALY antibody Use to check blood sugar [...] directed to check BG. 2 each 11 05/17/20 24 Active ondansetron ODT (ZOFRAN-ODT) 4 mg disintegrating tabletIndications :Type 2 diabetes mellitus with hyperglycemia, with long-term current use of insulin ([facility]) Take 1 tablet (4 mg total) by mouth every 8 (eight) hours as needed for nausea or vomiting 20 tablet 3 06/21/20 24 Active pen needle, diabetic 32 gauge x 5/32 needleIndications :Type 2 diabetes mellitus with hyperglycemia, with long-term current use of insulin ([facility]) Use pen needles with insulin injection up to 4 times a day. 400 each 3 06/21/20 24 Active metFORMIN (GLUCOPHAGE) 1,000 mg tabletIndications :Type 2 diabetes mellitus with hyperglycemia, without long-term current use of insulin ([facility]) TAKE 1 TABLET(1000 MG) BY MOUTH TWICE DAILY WITH MEALS 180 tablet 1 08/12/20 24 Active Jardiance 25 mg tabletIndications :Type 2 diabetes mellitus with hyperglycemia, without long-term current use of insulin ([facility]) TAKE 1 TABLET(25 MG) BY MOUTH DAILY 90 tablet 1 08/17/20 24 Active insulin lispro (HumaLOG, ADMELOG) 100 unit/mL pen for injectionIndicati ons:Type 2 diabetes mellitus with hyperglycemia, unspecified whether care home insulin use ([facility]) INJECT 0-10 UNITS BEFORE MEALS BASED OFF RIGHT EYE SLIDING SCALE. MAX DAILY DOSE 30 UNITS 15 mL 3 09/08/19 25 Active Ozempic 1 mg/dose (4 mg/3 mL) pen injector injectionIndicati ons:Type 2 diabetes mellitus with hyperglycemia, with long-term current use of insulin ([facility]) INJECT 1 MG UNDER THE SKIN ONCE WEEKLY 3 mL 3 09/19/19 25 Active pioglitazone (ACTOS) 45 mg tabletIndications :Type 2 diabetes mellitus with hyperglycemia, unspecified whether meterman insulin use ([facility]) TAKE 1 TABLET(45 MG) BY MOUTH DAILY [...] 01/05/2024 Assessment & Plan (10/16/2024 7:38 PM PARTS IDENTIFIER): Still needs f/u labs as ordered last [...] 08/25/2022 Assessment & Plan (10/16/2024 7:38 PM PARTS IDENTIFIER): Continue long-term supplement but with slightly high [...] weekly Assessment & Plan (10/07/2023 8:18 PM PARTS IDENTIFIER): Continue long-term supplement Assessment & Plan (07/07/2023 10:53 AM CDT): -continue same vitamin-D supplementation of 50,000 international units weekly -Will repeat level Assessment & Plan (03/10/2023 8:47 PM CDT): Continue long-term supplement Assessment & Plan (12/03/2022 7:51 PM CDT): Continue meterman supplements. 08/2022- Vitamin D 14 Assessment & Plan (08/26/2022 7:14 AM PARTS IDENTIFIER): Vitamin D level 14.6 on 08/12/22. Needs to restart supplements: - 50,000 units weekly - 2,000 units daily Polyarthralgia 05/06/2022 Rheumatoid factor positive 05/06/2022 Assessment & Plan (03/10/2023 8:46 PM CDT): With polyarthralgias. Needs rheum evaluation Backache 05/06/2022 Has immunity to COVID-19 virus 05/06/2022 Overview (05/06/2022): Pfizer vaccine x 3 Assessment & Plan (08/25/2022 10:16 AM PARTS IDENTIFIER): Fully vaccinated, eligible for booster. Assessment & [...] Ab Assessment & Plan (10/16/2024 7:37 PM PARTS IDENTIFIER): Vitiligo, history of positive rheumatoid factor. Positive VITALY-65 Ab. Needs ongoing surveillance Assessment & Plan (04/08/2024 9:06 PM CDT): Vitiligo, history of positive rheumatoid factor. Positive VITALY-65 Ab. Needs ongoing surveillance Assessment & Plan (10/07/2023 8:17 PM PARTS IDENTIFIER): Vitiligo and history of positive rheumatoid factor. Needs ongoing surveillance Assessment & Plan (07/07/2023 10:53 AM CDT): -he has + RF -Has been referred for rheumatology evaluation -Will also check celiac screen Assessment & Plan (03/10/2023 8:46 PM CDT): Vitiligo and history of positive rheumatoid factor. Needs ongoing surveillance Assessment & Plan (08/26/2022 12:54 AM PARTS IDENTIFIER): Vitiligo and history of positive rheumatoid factor. Continue with surveillance. Assessment & Plan (05/07/2022 8:43 AM CDT): Vitiligo and history of positive rheumatoid factor. Needs ongoing surveillance Type 2 diabetes mellitus with hyperglycemia 04/08 Overview (04/05/2024): Images from the original note were not included. Diagnosed 201510/21/2023 - C-peptide 1.5 Assessment & Plan (10/16/2024 7:40 PM PARTS IDENTIFIER): Overall reasonably stable, but prone to higher [...] Component Value Date HGBA1C 6.8 06/21/[address] [place] [employer], goal A1c is less 7% without significant hypoglycemia. - New Regimen: Metformin 1,000 mg BID Jardiance 25 mg daily Pioglitazone 45 mg daily Increase Ozempic 1 mg weekly Glargine 5 units once daily Loosen Humalog ICR 1:40 plus sliding scale three times daily - Continue management with FreeStyle Nnamdi 3 CGM. - At next visit, [...] that I am available via phone or [facility] if they have any concerns for hypo/hyperglycemia, [...] Component Value Date HGBA1C 9.6 01/05/[address] [place], goal A1c is less 7% [...] that I am available via phone or [facility] if they have any concerns for hypo/hyperglycemia, medication refills, etc. Assessment & Plan (01/05/2024 3:59 PM CDT): - Diabetes is uncomplicated, Type 1 vs. KRISTIAN. Uncontrolled. Lab Results Component Value Date HGBA1C 9.6 01/05/[address] [place] [employer], goal A1c is less 7% [...] that I am available via phone or [facility] if they have any concerns for hypo/hyperglycemia, medication refills, etc. Assessment & Plan (10/07/2023 8:18 PM PARTS IDENTIFIER): Overall reasonably stable, but prone to evening [...] BG. Assessment & Plan (08/26/2022 12:52 AM PARTS IDENTIFIER): Fasting sugars above goal. - Increase pioglitazone [...] Return visit 3 months to see the GLUE SPECIALTY SUPERVISOR/PA, 6 months to see me. Assessment & Plan (05/07/2022 8:43 AM CDT): Intelligent, motivated and will benefit from more advanced Education today. 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 o n file Last Filed Vital Signs Vital Sign Reading Time Taken Comments Blood Pressure 119/75 06/21/2024 1:16 PM CDT Pulse 95 06/21/2024 1:16 PM CDT Temperature 36.9 C (98.4 F) 06/21/2024 1:16 PM CDT Respiratory Rate - - Oxygen Saturation 99% 09/01/2023 10:52 AM PARTS IDENTIFIER Inhaled Oxygen Concentration - - Weight 99.1 [...] Hypercalcemia LIPID PANEL Routine 10/21/2023 4:20 PM PARTS IDENTIFIER Type 2 diabetes mellitus with hyperglycemia, without long-term current use of insulin (HCC) ALBUMIN CREATININE RATIO, URINE Routine 10/21/2023 4:20 PM PARTS IDENTIFIER Type 2 diabetes mellitus with hyperglycemia, without long-term current use of insulin (HCC) THYROID FUNCTION CASCADE Routine 10/21/2023 4:20 PM PARTS IDENTIFIER Type 2 diabetes mellitus with hyperglycemia, without long-term current use of insulin (HCC) from Last 3 Months or Most Recently Relevant to Health Maintenance Results * POCT hemoglobin A1c (06/21/2024 1:20 PM CDT) Pathologist [facility] Hemoglobin A1C, POC 6.8 4.0 - 5.6 % Blood 06/21/2024 1:20 PM CDT Manjula CARRION POINT OF CARE TEST ORDERA BLES Final Result * (ABNORMAL) Renal function panel (01/25/2024 10:45 AM CDT) Pathologist [facility] Glucose 113(H) 70 - 99 mg/dL [facility] [...] 4:08 AM CDT Performed at: 01 - [facility] [address] [id number] Crane Assembler: Kleber Shirley PhD, Phone: [phone] Manjula CARRION LAB BLOOD ORDERABLES Ana l Result [facility] - 01 * Thyroid Function [place] (10/21/2023 4:20 PM PARTS IDENTIFIER) Pathologist [facility] TSH 0.827 0.450 - 4.500 uIU/mL [facility] - 01 Comment: No apparent thyroid disorder. Additional testing not indicated. In rare instances, Secondary Hypothyroidism as well as Subclinical Hypothyroidism have been reported in some patients with normal TSH values. Blood 10/21/2023 4:20 PM PARTS IDENTIFIER 10/21/2023 Narrative [facility] - 10/22/2023 10:11 AM PARTS IDENTIFIER Performed at: [address] [id number] Crane Assembler: Kleber Shirley PhD, Phone: [phone] Sandra Aviles GLUE SPECIALTY SUPERVISOR LAB BLOOD ORDERABLES Final Result Performing Organization Address [facility] de Phone Number [facility] - 01 * Albumin Creatinine Ratio, Urine (10/21/2023 4:20 PM PARTS IDENTIFIER) Creatinine ur 32.3 Not Estab. mg/dL [facility] - 01 Microalbumin, ur 3.1 Not Estab. ug/mL [facility] - 01 Microalbumin/cre at ratio 10 0 - 29 mg/g creat [facility] - 01 Comment: Normal: 0 - 29 Moderately increased: 30 - 300 Severely increased: >300 Urine 10/21/2023 4:20 PM PARTS IDENTIFIER 10/21/2023 Narrative [facility] - 10/22/2023 10:11 AM PARTS IDENTIFIER Performed at: [facility] [id number] Crane Assembler: Kleber Shirley PhD, Phone: [phone] us Sandra Aviles GLUE SPECIALTY SUPERVISOR LAB URINE ORDERABLES Final Result Performing Organization Address [facility] de Phone Number [facility] - 01 * Lipid panel (10/21/2023 4:20 PM PARTS IDENTIFIER) Cholesterol 184 100 - 199 mg/dL [facility] - 01 Triglycerides 138 0 - 149 mg/dL [facility] - 01 HDL Cholesterol 81 >39 mg/dL [facility] - 01 VLDL 23 5 - 40 mg/dL [facility] - 01 LDL, calculated 80 0 - 99 mg/dL [facility] - 01 Blood 10/21/2023 4:20 PM PARTS IDENTIFIER 10/21/2023 Narrative [facility] - 10/22/2023 10:11 AM PARTS IDENTIFIER Performed at: 01 - [facility] [address] [id number] Crane Assembler: Kleber Shirley PhD, Phone: [phone] Sandra Aviles GLUE SPECIALTY SUPERVISOR LAB BLOOD ORDERABLES Final Result [facility] - 01 from Last 3 Months or Most Recently Relevant to Health Maintenance Insurance [facility] CHOICE PLUS [facility] HMO/PPO Address: [facility] [address] [place], [place] [id number] Care Teams Pulper Relationship Specialty Start Date End Date Demetris Chaudhry DO PCP - General Internal Medicine 02/19/22 Leanne Brown MD Referring Physician Endocrinology Diabetes & Metabolism 05/06/22 Harvinder Sanders Jr., DPM Referring Physician Podiatry 05/07/22 Angeles Dee MD 1 [facility] [place] [address] Consulting Physician Bone Health 10/07/23 [place] [address] [place] [address] DIV ENDOCRINOLOGY, ALESHA [address] [place] [address] Physician Case Aide Physician Case Aide 04/04/24
--- OUTSIDE RECORDS SUMMARY | 2024-11-11 12:47 | XMS_ITS | Encounter Summary ---
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 Not on file Not [...] on filedocumented in this encounter Care Teams Horticultural Agent Relationship Specialty Start Date End Date Demetris Chaudhry DO PCP - General Internal Medicine 02/19/22 Leanne Brown MD Referring Physician Endocrinology Diabetes & Metabolism 05/06/22 Harvinder Sanders Jr., KURT Referring Physician Podiatry 05/07/22 Angeles Dee MD 1 [facility] [place] [address] Consulting Physician Bone Health 10/07/23 Manjula Peguero PA [address] [facility] ENDOCRINOLOGY, ALESHA [address] [place] [address] Physician Radiology Clerk Physician Radiology Clerk 04/04/24 documented as of this encounter
[2024-11-11 13:33] LABS: Basophils Percent Auto 0.3 % (0.2-1.2); Eosinophils Absolute Auto 0.2 K/mm3 (0-0.3); Eosinophils Percent Auto 2.2 % (0-4.4); Hematocrit 42.4 % (42.0-52.0); Immature Granulocyte Absolute 0.03 K/mm3 (0.00-0.031); Immature Granulocyte Percent A 0.3 % (0-0.5); Lymphocytes Percent Auto 20.6 % (18.3-44.2); Mean Corpuscular HGB Conc 30.7 g/dl (32-36); Mean Corpuscular Hemoglobin 28.6 pg (26-34); Mean Corpuscular Volume 93.4 fl (80-100); Mean Platelet Volume 9.2 fl (7.4-10.4); Monocytes Absolute Auto 1.3 K/mm3 (0.1-0.6); Monocytes Percent Auto 13.5 % (2.6-8.5); Neutrophils Absolute Auto 5.8 K/mm3 (1.3-6.7); Neutrophils Percent Auto 63.1 % (45.5-73.1); Platelet Count Result 528 k/mm3 (150-375); Red Blood Count 4.54 M/mm3 (4.6-6.20); Red Cell Distribution Width 13.9 % (11.5-14.5); White Blood Count 9.2 K/mm3 (4.5-10.0)
[2024-11-11 13:59] LABS: CRP 2.8 mg/dL (<1.0)
[2024-11-11 14:50] LABS: Erythrocyte Sedimentation Rate 22 mm/hr (0-20)
== END 2024-11-11 12:27 | disposition home or self-care (01) ==
LOC: ANHLAB 12:27
PROVIDERS: PCP Internal Medicine; Visit Provider Neurological Surgery
DX: L76.82 Other postprocedural complications of skin and subcutaneous tissue (principal)
CPT/HCPCS: 36415; 85025; 85652; 86140

== ENCOUNTER 2025-07-12 13:11 | Emergency (ER) | payer OTHER, SELFPAY ==
--- NOTE | ~2025-07-12 | CT_ITS ---
CT ABDOMEN AND PELVIS WITHOUT CONTRAST Clinical History: flank pain, hematuria Comparison: None Technique: Unenhanced axial images lung bases to symphysis pubis Coronal, sagittal reformats CT images acquired with automatic exposure control for dose reduction DLP: 993 mGy-cm Findings: Without intravenous contrast, sensitivity for detecting visceral parenchymal abnormalities decreased. Lung bases: Clear. Visualized heart and pericardium: Unremarkable. Liver: Unremarkable. Gallbladder: Unremarkable. Spleen: Unremarkable. Pancreas: Unremarkable. Adrenal glands: Unremarkable. Kidneys: Right kidney- No hydronephrosis. No renal stones. Left kidney- No hydronephrosis. No renal stones. Distal esophagus/stomach: Unremarkable. Small bowel loops: Normal caliber and wall thickness. Colon: Normal caliber and wall thickness. Normal RLQ appendix. Nodes: No enlarged nodes. Peritoneum: No ascites. No free intraperitoneal air. Urinary bladder: Diffuse wall thickening. Prostate: Unremarkable. Bones: No acute bony abnormality. Soft tissues: Unremarkable. Unopacified abdominal aorta: No aneurysmal dilatation. IMPRESSION: 1. Bladder wall thickening favoring cystitis. 2. No other acute abnormality. Reviewed, dictated and finalized at location R. SSEMBLY SUPERVISOR
[2025-07-12 13:12] VITALS: BP 142/92; PULSE 96; RESP 16; TEMP 37.1; O2SAT 100
--- NOTE | 2025-07-12 13:45 | ED.MALEGU ---
HPI - Male Genitourinary General Chief complaint: Urogenital-Male <Lis Carballo PA-C - Last Filed: 07/13/25 10:15> Stated complaint: uti <Lis Carballo PA-C - Last Filed: 07/13/25 10:15> Time Seen by Provider: 07/12/25 13:45 <Lis Carballo PA-C - Last Filed: 07/13/25 10:15> Focused HPI: This is a 40 year old male that presents to the ER for urinary issues. Reports urgency, hematuria. Reports right sided flank pain, low grade fever, nausea. Denies vomiting. GENERAL: Well-appearing, well-nourished, and in no acute distress. HEAD: Normocephalic, atraumatic. CHEST: Clear to auscultation. ?No respiratory distress. HEART: Regular rate and rhythm.? NEURO: ?Alert and oriented x3. Patient screened in triage and initial orders placed.? ?Additional care and disposition to be based upon?diagnostic testing and treatment. <Lis Carballo PA-C - Last Filed: 07/13/25 10:15> History of Present Illness HPI Narrative: Agree with HPI. Patient had similar symptoms about a year ago in which he was diagnosed with the UTI. Reports right lower lumbar pain, not flank pain. May be similar to his chronic pains related to his prior back surgery. <Sancho Lorenzana DO - Last Filed: 07/12/25 22:26> Related Data Home medications: Home Medications ?Medication ?Instructions ?Recorded ?Confirmed ?Last Taken ?Type albuterol sulfate 90 mcg/actuation 2 puff inhalation Q4-6H PRN 09/15/19 07/12/25 Unknown History aerosol inhaler (ProAir HFA) Shortness Of Breath Or Wheezing cholecalciferol (vitamin D3) 1,250 1,250 mcg PO WEEKLY 08/27/22 07/12/25 09/19/24 History mcg (50,000 unit) capsule metformin 1,000 mg tablet 1,000 mg PO BID 12/06/22 07/12/25 12/28/23 History insulin lispro 100 unit/mL 5 unit subcut DAILY BLOOD SUGAR 01/20/24 07/12/25 Unknown History subcutaneous pen (Humalog KwikPen (U-100) Insulin) semaglutide 1 mg/dose (4 mg/3 mL) 1 mg subcut WEEKLY 09/02/24 07/12/25 09/16/24 History subcutaneous pen injector (Ozempic) <Lis Carballo PA-C - Last Filed: 07/13/25 10:15> Allergies/Adverse reactions: Allergies Allergy/AdvReac Type Severity Reaction Status Date / Time aloe Allergy Mild Rash Verified 12/09/24 10:02 sumatriptan (From Imitrex) AdvReac Severe Difficulty Verified 12/09/24 10:02 Swallowing <Lis Carballo PA-C - Last Filed: 07/13/25 10:15> Review of Systems Review of Systems: Gen.: Denies fevers or chills Eyes: Denies eye pain or visual change ENT: Denies congestion Respiratory: Denies shortness of breath or cough CV: Denies chest pain or palpitations GI: Denies abdominal pain nausea, emesis or diarrhea denies burning, urgency, frequency or hematuria Musculoskeletal: Denies back pain or muscle pain Neuro: Denies numbness, tingling, weakness or focal weakness Skin: Denies rash Except as documented, all other systems reviewed and negative <Sancho Lorenzana DO - Last Filed: 07/12/25 22:26> [facility] Past Medical History Medical History: Medical History Orthostasis Spondylolisthesis, lumbar region Diabetes type 2, controlled Acute frontal sinusitis Left knee pain Dizziness Viral pharyngitis C. difficile diarrhea Diarrhea Dehydration Gynecomastia Left radial fracture Asthma Asthenia Nausea & vomiting Pneumomediastinum COVID-19 Influenza A Vitamin D deficiency Acute hyperkalemia Herpes labialis Degenerative disc disease Plantar wart of left foot Viral illness Injection (erythema) Steroid injection 03/2019 Chronic pain Transaminitis Allergies Elevated liver enzymes Hyperkalemia Type 2 diabetes mellitus <KELLY Silva Last Filed: 07/13/25 10:15> Surgical History Surgical History: Surgical History History of lumbar fusion <Lis Carballo PA-C - Last Filed: 07/13/25 10:15> Family History Family History: Family History Sibling Family history of blood dyscrasia Mother Cancer Father Patient's father is in good health Hypertension Other Lupus Grandparent Heart disease Diabetes mellitus <Lis Carballo PA-C - Last Filed: 07/13/25 10:15> Social History Social History: Social History Social History: Live house with 2 children and 1 dog. No smoking, drinking or drug use. caffeine-daily Second hand tobacco smoke exposure: No Alcohol intake: never Alcohol use details: no drink in 6 yrs Substance use: never Substance use type: does not use Do You Feel Safe in your Home?: Yes Lack of Transportation: No Lack of Food: Never True Current Housing: I Have Housing Concerned About Future Housing: No Difficulty Paying Gas/Electric Bills: No Difficulty Paying for Meds: No Currently Unemployed: No Education: Bachelor's Degree Difficulty w/ Childcare or Family Care: No Living arrangements: with family Additional living arrangements comments: Spiritual care concerns: No <Lis Carballo PA-C - Last Filed: 07/13/25 10:15> Exam Narrative: APPEARANCE: No acute distress, nontoxic, resting in bed EYES: EOMI HEENT: Normocephalic, atraumatic, OMM RESPIRATORY: No respiratory distress Clear to auscultation bilaterally with no rhonchi wheezing or rales. CARDIOVASCULAR: Regular rate and rhythm without murmurs rubs or gallops. ABDOMINAL: Soft, mild suprapubic tenderness to palpation, nondistended, no rebound or guarding MUSCULOSKELETAl: Moves all extremities. No clubbing, cyanosis or edema. NEURO: Awake and alert. Following commands, speech normal, no focal deficits SKIN:: Warm, dry. No rashes lesions or abrasions PSYCHIATRIC: Normal affect/mood, <Sancho Lorenzana DO - Last Filed: 07/12/25 22:26> Course Vital Signs Vital signs: Vital Signs Temperature 98.8 F 07/12/25 13:12 Pulse Rate 96 07/12/25 13:12 Respiratory Rate 16 07/12/25 13:12 Blood Pressure 142/92 H 07/12/25 13:12 Pulse Oximetry 100 07/12/25 13:12 Temperature 99.0 F 07/12/25 14:57 Pulse Rate 89 07/12/25 14:57 Respiratory Rate 20 07/12/25 14:57 Blood Pressure 140/96 H 07/12/25 14:57 Pulse Oximetry 97 07/12/25 14:57 Oxygen Delivery Room Air 07/12/25 14:57 <Lis Carballo PA-C - Last Filed: 07/13/25 10:15> Vital Signs Temperature 98.8 F 07/12/25 13:12 Pulse Rate 96 07/12/25 13:12 Respiratory Rate 16 07/12/25 13:12 Blood Pressure 142/92 H 07/12/25 13:12 Pulse Oximetry 100 07/12/25 13:12 Temperature 99.0 F 07/12/25 14:57 Pulse Rate 89 07/12/25 14:57 Respiratory Rate 20 07/12/25 14:57 Blood Pressure 140/96 H 07/12/25 14:57 Pulse Oximetry 97 07/12/25 14:57 Oxygen Delivery Room Air 07/12/25 14:57 <Sancho Lorenzana DO - Last Filed: 07/12/25 22:26> MDM - Male Genitourinary MDM Narrative Medical decision making narrative: 40-year-old male Presenting for dysuria and hematuria. On initial evaluation patient was in no acute distress afebrile, hemodynamic stable. Differentials include but are not limited to: UTI, urinary retention, ureterolithiasis, constipation, appendicitis, enterocolitis, colitis, cancer, testicular torsion Notable exam findings: Notable lab findings: Leukocytosis at 14, CMP without significant abnormalities. UA likely consistent with a UTI with positive nitrites. Notable imaging findings: CT abdomen/pelvis was consistent with cystitis. Patient's symptoms were much better by the time he arrived in the ED. UA consistent with a UTI and CT consistent with a cystitis. Patient did have this before about a year ago. He will be started on cefpodoxime. He was advised to follow-up with urology given the recurrent hematuria in the event that he needs a cystoscopy. Patient was agreeable to this plan. Given strict return precautions. <Sancho Lorenzana DO - Last Filed: 07/12/25 22:26> Medical Records Attestation: I reviewed the patient's medical records. <Sancho LiconaDO brittaney - Last Filed: 07/12/25 22:26> Lab Data Attestation: I reviewed the patient's lab results. <Sancho DO Harriett - Last Filed: 07/12/25 22:26> Result diagrams: 07/12/25 15:03 07/12/25 15:03 <Lis Carballo PA-C - Last Filed: 07/13/25 10:15> Labs: Lab Results 07/12/25 07/12/25 Range/Units 14:45 15:03 WBC 14.4 H (4.5-10.0) K/mm3 RBC 4.87 (4.6-6.20) M/mm3 Hgb 14.3 (14.0-18.0) g/dL Hct 44.5 (42.0-52.0) % MCV 91.4 (80-100) fl MCH 29.4 (26-34) pg MCHC 32.1 (32-36) g/dl RDW 13.1 (11.5-14.5) % Plt Count 471 H (150-375) k/mm3 MPV 9.3 (7.4-10.4) fl Immature Gran % (Auto) 0.3 (0-0.5) % Neut % (Auto) 78.2 H (45.5-73.1) % Lymph % (Auto) 12.0 L (18.3-44.2) % [place] % (Auto) 8.2 (2.6-8.5) % Eos % (Auto) 1.1 (0-4.4) % Baso % (Auto) 0.2 (0.2-1.2) % Lymph # (Auto) 1.73 (0.9-3.2) K/mm3 [place] # (Auto) 1.2 H (0.1-0.6) K/mm3 Eos # (Auto) 0.2 (0-0.3) K/mm3 Baso # (Auto) 0.0 (0.0-0.1) K/mm3 Abs Immat Gran (auto) 0.05 H (0.00-0.031) K/mm3 Absolute Neuts (auto) 11.3 H (1.3-6.7) K/mm3 Absolute Nucleated RBC 0.000 (0.0-0.012) K/mm3 Nucleated RBC % 0.0 (0.0-0.2) % Sodium 135 L (137-145) mmol/L Potassium 4.3 (3.4-5.0) mmol/L Chloride 98 (98-107) mmol/L Carbon Dioxide 29 (22-30) mmol/L Anion Gap 8 (4-12) mmol/L BUN 12 D (9-20) mg/dL Creatinine 0.88 (0.7-1.3) mg/dL Estim Creat Clear Calc 122 ml/min Estimated GFR > 60 (59 - ) Glucose 112 H (65-110) mg/dL Calcium 9.1 (8.4-10.2) mg/dL Total Bilirubin 0.7 (0.2-1.3) mg/dL AST 34 (17-59) U/L ALT 20 (6-50) U/L Alkaline Phosphatase 72 (38-126) U/L Total Protein 8.1 (6.3-8.2) g/dL Albumin 4.8 (3.5-5.1) g/dL Urine Color Dark yellow (Yellow) Urine Appearance Clear (Clear) Urine pH 7.0 (5.0-9.0) Ur Specific [place] 1.006 (1.001-1.035) Urine Protein 1+ H (Negative) mg/dL Urine Glucose (UA) Negative (Negative) mg/dL Urine Ketones Negative (Negative) mg/dL Ur Blood (Man) 3+ H (Negative) Urine Nitrate Positive H (Negative) Urine Bilirubin Negative (Negative) Urine Urobilinogen 1.0 (<2.0) mg/dL Leukocyte Esterase Rfl 2+ H (Negative) KEO/UL Urine RBC 21-50 H (0-2) /hpf Urine WBC 51-100 H (0-3) /hpf Ur Squamous Epith Cells None seen (Few) /hpf Urine Bacteria Rare /hpf Urine Casts 0-2 <Lis Carballo PA-C - Last Filed: 07/13/25 10:15> Lab Results 07/12/25 07/12/25 Range/Units 14:45 15:03 WBC 14.4 H (4.5-10.0) K/mm3 RBC 4.87 (4.6-6.20) M/mm3 Hgb 14.3 (14.0-18.0) g/dL Hct 44.5 (42.0-52.0) % MCV 91.4 (80-100) fl MCH 29.4 (26-34) pg MCHC 32.1 (32-36) g/dl RDW 13.1 (11.5-14.5) % Plt Count 471 H (150-375) k/mm3 MPV 9.3 (7.4-10.4) fl Immature Gran % (Auto) 0.3 (0-0.5) % Neut % (Auto) 78.2 H (45.5-73.1) % Lymph % (Auto) 12.0 L (18.3-44.2) % [place] % (Auto) 8.2 (2.6-8.5) % Eos % (Auto) 1.1 (0-4.4) % Baso % (Auto) 0.2 (0.2-1.2) % Lymph # (Auto) 1.73 (0.9-3.2) K/mm3 [place] # (Auto) 1.2 H (0.1-0.6) K/mm3 Eos # (Auto) 0.2 (0-0.3) K/mm3 Baso # (Auto) 0.0 (0.0-0.1) K/mm3 Abs Immat Gran (auto) 0.05 H (0.00-0.031) K/mm3 Absolute Neuts (auto) 11.3 H (1.3-6.7) K/mm3 Absolute Nucleated RBC 0.000 (0.0-0.012) K/mm3 Nucleated RBC % 0.0 (0.0-0.2) % Sodium 135 L (137-145) mmol/L Potassium 4.3 (3.4-5.0) mmol/L Chloride 98 (98-107) mmol/L Carbon Dioxide 29 (22-30) mmol/L Anion Gap 8 (4-12) mmol/L BUN 12 D (9-20) mg/dL Creatinine 0.88 (0.7-1.3) mg/dL Estim Creat Clear Calc 122 ml/min Estimated GFR > 60 (59 - ) Glucose 112 H (65-110) mg/dL Calcium 9.1 (8.4-10.2) mg/dL Total Bilirubin 0.7 (0.2-1.3) mg/dL AST 34 (17-59) U/L ALT 20 (6-50) U/L Alkaline Phosphatase 72 (38-126) U/L Total Protein 8.1 (6.3-8.2) g/dL Albumin 4.8 (3.5-5.1) g/dL Urine Color Dark yellow (Yellow) Urine Appearance Clear (Clear) Urine pH 7.0 (5.0-9.0) Ur Specific [place] 1.006 (1.001-1.035) Urine Protein 1+ H (Negative) mg/dL Urine Glucose (UA) Negative (Negative) mg/dL Urine Ketones Negative (Negative) mg/dL Ur Blood (Man) 3+ H (Negative) Urine Nitrate Positive H (Negative) Urine Bilirubin Negative (Negative) Urine Urobilinogen 1.0 (<2.0) mg/dL Leukocyte Esterase Rfl 2+ H (Negative) KEO/UL Urine RBC 21-50 H (0-2) /hpf Urine WBC 51-100 H (0-3) /hpf Ur Squamous Epith Cells None seen (Few) /hpf Urine Bacteria Rare /hpf Urine Casts 0-2 <Sancho Lorenzana DO - Last Filed: 07/12/25 22:26> Imaging Data Attestation: I personally reviewed and interpreted this imaging study as follows: <Sancho Lorenzana DO - Last Filed: 07/12/25 22:26> Radiologist's impression: Impressions Abdomen/Pelvis CT 07/12/25 14:22 IMPRESSION: 1. Bladder wall thickening favoring cystitis. 2. No other acute abnormality. <DO Vinod Hutson Last Filed: 07/12/25 22:26> Critical Care Time Critical Care Time Critical Care Time: No <Lis Carballo PA-C - Last Filed: 07/13/25 10:15> Discharge Plan Discharge Clinical Impression: Cystitis Type 2 diabetes mellitus Qualifiers: Diabetes mellitus longterm insulin use: without longterm use Diabetes mellitus complication status: without complication Qualified Code(s): E11.9 - Type 2 diabetes mellitus without complications <KELLY Silva Last Filed: 07/13/25 10:15> Patient Disposition: Home <KELLY Silva Last Filed: 07/13/25 10:15> Condition: Stable <KELLY Silva Last Filed: 07/13/25 10:15> Instructions: Antibiotic Form, Urinary Tract Infection in Men (ED) <KELLY Silva Last Filed: 07/13/25 10:15> Additional Instructions: You were found to have a UTI. Takes cefpodoxime as prescribed. Follow up with your PCP the next week for re-evaluation. I would also recommend reaching out to your urologist given the recurrent blood in your urine, as you may require a cystoscopy. Return to the ED for any new or worsening symptoms. <KELLY Silva Last Filed: 07/13/25 10:15> Patient Language: British <Lis Carballo PA-C - Last Filed: 07/13/25 10:15> Prescriptions: New cefpodoxime 200 mg tablet 200 mg PO BID Qty: 20 0RF Rx Instructions: must administer with a meal/food No Action albuterol sulfate [ProAir HFA] 90 mcg/actuation HFA aerosol inhaler 2 puff INHALATION Q4-6H PRN (Reason: Shortness Of Breath Or Wheezing) (DME) blood-glucose meter [Blood Glucose Monitoring] Kit See Rx Instructions .Route Qty: 1 0RF Rx Instructions: As directed (DME) Blood Glucose Test Strip See Rx Instructions .Route Qty: 50 0RF Rx Instructions: As directed (DME) lancets 32 gauge misc See Rx Instructions .Route Qty: 100 0RF Rx Instructions: As directed cholecalciferol (vitamin D3) 1,250 mcg (50,000 unit) capsule 1,250 mcg PO WEEKLY Rx Instructions: thursday Ubrelvy 50 mg tablet 50 mg PO ONCE Qty: 10 0RF Rx Instructions: as a single dose; may repeat once in >=2 hours after first dose if needed insulin lispro [Humalog KwikPen Insulin] 100 unit/mL insulin pen 5 unit subcut DAILY Rx Instructions: 1-4 UNITS SS W CARBS metformin 1,000 mg tablet 1,000 mg PO BID Ozempic 1 mg/dose (4 mg/3 mL) pen injector 1 mg SUBCUT WEEKLY trazodone 50 mg tablet 50 mg PO QHS PRN (Reason: insomnia) Qty: 90 1RF duloxetine 60 mg capsule,delayed release(DR/EC) 60 mg PO DAILY Qty: 90 1RF <Lis Carballo PA-C - Last Filed: 07/13/25 10:15> Follow-up/Referrals: Demetris Chaudhry DO [Primary Care Provider, Internal Medicine] <Lis Carballo PA-C - Last Filed: 07/13/25 10:15>
[2025-07-12 14:57] VITALS: BP 140/96; PULSE 89; RESP 20; TEMP 37.2; O2SAT 97
[2025-07-12 15:07] LABS: Add Urine Microscopic? YES; Appearance Urine Clear (Clear); Glucose Urine UA Negative (Negative); Leukocyte Esterase Ur 2+ LEU/UL (Negative); Nitrate Urine Positive (Negative); Non Pathogenic Casts 0-2; Specific Grav Ur 1.006 (1.001-1.035)
[2025-07-12 15:11] LABS: Hematocrit 44.5 % (42.0-52.0); Hemoglobin 14.3 g/dL (14.0-18.0); Immature Granulocyte Percent A 0.3 % (0-0.5); Lymphocytes Absolute Auto 1.73 K/mm3 (0.9-3.2); Mean Corpuscular HGB Conc 32.1 g/dl (32-36); Mean Corpuscular Hemoglobin 29.4 pg (26-34); Mean Corpuscular Volume 91.4 fl (80-100); Nucleated Red Blood Cells Absolute Auto 0.000 K/mm3 (0.0-0.012); Nucleated Red Blood Cells Perc 0.0 % (0.0-0.2); Platelet Count Result 471 k/mm3 (150-375); Red Blood Count 4.87 M/mm3 (4.6-6.20); White Blood Count 14.4 K/mm3 (4.5-10.0)
[2025-07-12 15:29] LABS: Alanine Aminotransferase 20 U/L (6-50); Albumin Level 4.8 g/dL (3.5-5.1); Alkaline Phosphatase 72 U/L (38-126); Anion Gap 8 mmol/L (4-12); Aspartate Amino Transferase 34 U/L (17-59); Bilirubin,Total 0.7 mg/dL (0.2-1.3); Blood Urea Nitrogen 12 mg/dL (9-20); Calcium 9.1 mg/dL (8.4-10.2); Carbon Dioxide 29 mmol/L (22-30); Chloride 98 mmol/L (98-107); Estimated CRCL calculation 122 ml/min; Estimated Glomerular Filt Rate > 60; Glucose 112 mg/dL (65-110); Potassium 4.3 mmol/L (3.4-5.0); Sodium 135 mmol/L (137-145); Total Protein 8.1 g/dL (6.3-8.2)
--- OUTSIDE RECORDS SUMMARY | 2025-07-13 11:52 | XMS_ITS | Encounter Summary ---
Author Organization [facility] Address [address] [place] [address] Phone Care Team Providers Care Patient Escort Name Role Phone Demetris Chaudhry DO Primary Care Provider Leanne Brown MD Unavailable [phone] Tommy Devine DPM, Gabriel Unavailable [phone] Angeles Dee MD Unavailable Manjula Goode Unavailable [phone] Encounter Details Date Type Department Care Team [...] Industry Job Start Date Job End Date [employer] Not on file Not on file Not [...] on filedocumented in this encounter Care Teams Patient Escort Relationship Specialty Start Date End Date Emileexaviersamantha Demetris Le DO PCP - General Internal Medicine 02/19/22 Leanne Brown MD Referring Physician Endocrinology Diabetes & Metabolism 05/06/22 Harvinder Sanders Jr., DPDakota Referring Physician Podiatry 05/07/22 Angeles Dee MD [address] [facility] [place] [address] Consulting Physician Bone Health 10/07/23 Manjula Goode PA [address] [facility], [place] [address] [place] [id number] Physician Publication Editor Physician Publication Editor 04/04/24 documented as of this encounter
--- OUTSIDE RECORDS SUMMARY | 2025-07-13 11:52 | XMS_ITS | Clinical Summary ---
Author Organization [facility] Address [address] [place] [address] Care Team Providers Care Ticket Printer And Tagger Name Role Phone Unavailable Primary Care Provider Unavailabl e Source Comments [facility],non-owned Affiliates and Associated Physician Practices is amultiple site organization consisting of ambulatory clinics and hospital sitesin [place], [place] and [place]. This disclosure is being madepursuant to the Care Everywhere program and may not contain all information available regarding this patient. Last updated 18.[facility] Allergies No known active allergies Medications * Be aware that medications may not be up to date on this document. Alwaysverify current medications with the patient. No known medications Active Problems No known active problems Immunizations Immunization Administration Dates Next Due INFLUENZA VACCINE, QUADR. (F LUZONE; FLULAVAL; FLUARIX; AFLURIA QUADRIVALENT; 6MO+), 0.5 ML (IIV4) 06/23/2018 Social History Tobacco Use Types Packs/Day Years Used Date Smoking Tobacco: Never Assessed Sex and Gender Information Value Date Recorded Sex Assigned at Not on file Legal Sex Male 4:05 PM CDT Gender Identity Not on file Sexual Orientation Not on file Plan of Treatment Health Maintenance Due Date Last Done Comments HIV SCREENING 2002 HEPATITIS C SCREENING 06/09/2005 DTAP/TDAP/TD VACCINES (1 - Tdap) 2006 HEPATITIS B VACCINE (1 of 3 - 19+ 3-dose series) 2006 HPV VACCINE (1 - 3-dose SCDM series) 2014 DEPRESSION SCREENING 09/07/2024 COVID-19 VACCINE ( - 2023-2 5 season) 2025 INFLUENZA VACCINE (#1) 2025 06/23/2018 ZOSTER VACCINE (1 of 2) 2037 HIB VACCINE Aged Out No longer eligi ble based on patient's age to complete this topic MENINGOCOCCAL (Group B) VACC INE SHARED DECISION-MAKING Aged Out No longer eligibl e based on patient's age to complete this topic MENINGOCOCCAL GROUPS A/C/Y/W VACCINE Aged Out No longer eligible b ased on patient's age to complete this topic PNEUMOCOCCAL VACCINE Aged Out No long er eligible based on patient's age to complete this topic Insurance [facility]
--- OUTSIDE RECORDS SUMMARY | 2025-07-13 11:52 | XMS_ITS | Clinical Summary ---
Author Organization [facility] Address [address] [place] [address] Care Team Providers Care Physicians Assistant Name Role Phone Demetris Chaudhry DO Primary Care Provider Leanne Brown MD Unavailable [phone] Tommy Devine DPM, Gabriel Unavailable Angeles Dee MD Unavailable [phone] Manjula Goode Unavailable [phone] Allergies Active Allergy Reactions Criticality Noted Date [...] D-3) 2000 unit capsule 1 daily Active ubrogepant (Ubrelvy) 50 mg tablet Take [...] by mouth daily 30 tablet 1 024 Active ergocalciferol (VITAMIN D) 50,000 unit capsuleIndicatio ns:Vitamin D deficiency Take one capsule by mouth Weekly [address] (CYMBALTA) 60 mg capsule Take 1 capsule (60 mg total) by mouth daily 024 Active blood glucose diagnostic (glucose blood) stripIndications :Type 2 diabetes mellitus with hyperglycemia, without long-term current use of insulin ([facility]) Check blood sugar four times a day or as directed 200 each 024 Active baclofen (LIORESAL) 10 mg tablet 024 Active traMADoL (ULTRAM) 50 mg tablet 024 Active ondansetron ODT (ZOFRAN-ODT) 4 mg disintegrating tabletIndication s:Type 2 diabetes mellitus with hyperglycemia, with long-term current use of insulin ([facility]) Take 1 tablet (4 mg total) by mouth every 8 (eight) hours as needed for nausea or vomiting 20 tablet 3 024 Active pen needle, diabetic 32 gauge x needleIndication s:Type 2 diabetes mellitus with hyperglycemia, with long-term current use of insulin ([facility]) Use pen needles with insulin injection up to 4 times a day. 400 each 3 024 Active cyclobenzaprine (FLEXERIL) 5 mg tablet 025 Active traZODone (DESYREL) 50 mg tablet 025 Active insulin pump cart,auto,BT,G6/ L (Omnipod 5, G6/Nnamdi 2 Plus,) cartridge Change pod every 3 days. 10 each 025 Active insulin hop worker cart,BT,G6/L2-cn tr (Omnipod 5 Intro,G6/Ilbtj9N waleska,) cartridge Change Pod every 3 days. 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), managed as type 1 ([facility]) To change POD every 3 days 10 each 025 Active glucagon (Baqsimi) 3 mg/actuation spray,non-aeroso l BAQSIMI 3 MG/ACTUATION NASAL SPRAY 024 Active LANTUS 100 unit/mL (3 mL) pen for injection Use for insulin pump backup only 025 Active semaglutide (Ozempic) 1 mg/dose (4 mg/3 mL) pen injector injectionIndicat ions:Type 2 diabetes mellitus with hyperglycemia, with long-term current use of insulin ([facility]) INJECT SUBCUTANEOUSLY 1 MG EVERY WEEK 9 mL 3 025 Active insulin lispro (HumaLOG, ADMELOG) 100 unit/mL pen for injectionIndicat ions: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 MAX 30 UNITS DAILY. 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 MDD 30 units. 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 Assessment & Plan (01/26/2025 10:46 AM CDT): - Diabetes is complicated by hyperglycemia. Control is above goal. Most recent c-peptide of 0.7 indicates beta cell function depletion. In addition, he has +GAD65 and islet antibodies indicating T1 diabetes. As he was previously diagnosed as T2, his current regimen is a mixture of management for both T2 and T1. However, given most recent c-peptide, his treatment will likely become more T1 oriented as his insulin requirements with increase. Lab Results Component Value Date HGBA1C 7.3 (A) 01/26/2025 Per [place] [employer], goal A1c is less 7% without significant hypoglycemia. - Management Goal: A1c <7% - Continue all orals for now. Will consult with Dr. Brown on how to safely adjust/reduce oral regimen. - Continue Ozempic 1 mg weekly. He declined decreasing his dose today. Plan to continue GLP1 therapy even with T1 diagnosis to help with glycemic control and prevent insulin resistance. - Continue glargine/Toujeo 6 units daily. - Tighten Humalog ICR 1:30 with breakfast + lunch. Continue 1:40 with dinner and current sliding scale. - Continue management with Nnamdi 3 CGM. - He is interested in insulin pump management. Given handouts and brief discussion today. Will schedule with CDE for further review and education. - Advised bolusing 10-15 minutes before each meal. - Advised annual dilated eye exam - up to date. - Advised checking blood glucose before driving - Discussed hypoglycemia risk, and treatment such as the rule of 15s and the use of glucagon - Discussed sick rules, checking ketones if > 300 or if ill. - Annual labs are up to date. Repeat renal function today. - Update me on consistent glycemia excursions or if there is any hypoglycemia. - Advised and ensured that I am available via phone or MyChart if they have any concerns for hypo/hyperglycemia, medication refills, etc. [facility] (current) use of insulin 01/26/2025 Positive VITALY antibody 01/05/2024 Overview (04/05/2024): Images [...] the future. Hypercalcemia 01/05/2024 Assessment & Plan (04/30/2025 7:59 PM CDT): Seemingly resolved, but will monitor on occasion. Assessment & Plan (10/16/2024 7:38 PM LAWN CARE TECHNICIAN): Still needs f/u labs as ordered last fall. Assessment & Plan (01/19/2024 2:40 PM CDT): - Calcium 10.4 on most recent lab work 10/21/2023 - Renal function sent [facility] Assessment & Plan (01/05/2024 3:56 PM CDT): [...] Vitamin D deficiency 08/25/2022 Assessment & Plan (04/30/2025 7:57 PM CDT): Continue long-term supplement ; recent Ca and 25-D levels fine. Assessment & Plan (10/16/2024 7:38 PM LAWN CARE TECHNICIAN): Continue long-term supplement but with slightly high [...] weekly Assessment & Plan (10/07/2023 8:18 PM LAWN CARE TECHNICIAN): Continue long-term supplement Assessment & Plan (07/07/2023 10:53 AM CDT): -continue same vitamin-D supplementation of 50,000 international units weekly -Will repeat level Assessment & Plan (03/10/2023 8:47 PM CDT): Continue long-term supplement Assessment & Plan (12/03/2022 7:51 PM CDT): Continue correction supplements. 08/2022- Vitamin D 14 Assessment & Plan (08/26/2022 7:14 AM LAWN CARE TECHNICIAN): Vitamin D level 14.6 on 08/12/22. Needs to restart supplements: - 50,000 units weekly - 2,000 units daily Polyarthralgia 05/06/2022 Rheumatoid factor positive 05/06/2022 Assessment & Plan (03/10/2023 8:46 PM CDT): With polyarthralgias. Needs rheum evaluation Backache 05/06/2022 Has immunity to COVID-19 virus 05/06/2022 Overview (05/06/2022): Pfizer vaccine x 3 Assessment & Plan (08/25/2022 10:16 AM LAWN CARE TECHNICIAN): Fully vaccinated, eligible for booster. Assessment & Plan (05/06/2022 1:34 PM CDT): Fully vaccinated, eligible for booster. Elevated transaminase level 05/06/2022 Assessment & Plan (03/10/2023 8:46 PM CDT): Needs optimal glycemic control Vitiligo 05/06/2022 Assessment & Plan (05/07/2022 11:09 AM CDT): Related to autoimmune disorder Autoimmune disease 05/06/2022 Overview (10/10/2024): Vitiligo and history of positive RA; positive VITALY-65 Ab Assessment & Plan (04/30/2025 7:58 PM CDT): Vitiligo, history of positive rheumatoid factor. Positive VITALY-65 Ab. Needs ongoing surveillance Assessment & Plan (10/16/2024 7:37 PM LAWN CARE TECHNICIAN): Vitiligo, history of positive rheumatoid factor. Positive VITALY-65 Ab. Needs ongoing surveillance Assessment & Plan (04/08/2024 9:06 PM CDT): Vitiligo, history of positive rheumatoid factor. Positive VITALY-65 Ab. Needs ongoing surveillance Assessment & Plan (10/07/2023 8:17 PM LAWN CARE TECHNICIAN): Vitiligo and history of positive rheumatoid factor. Needs ongoing surveillance Assessment & Plan (07/07/2023 10:53 AM CDT): -he has + RF -Has been referred for rheumatology evaluation -Will also check celiac screen Assessment & Plan (03/10/2023 8:46 PM CDT): Vitiligo and history of positive rheumatoid factor. Needs ongoing surveillance Assessment & Plan (08/26/2022 12:54 AM LAWN CARE TECHNICIAN): Vitiligo and history of positive rheumatoid factor. Continue with surveillance. Assessment & Plan (05/07/2022 8:43 AM CDT): Vitiligo and history of positive rheumatoid factor. Needs ongoing surveillance Hyperkalemia Overview (05/07/2022): Normal adrenal function and now off lisinopril Assessment & Plan (01/26/2025 10:47 AM CDT): - Repeat renal function today Assessment & Plan (05/07/2022 11:22 AM CDT): Likely related to diabetes, but currently off lisinopril and need to follow Resolved Problems Problem Noted Date Diagnosed Date Resolved Date Type 2 diabetes mellitus with hyperglycemia 05/05/2022 01/26/2025 Overview (04/05/2024): Images from the original note were not included. Diagnosed 201510/21/2023 - C-peptide 1.5 Assessment & Plan (10/16/2024 7:40 PM LAWN CARE TECHNICIAN): Overall reasonably stable, but prone to higher [...] Component Value Date HGBA1C 6.8 06/21/2024 Per [place] [employer], goal A1c is less 7% without significant hypoglycemia. - New Regimen: Metformin 1,000 mg BID Jardiance 25 mg daily Pioglitazone 45 mg daily Increase Ozempic 1 mg weekly Glargine 5 units once daily Loosen Humalog ICR 1:40 plus sliding scale three times daily - Continue management with ControlScan Nnamdi 3 CGM. - At next visit, [...] that I am available via phone or POWhart if they have any concerns for hypo/hyperglycemia, [...] Component Value Date HGBA1C 9.6 01/05/2024 Per [place] [employer], goal A1c is less 7% [...] Component Value Date HGBA1C 9.6 01/05/2024 Per [place] [employer], goal A1c is less 7% [...] that I am available via phone or POWhart if they have any concerns for hypo/hyperglycemia, medication refills, etc. Assessment & Plan (10/07/2023 8:18 PM LAWN CARE TECHNICIAN): Overall reasonably stable, but prone to evening [...] BG. Assessment & Plan (08/26/2022 12:52 AM LAWN CARE TECHNICIAN): Fasting sugars above goal. - Increase pioglitazone [...] Return visit 3 months to see the BILLING MANAGER/PA, 6 months to see me. Assessment & Plan (05/07/2022 8:43 AM CDT): Intelligent, motivated and will benefit from more advanced Education today. 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 04/12/2025 11:00 AM CDT Clinical Support [facility] [address] [place] [address] [place] [address] Connie Estrada RN 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), managed as type 1 (HCC) (Primary Dx) from Last 3 Months Immunizations Immunization Administration [...] (attention deficit disorder) childhood Migraines Diabetes mellitus Family History Medical History Relation Name Comments [...] Passive Smoke Exposure: Never Smokeless Tobacco: Never Tobacco Cessation:Counseling Given: Not Answered Sex and Gender Information Value Date Recorded Sex Assigned at Not on file Legal Sex Male 11:24 AM CDT Gender Identity Not on file Sexual Orientation Not on file 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 Not on file Not on file Not o n file Last Filed Vital Signs Vital Sign Reading Time Taken Comments Blood Pressure 122/76 01/26/2025 9:30 AM CDT Pulse 74 01/26/2025 9:30 AM CDT Temperature 36.9 C (98.4 F) 01/26/2025 9:30 AM CDT Respiratory Rate - - Oxygen Saturation 99% 09/01/2023 10:52 AM LAWN CARE TECHNICIAN Inhaled Oxygen Concentration - - Weight 96.3 kg (212 lb 6.4 oz) 01/26/2025 9:30 A M CDT Height 191.8 cm (6' 3.5) 01/26/2025 9:30 AM CDT Body Mass Index 26.2 01/26/2025 9:30 AM CDT Plan of Treatment Health Maintenance Due Date Last Done Comments Depression Screening 1987 Foot Exam 1987 Hepatitis C Screening 1987 Dilated Eye Exam 1997 Varicella Vaccines (1 of 2 - 13+ 2-dose series) 2000 Hepatitis B Screening 2005 Regular Well Visit/Exam 18-64 2005 Pneumococcal vaccine <65 (1 of 2 - PCV) 2006 HPV Vaccines (1 - 3-dose SCD M series) 2014 Covid-19 Vaccine ( - 2024-2 6 season) 2025 07/26/2021, 11/27/2020, 11/06/2020 Influenza Vaccine (#1) 2025 , 07/03/2021, 06/21/2020, Additional history exists Hemoglobin A1C 07/29/2025 01/26/2025, 06/07, 01/05/2024, Additional history exists Albumin Creatinine Ratio, Urine 12/01/2025 , 10/21/2023 Lipid Panel 12/01/2025 12/01/2024, 10/21/2023 TSH Level 12/01/2025 12/01/2024, 10/08, 08/22/2022 eGFR 01/26/2026 01/26/2025, 11/06, 01/25/2024, Additional history exists DTaP/Tdap/Td Vaccine (2 - Td or Tdap) 12/20/2028 12/20/2018 Procedures Procedure Name Priority Date/Time Associated Diagnosis Comments RENAL FUNCTION PANEL Routine 01/26/2025 10:27 AM CDT 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), managed as type 1 (HCC) POCT HEMOGLOBIN A1C Routine 01/26/2025 9 :36 AM CDT 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), managed as type 1 (HCC) LIPID PANEL Routine 12/01/2024 9:58 AM CDT Type 2 diabetes mellitus with hyperglycemia, with long-term current use of insulin (HCC) [E11.65, Z79.4] ALBUMIN CREATININE RATIO, URINE Routine 12/01/2024 9:58 AM CDT Type 2 diabetes mellitus with hyperglycemia, with long-term current use of insulin (HCC) [E11.65, Z79.4] TSH Routine 12/01/2024 9:58 AM CDT Type 2 diabetes mellitus with hyperglycemia, with long-term current use of insulin (HCC) [E11.65, Z79.4] from Last 3 Months or Most Recently Relevant to Health Maintenance Results * (ABNORMAL) Renal function panel (01/26/2025 10:27 AM CDT) Calcium 9.8 8.6 - 10.3 mg/dL [facility] Sodium 137 135 - 145 mmol/L [facility] Potassium 4.9 3.3 - 5.1 mmol/L [facility] Chloride 100 95 - 107 mmol/L [facility] CO2 Content 26 21 - 29 mmol/L [facility] Creatinine 0.95 0.70 - 1.30 mg/dL [facility] Glucose 154(H) 64 - 99 mg/dL [facility] Comment: NONFASTING GLUCOSE RANGE = 64-199 mg/dL FASTING GLUCOSE 64 - 99 = NORMAL FASTING GLUCOSE 100 - 125 = IMPAIRED FASTING GLUCOSE FASTING GLUCOSE >=126 = PROVISIONAL DIAGNOSIS OF DIABETES BUN 13 7 - 23 mg/dL [facility] Albumin 4.5 3.5 - 5.2 g/dL [facility] Phosphorus 3.8 2.3 - 4.5 mg/dL [facility] eGFR >90.0 >60.0 mL/min/1.7 3 m2 [facility] Blood 01/26/2025 10:2 7 AM CDT 01/26/2025 10:54 AM CDT Manjula Peguero [facility] LAB BLOOD ORDERABLE S Final Result [facility] * (ABNORMAL) POCT hemoglobin A1c (01/26/2025 9:36 AM CDT) Hemoglobin A1C, POC 7.3(A) 4.0 - 5.6 % Blood 01/26/2025 9:36 AM CDT Manjula CARRION POINT OF CARE TEST ORDERABLES Final Result * Albumin Creatinine Ratio, Urine (12/01/2024 9:58 AM CDT) Pathologist [facility] [place] Creatinine ur 81.4 Not Estab. mg/dL [facility] - 01 Microalbumin, ur 4.1 Not Estab. ug/mL [facility] - 01 Microalbumin/cre at ratio 5 0 - 29 mg/g creat [facility] - 01 Comment: Normal: 0 - 29 Moderately increased: 30 - 300 Severely increased: >300 Urine 12/01/2024 9:58 AM CDT 12/01/2024 Narrative [facility] - 12/02/2024 11:10 AM CDT Performed at: [address] [place] [address] [id number] Metal Treater: Kleber Shirley PhD, Phone: [phone] Manjula Goode [place] LAB URINE ORDERABLE S Final Result Performing Organization Address [facility] Co de Phone Number [facility] - 01 * TSH (12/01/2024 9:58 AM CDT) [facility] TSH 0.601 0.450 - 4.500 uIU/mL [facility] - 01 Blood 12/01/2024 9:58 AM CDT 12/01/2024 Narrative [facility] - 12/02/2024 8:11 AM CDT Performed at: [address] [place] [address] [id number] Metal Treater: Kleber Shirley PhD, Phone: [phone] Result [facility] Manjula Goode [place] LAB BLOOD ORDERABLE S Final Result Performing Organization Address [facility] Co de Phone Number [facility] - 01 * Lipid panel (12/01/2024 9:58 AM CDT) Pathologist [facility] [place] Cholesterol 164 100 - 199 mg/dL [facility] - 01 Triglycerides 48 0 - 149 mg/dL [facility] - 01 HDL Cholesterol 84 >39 mg/dL [facility] - 01 VLDL 10 5 - 40 mg/dL [facility] - 01 LDL, calculated 70 0 - 99 mg/dL [facility] - 01 Blood 12/01/2024 9:58 AM CDT 12/01/2024 Narrative [facility] - 12/02/2024 8:11 AM CDT Performed at: - [facility] [address] [id number] Metal Treater: Kleber Shirley PhD, Phone: [phone] Manjula Peguero [facility] LAB BLOOD ORDERABLE S Final Result [facility] - 01 from Last 3 Months or Most Recently Relevant to Health Maintenance Insurance [facility] CHO[facility] PLUS [facility] H[facility]/PPO Address: [facility] [id number] [place] [id number] Care Teams Physicians Assistant Relationship Specialty Start Date End Date Demetris Chaudhry DO PCP - General Internal Medicine 02/19/22 Leanne Brown MD Referring Physician Endocrinology Diabetes & Metabolism 05/06/22 Harvinder Sanders Jr., DPM Referring Physician Podiatry 05/07/22 Angeles Dee MD [address] [facility] [place] [address] Consulting Physician Bone Health 10/07/23 Manjula Goode PA [address] [facility] ENDOCRINOLOGY, [address] [address] Physician Analysis Manager Physician Analysis Manager 04/04/24
--- OUTSIDE RECORDS SUMMARY | 2025-07-13 14:13 | XMS_ITS | Clinical Summary ---
Author Organization [facility] Address [address] [place] [address] Care Team Providers Care Rocket Test Fire Worker Name Role Phone Demetris Chaudhry DO Primary Care Provider Leanne Brown MD Unavailable Tommy Devine DPM, Gabriel Unavailable Angeles Dee MD Unavailable Manjula Goode Unavailable [phone] Allergies Active Allergy Reactions Criticality Noted Date [...] hyperglycemia, without long-term current use of insulin ([facility]) Check blood sugar four times a day or as directed 200 each 024 Active baclofen (LIORESAL) 10 mg tablet 024 Active traMADoL (ULTRAM) 50 mg tablet 024 Active ondansetron ODT (ZOFRAN-ODT) 4 mg disintegrating tabletIndication s:Type 2 diabetes mellitus with hyperglycemia, with long-term current use of insulin ([facility]) Take 1 tablet (4 mg total) by mouth every 8 (eight) hours as needed for nausea or vomiting 20 tablet 3 024 Active pen needle, diabetic 32 gauge x needleIndication s:Type 2 diabetes mellitus with hyperglycemia, with long-term current use of insulin ([facility]) Use pen needles with insulin injection up to 4 times a day. 400 each 3 024 Active cyclobenzaprine (FLEXERIL) 5 mg tablet 025 Active traZODone (DESYREL) 50 mg tablet 025 Active insulin pump cart,auto,BT,G6/ L (Omnipod 5, G6/Nnamdi 2 Plus,) cartridge Change pod every 3 days. 10 each 025 Active insulin senior mechanical project engineer cart,BT,G6/L2-cn tr (Omnipod 5 Intro,G6/Bfnqx7L w[place],) cartridge Change Pod every 3 days. 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), managed as type 1 ([facility]) To change POD every 3 days 10 each 025 Active glucagon (Baqsimi) 3 mg/actuation spray,non-aeroso l BAQSIMI 3 MG/ACTUATION NASAL SPRAY 024 Active LANTUS 100 unit/mL (3 mL) pen for injection Use for insulin pump backup only 025 Active semaglutide (Ozempic) 1 mg/dose (4 mg/3 mL) pen injector injectionIndicat ions:Type 2 diabetes mellitus with hyperglycemia, with long-term current use of insulin ([facility]) INJECT SUBCUTANEOUSLY 1 MG EVERY WEEK 9 mL 3 025 Active insulin lispro (HumaLOG, ADMELOG) 100 unit/mL pen for injectionIndicat ions: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 Assessment & Plan (10/16/2024 7:38 PM INSPECTOR ELEVATORS): Still needs f/u labs as ordered last [...] fine. Assessment & Plan (10/16/2024 7:38 PM INSPECTOR ELEVATORS): Continue long-term supplement but with slightly high [...] weekly Assessment & Plan (10/07/2023 8:18 PM INSPECTOR ELEVATORS): Continue long-term supplement Assessment & Plan (07/07/2023 10:53 AM CDT): -continue same vitamin-D supplementation of 50,000 international units weekly -Will repeat level Assessment & Plan (03/10/2023 8:47 PM CDT): Continue long-term supplement Assessment & Plan (12/03/2022 7:51 PM CDT): Continue snf supplements. 08/2022- Vitamin D 14 Assessment & Plan (08/26/2022 7:14 AM INSPECTOR ELEVATORS): Vitamin D level 14.6 on 08/12/22. Needs to restart supplements: - 50,000 units weekly - 2,000 units daily Polyarthralgia 05/06/2022 Rheumatoid factor positive 05/06/2022 Assessment & Plan (03/10/2023 8:46 PM CDT): With polyarthralgias. Needs rheum evaluation Backache 05/06/2022 Has immunity to COVID-19 virus 05/06/2022 Overview (05/06/2022): Pfizer vaccine x 3 Assessment & Plan (08/25/2022 10:16 AM INSPECTOR ELEVATORS): Fully vaccinated, eligible for booster. Assessment & [...] surveillance Assessment & Plan (10/16/2024 7:37 PM INSPECTOR ELEVATORS): Vitiligo, history of positive rheumatoid factor. Positive VITALY-65 Ab. Needs ongoing surveillance Assessment & Plan (04/08/2024 9:06 PM CDT): Vitiligo, history of positive rheumatoid factor. Positive VITALY-65 Ab. Needs ongoing surveillance Assessment & Plan (10/07/2023 8:17 PM INSPECTOR ELEVATORS): Vitiligo and history of positive rheumatoid factor. Needs ongoing surveillance Assessment & Plan (07/07/2023 10:53 AM CDT): -he has + RF -Has been referred for rheumatology evaluation -Will also check celiac screen Assessment & Plan (03/10/2023 8:46 PM CDT): Vitiligo and history of positive rheumatoid factor. Needs ongoing surveillance Assessment & Plan (08/26/2022 12:54 AM INSPECTOR ELEVATORS): Vitiligo and history of positive rheumatoid factor. [...] 1.5 Assessment & Plan (10/16/2024 7:40 PM INSPECTOR ELEVATORS): Overall reasonably stable, but prone to higher [...] Component Value Date HGBA1C 6.8 06/21/2024 Per [place] [employer], goal A1c is less 7% without significant hypoglycemia. - New Regimen: Metformin 1,000 mg BID Jardiance 25 mg daily Pioglitazone 45 mg daily Increase Ozempic 1 mg weekly Glargine 5 units once daily Loosen Humalog ICR 1:40 plus sliding scale three times daily - Continue management with [employer] Nnamdi 3 CGM. - At next visit, [...] that I am available via phone or [employer]ax[employer] if they have any concerns for hypo/hyperglycemia, [...] Component Value Date HGBA1C 9.6 01/05/2024 Per [place] [employer], goal A1c is less 7% [...] Component Value Date HGBA1C 9.6 01/05/2024 Per [place] [employer], goal A1c is less 7% [...] that I am available via phone or [employer]axoh[employer] if they have any concerns for hypo/hyperglycemia, medication refills, etc. Assessment & Plan (10/07/2023 8:18 PM INSPECTOR ELEVATORS): Overall reasonably stable, but prone to evening [...] BG. Assessment & Plan (08/26/2022 12:52 AM INSPECTOR ELEVATORS): Fasting sugars above goal. - Increase pioglitazone [...] Return visit 3 months to see the HISTORIC SITE ADMINISTRATOR/PA, 6 months to see me. Assessment & Plan (05/07/2022 8:43 AM CDT): Intelligent, motivated and will benefit from more advanced Education today. 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), managed as type 1 (HCC) (Primary Dx); Vitamin D deficiency; Autoimmune disease; Hypercalcemia; education administrative assistant associated with adverse incidents 04/12/2025 11:00 AM CDT Clinical Support [facility] Endocrinology Metabolism and Lipid [address] [place] [address] [place] [address] Connie Estrada RN LADA (latent autoimmune diabetes [...] 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 on 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 Not o n file Last Filed Vital Signs Vital Sign Reading Time Taken Comments Blood Pressure 122/76 01/26/2025 9:30 AM CDT Pulse 74 01/26/2025 9:30 AM CDT Temperature 36.9 C (98.4 F) 01/26/2025 9:30 AM CDT Respiratory Rate - - Oxygen Saturation 99% 09/01/2023 10:52 AM INSPECTOR ELEVATORS Inhaled Oxygen Concentration - - Weight 96.3 [...] CDT 01/26/2025 10:54 AM CDT Manjula Peguero [facility] LAB BLOOD ORDERABLE S Final Result [facility] * (ABNORMAL) POCT hemoglobin A1c (01/26/2025 9:36 AM CDT) Hemoglobin A1C, POC 7.3(A) 4.0 - 5.6 % Blood 01/26/2025 9:36 AM CDT Manjula CARRION POINT OF CARE TEST ORDERABLES Final Result * Albumin Creatinine Ratio, Urine (12/01/2024 9:58 AM CDT) Pathologist [facility] Creatinine ur 81.4 Not Estab. mg/dL [facility] - 01 Microalbumin, ur 4.1 Not Estab. ug/mL [facility] - 01 Microalbumin/cre at ratio 5 0 - 29 mg/g creat [facility] - 01 Comment: Normal: 0 - 29 Moderately increased: 30 - 300 Severely increased: >300 Urine 12/01/2024 9:58 AM CDT 12/01/2024 Narrative [facility] - 12/02/2024 11:10 AM CDT Performed at: [address] [place] [id number] Clinical Pharmacy Manager: Kleber Shirley PhD, Phone: [phone] Manjula Goode ND LAB URINE ORDERABLE S Final Result Performing Organization Address City/[facility] Co de Phone Number [facility]CO [facility] - 01 * TSH (12/01/2024 9:58 AM CDT) [facility] TSH 0.601 0.450 - 4.500 uIU/mL [facility] - 01 Blood 12/01/2024 9:58 AM CDT 12/01/2024 Narrative [facility] - 12/02/2024 8:11 AM CDT Performed at: [address] [place] [id number] Clinical Pharmacy Manager: Kleber Shirley PhD, Phone: [phone] Result [facility] Manjula Goode ND LAB BLOOD ORDERABLE S Final Result Performing Organization Address [facility] Co de Phone Number [facility] - 01 * Lipid panel (12/01/2024 9:58 AM CDT) Pathologist [facility] Cholesterol 164 100 - 199 mg/dL [facility] - 01 Triglycerides 48 0 - 149 mg/dL [facility] - 01 HDL Cholesterol 84 >39 mg/dL [facility] - 01 VLDL 10 5 - 40 mg/dL [facility] - 01 LDL, calculated 70 0 - 99 mg/dL [facility] - 01 Blood 12/01/2024 9:58 AM CDT 12/01/2024 Narrative [facility] - 12/02/2024 8:11 AM CDT Performed at: - [facility] [address] [id number] Clinical Pharmacy Manager: Kleber Shirley PhD, Phone: [phone] Manjula Peguero [facility] LAB BLOOD ORDERABLE S Final Result [facility] - 01 from Last 3 Months or Most Recently Relevant to Health Maintenance Insurance [facility] CHOICE PLUS Care Teams Rocket Test Fire Worker Relationship Specialty Start Date End Date Demetris Chaudhry DO PCP - General Internal Medicine 02/19/22 Leanne Brown MD Referring Physician Endocrinology Diabetes & Metabolism 05/06/22 Harvinder Sanders Jr., DPM Referring Physician Podiatry 05/07/22 Angeles Dee MD [address] [facility] [place] [address] Consulting Physician Bone Health 10/07/23 Manjula Goode PA [address] [facility] ENDOCRINOLOGY, [address] [address] Physician Coronary Clinical Specialist Physician Coronary Clinical Specialist 04/04/24
--- OUTSIDE RECORDS SUMMARY | 2025-07-13 14:13 | XMS_ITS | Encounter Summary ---
Author Organization 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 Not on file Not [...] on filedocumented in this encounter Care Teams Riding Double Relationship Specialty Start Date End Date Emileexaviersamantha Demetris Le DO PCP - General Internal Medicine 02/19/22 Leanne Brown MD Referring Physician Endocrinology Diabetes & Metabolism 05/06/22 Harvinder Sanders Jr., DPDakota Referring Physician Podiatry 05/07/22 Angeles Dee MD [address] [facility] [place] [address] Consulting Physician Bone Health 10/07/23 Manjula Goode PA [address] [facility] ENDOCRINOLOGY, [place] [address] [place] [address] Physician Roller Shop Utility Worker Physician Roller Shop Utility Worker 04/04/24 documented as of this encounter
--- OUTSIDE RECORDS SUMMARY | 2025-07-13 14:13 | XMS_ITS | Clinical Summary ---
Author Organization [facility] Address [address] [place] [address] Care Team Providers Care Residency Program Coordinator Name Role Phone Unavailable Primary Care Provider Unavailabl e Source Comments [facility],non-owned Affiliates and Associated Physician Practices is amultiple site organization consisting of ambulatory clinics and hospital sitesin [place], [place] and [place]. This disclosure is being madepursuant to the Care Everywhere program and may not contain all information available regarding this patient. Last updated 18.[facility] Allergies No known active allergies Medications * [...] patient's age to complete this topic Insurance [facility]
== END 2025-07-12 15:52 | disposition home or self-care (01) ==
PROVIDERS: Physician Assistant; Emergency Provider Student in an Organized Health Care Education/Training Program; PCP Internal Medicine
DX: N30.90 Cystitis, unspecified without hematuria (principal); E11.9 Type 2 diabetes mellitus without complications; Z86.16 Personal history of COVID-19; E55.9 Vitamin D deficiency, unspecified; Z98.1 Arthrodesis status; Z79.4 Long term (current) use of insulin; Z79.85 Long-term (current) use of injectable non-insulin antidiabetic drugs; Z79.84 Long term (current) use of oral hypoglycemic drugs; Z79.899 Other long term (current) drug therapy
CPT/HCPCS: 36415; 74176; 80053; 81001; 85025; 87077; 87086; 87186; 99284

== ENCOUNTER 2025-08-28 08:44 | Emergency (ER) | payer OTHER, SELFPAY ==
--- NOTE | ~2025-08-28 | CT_ITS ---
CT abdomen pelvis w con Clinical History: RUQ epigastric pain . Comparison: CT abdomen and pelvis 07/12/2025 Technique: Axial images lung bases to symphysis pubis IV contrast information not listed in PACS Coronal, sagittal reformats CT images acquired with automatic exposure control for dose reduction DLP: 966 mGy-cm Findings: Lung bases: Clear. Visualized heart and pericardium: Unremarkable. Liver: Unremarkable. Gallbladder: Unremarkable. Spleen: Unremarkable. Pancreas: Unremarkable. Adrenal glands: Unremarkable. Kidneys: Right kidney- No hydronephrosis. No renal stones. Left kidney- No hydronephrosis. No renal stones. Distal esophagus/stomach: Unremarkable. Small bowel loops: Normal caliber and wall thickness. Colon: Normal caliber and wall thickness. Normal RLQ appendix. Nodes: No enlarged nodes. Peritoneum: No ascites. No free air. Urinary bladder: Unremarkable. Prostate: Unremarkable. Bones: No acute bony abnormality. Soft tissues: Unremarkable. Aorta: No aneurysm or dissection. IVC: Unremarkable. Main portal vein/SMV/splenic vein: Patent. IMPRESSION: 1. No acute findings. Reviewed, dictated and finalized at location R. NG MACHINE OPERATOR ELECTRONIC IMPRESSION: 1. No acute findings.
[2025-08-28 08:49] VITALS: BP 149/94; PULSE 76; RESP 14; TEMP 36.6; O2SAT 100
[2025-08-28 09:10] LABS: Add Urine Microscopic? NO; Appearance Urine Clear (Clear); Glucose Urine UA Trace mg/dL (Negative); Leukocyte Esterase Ur Negative LEU/UL (Negative); Nitrate Urine Negative (Negative); Specific Grav Ur 1.020 (1.001-1.035)
[2025-08-28 09:10] LABS: Hematocrit 44.7 % (42.0-52.0); Hemoglobin 14.8 g/dL (14.0-18.0); Immature Granulocyte Percent A 0.4 % (0-0.5); Lymphocytes Absolute Auto 1.01 K/mm3 (0.9-3.2); Mean Corpuscular HGB Conc 33.1 g/dl (32-36); Mean Corpuscular Hemoglobin 29.8 pg (26-34); Mean Corpuscular Volume 89.9 fl (80-100); Nucleated Red Blood Cells Absolute Auto 0.000 K/mm3 (0.0-0.012); Nucleated Red Blood Cells Perc 0.0 % (0.0-0.2); Platelet Count Result 350 k/mm3 (150-375); Red Blood Count 4.97 M/mm3 (4.6-6.20); White Blood Count 7.1 K/mm3 (4.5-10.0)
--- OUTSIDE RECORDS SUMMARY | 2025-08-28 09:19 | XMS_ITS | Encounter Summary ---
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 on file Not [...] on filedocumented in this encounter Care Teams Optical Technician Relationship Specialty Start Date End Date Demetris Chaudhry DO PCP - General Internal Medicine 02/19/22 Leanne Brown MD Referring Physician Endocrinology Diabetes & Metabolism 05/06/22 Harvinder Sanders Jr., KURT Referring Physician Podiatry 05/07/22 Angeles Dee MD [address] [facility] [place] [address] Consulting Physician Bone Health 10/07/23 Manjula Goode PA [address] [facility] END[facility]CR[facility], [place] [address] [place] [address] Physician Conservation Engineer Physician Conservation Engineer 04/04/24 documented as of this encounter
--- OUTSIDE RECORDS SUMMARY | 2025-08-28 09:19 | XMS_ITS | Clinical Summary ---
Author Organization [facility] Address [address] [place] [address] Care Team Providers Care Project Director Name Role Phone Demetris Chaudhry DO Primary Care Provider [phone] Leanne Brown MD Unavailable Tommy Devine DPM, Gabriel Unavailable Angeles Dee MD Unavailable Manjula Goode Unavailable [phone] Allergies Active Allergy Reactions Criticality Noted Date [...] hyperglycemia, without long-term current use of insulin ([facility]) Check blood sugar four times a day or as directed 200 each 024 Active baclofen (LIORESAL) 10 mg tablet 024 Active traMADoL (ULTRAM) 50 mg tablet 024 Active ondansetron ODT (ZOFRAN-ODT) 4 mg disintegrating tabletIndication s:Type 2 diabetes mellitus with hyperglycemia, with long-term current use of insulin ([facility]) Take 1 tablet (4 mg total) by mouth every 8 (eight) hours as needed for nausea or vomiting 20 tablet 3 024 Active pen needle, diabetic 32 gauge x needleIndication s:Type 2 diabetes mellitus with hyperglycemia, with long-term current use of insulin ([facility]) Use pen needles with insulin injection up to 4 times a day. 400 each 3 024 Active cyclobenzaprine (FLEXERIL) 5 mg tablet 025 Active traZODone (DESYREL) 50 mg tablet 025 Active insulin pump cart,auto,BT,G6/ L (Omnipod 5, G6/Nnamdi 2 Plus,) cartridge Change pod every 3 days. 10 each 025 Active insulin remote sensing engineer cart,BT,G6/L2-cn tr (Omnipod 5 Intro,G6/Jyqep1R w[place],) cartridge Change Pod every 3 days. 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), managed as type 1 ([facility]) To change POD every 3 days 10 each 025 Active glucagon (Baqsimi) 3 mg/actuation spray,non-aeroso l BAQSIMI 3 MG/ACTUATION NASAL SPRAY 024 Active LANTUS 100 unit/mL (3 mL) pen for injection Use for insulin pump backup only 025 Active semaglutide (Ozempic) 1 mg/dose (4 mg/3 mL) pen injector injectionIndicat ions:Type 2 diabetes mellitus with hyperglycemia, with long-term current use of insulin ([facility]) INJECT SUBCUTANEOUSLY 1 MG EVERY WEEK 9 mL 3 025 Active insulin lispro (HumaLOG, ADMELOG) 100 unit/mL pen for injectionIndicat ions: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 MAX 30 UNITS DAILY. 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 Control is at goal. Lab Results Component Value Date HGBA1C 6.2 (A) 07/28/2025 Per [place] [employer], goal A1c is less 7% without significant hypoglycemia. - Management Goal: maintain glycemic control - Continue Omnipod 5 with Dexcom G7 CGM - Changes in insulin pump settings: -Increase basal rate to 0.6 units/hr -Increase target overnight to 120 mg/dL (from 110 mg/dL) -Between 11am-4pm, tighten ISF to 19 (from 21) and ISF to 75 (from 77) -Turn reverse correction off - Continue Metformin 1,000 mg twice weekly and Ozempic 1 mg once weekly - Advised bolusing 10-15 minutes before each meal. - Advised annual dilated eye exam - up to date. - Advised checking blood glucose before driving - Discussed hypoglycemia risk, and treatment such as the rule of 15s and the use of glucagon - Patient has back up insulin in case of pump failure - Discussed sick rules, checking ketones if > 300 or if ill. - Annual labs are up to date. - Update me on consistent glycemia excursions or if there is any hypoglycemia. - Advised and ensured that I am available via phone or MyChart if they have any concerns for hypo/hyperglycemia, medication refills, etc. Assessment & Plan (04/30/2025 7:58 PM CDT): [...] Value Date HGBA1C 7.3 (A) 01/26/2025 Per [place] [employer], goal A1c is less 7% [...] that I am available via phone or [facility] if they have any concerns for hypo/hyperglycemia, medication refills, etc. 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 Assessment & Plan (10/16/2024 7:38 PM MATERIAL HANDLER LOADER): Still needs f/u labs as ordered last [...] fine. Assessment & Plan (10/16/2024 7:38 PM MATERIAL HANDLER LOADER): Continue long-term supplement but with slightly high [...] weekly Assessment & Plan (10/07/2023 8:18 PM MATERIAL HANDLER LOADER): Continue long-term supplement Assessment & Plan (07/07/2023 10:53 AM CDT): -continue same vitamin-D supplementation of 50,000 international units weekly -Will repeat level Assessment & Plan (03/10/2023 8:47 PM CDT): Continue long-term supplement Assessment & Plan (12/03/2022 7:51 PM CDT): Continue buttermaker helper supplements. 08/2022- Vitamin D 14 Assessment & Plan (08/26/2022 7:14 AM MATERIAL HANDLER LOADER): Vitamin D level 14.6 on 08/12/22. Needs to restart supplements: - 50,000 units weekly - 2,000 units daily Polyarthralgia 05/06/2022 Rheumatoid factor positive 05/06/2022 Assessment & Plan (03/10/2023 8:46 PM CDT): With polyarthralgias. Needs rheum evaluation Backache 05/06/2022 Has immunity to COVID-19 virus 05/06/2022 Overview (05/06/2022): Pfizer vaccine x 3 Assessment & Plan (08/25/2022 10:16 AM MATERIAL HANDLER LOADER): Fully vaccinated, eligible for booster. Assessment & [...] surveillance Assessment & Plan (10/16/2024 7:37 PM MATERIAL HANDLER LOADER): Vitiligo, history of positive rheumatoid factor. Positive VITALY-65 Ab. Needs ongoing surveillance Assessment & Plan (04/08/2024 9:06 PM CDT): Vitiligo, history of positive rheumatoid factor. Positive VITALY-65 Ab. Needs ongoing surveillance Assessment & Plan (10/07/2023 8:17 PM MATERIAL HANDLER LOADER): Vitiligo and history of positive rheumatoid factor. Needs ongoing surveillance Assessment & Plan (07/07/2023 10:53 AM CDT): -he has + RF -Has been referred for rheumatology evaluation -Will also check celiac screen Assessment & Plan (03/10/2023 8:46 PM CDT): Vitiligo and history of positive rheumatoid factor. Needs ongoing surveillance Assessment & Plan (08/26/2022 12:54 AM MATERIAL HANDLER LOADER): Vitiligo and history of positive rheumatoid factor. [...] 1.5 Assessment & Plan (10/16/2024 7:40 PM MATERIAL HANDLER LOADER): Overall reasonably stable, but prone to higher [...] Component Value Date HGBA1C 6.8 06/21/2024 Per [place] [employer], goal A1c is less 7% [...] that I am available via phone or [facility] if they have any concerns for hypo/hyperglycemia, [...] Component Value Date HGBA1C 9.6 01/05/2024 Per [place] [employer], goal A1c is less 7% [...] Component Value Date HGBA1C 9.6 01/05/2024 Per [place] [employer], goal A1c is less 7% [...] etc. Assessment & Plan (10/07/2023 8:18 PM MATERIAL HANDLER LOADER): Overall reasonably stable, but prone to evening [...] BG. Assessment & Plan (08/26/2022 12:52 AM MATERIAL HANDLER LOADER): Fasting sugars above goal. - Increase pioglitazone [...] Return visit 3 months to see the BACK JOINER/PA, 6 months to see me. Assessment & Plan (05/07/2022 8:43 AM CDT): Intelligent, motivated and will benefit from more advanced Education today. 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), managed as type 1 (HCC) (Primary Dx); [facility] (current) use of insulin (HCC); Insulin pump in place from Last 3 Months Immunizations Immunization Administration [...] Never Smokeless Tobacco: Never Tobacco Cessation:Counseling Given: No Sex and Gender Information Value Date Recorded Sex Assigned at Not on file Legal Sex Male 11:24 AM CDT Gender Identity Not on file Sexual Orientation Not on file 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 Not on file Not on file Not o n file Last Filed Vital Signs Vital Sign Reading Time Taken Comments Blood Pressure 126/84 07/28/2025 9:54 AM MATERIAL HANDLER LOADER Pulse 82 07/28/2025 9:54 AM MATERIAL HANDLER LOADER Temperature 37.3 C (99.1 F) 07/28/2025 9:54 AM MATERIAL HANDLER LOADER Respiratory Rate - - Oxygen Saturation 99% 09/01/2023 10:52 AM MATERIAL HANDLER LOADER Inhaled Oxygen Concentration - - Weight 108.4 kg (239 lb) 07/28/2025 9:54 AM MATERIAL HANDLER LOADER Height 193 cm (6' 4) 07/28/2025 9:54 AM MATERIAL HANDLER LOADER Body Mass Index 29.09 07/28/2025 9:54 AM MATERIAL HANDLER LOADER Plan of Treatment Health Maintenance Due Date Last Done Comments Depression Screening 1987 Foot Exam 1987 Hepatitis C Screening 1987 Dilated Eye Exam 1997 Varicella Vaccines (1 of 2 - 13+ 2-dose series) 2000 Hepatitis B Screening 2005 Regular Well Visit/Exam 18-64 2005 Pneumococcal vaccine <65 (1 of 2 - PCV) 2006 HPV Vaccines (1 - 3-dose SCD M series) 2014 Covid-19 Vaccine (4 - 2024-2 6 season) 2025 07/26/2021, 11/27/2020, 11/06/2020 Influenza Vaccine (#1) 2025 3, 07/03/2021, 06/21/2020, Additional history exists Albumin Creatinine Ratio, Urine 12/01/2025 5, 10/21/2023 Lipid Panel 12/01/2025 12/01/2024, 10/21/2023 TSH Level 12/01/2025 12/01/2024, 10/08, 08/22/2022 Hemoglobin A1C 01/25/2026 07/28/2025, 01/06, 06/21/2024, Additional history exists eGFR 01/26/2026 01/26/2025, 11/06, 01/25/2024, Additional history exists DTaP/Tdap/Td Vaccine (2 - Td or Tdap) 12/20/2028 12/20/2018 Procedures Procedure Name Priority Date/Time Associated Diagnosis Comments POCT HEMOGLOBIN A1C Routine 07/28/2025 1 0:01 AM MATERIAL HANDLER LOADER 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), managed as type 1 (HCC) POCT GLUCOSE [id number] Routine 07/28/2025 10 :00 AM MATERIAL HANDLER LOADER 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), managed as type 1 (HCC) RENAL FUNCTION PANEL Routine 01/26/2025 10:27 AM [...] Relevant to Health Maintenance Results * (ABNORMAL) POCT hemoglobin A1c (07/28/2025 10:01 AM MATERIAL HANDLER LOADER) Pathologist [facility] Hemoglobin A1C, POC 6.2(A) 4.0 - 5.6 % Blood 07/28/2025 10:0 1 AM MATERIAL HANDLER LOADER Manjula Peguero [facility] POINT OF CARE TEST ORDERABLES Final Result * POCT glucose (07/28/2025 10:00 AM MATERIAL HANDLER LOADER) Pathologist [facility] Glucose Blood, POC 164 Normal Fasting 70 - 100, Random <200 mg/dL Blood 07/28/2025 10:0 0 AM MATERIAL HANDLER LOADER Manjula Peguero [facility] POINT OF CARE TEST ORDERABLES Final Result * (ABNORMAL) Renal function panel (01/26/2025 10:27 [...] CDT 01/26/2025 10:54 AM CDT Manjula Peguero [facility] LAB BLOOD ORDERABLE S Final Result [facility] * Albumin Creatinine Ratio, Urine (12/01/2024 9:58 AM CDT) Creatinine ur 81.4 Not Estab. mg/dL [facility] - 01 Microalbumin, ur 4.1 Not Estab. ug/mL [facility] - 01 Microalbumin/cre at ratio 5 0 - 29 mg/g creat [facility] - 01 Comment: Normal: 0 - 29 Moderately increased: 30 - 300 Severely increased: >300 Urine 12/01/2024 9:58 AM CDT 12/01/2024 Narrative [facility] - 12/02/2024 11:10 AM CDT Performed at: [address] [id number] Resistor Tester: Kleber Shirley PhD, Phone: [phone] Manjula Goode [place] LAB URINE ORDERABLE S Final Result Performing Organization Address City/[facility]/ZIP Co de Phone Number [facility] - 01 * TSH (12/01/2024 9:58 AM CDT) Pathologist [facility] TSH 0.601 0.450 - 4.500 uIU/mL [facility] - 01 Blood 12/01/2024 9:58 AM CDT 12/01/2024 Narrative [facility] - 12/02/2024 8:11 AM CDT Performed at: [address] [id number] Resistor Tester: Kleber Shirley PhD, Phone: [phone] Manjula Peguero [facility] LAB BLOOD ORDERABLE S Final Result Performing Organization Address City/[facility]/ZIP Co de Phone Number [facility] - 01 * Lipid panel (12/01/2024 9:58 AM CDT) Cholesterol 164 100 - 199 mg/dL [facility] - 01 Triglycerides 48 0 - 149 mg/dL [facility] - 01 HDL Cholesterol 84 >39 mg/dL [facility] - 01 VLDL 10 5 - 40 mg/dL [facility] - 01 LDL, calculated 70 0 - 99 mg/dL [facility] - 01 Blood 12/01/2024 9:58 AM CDT 12/01/2024 Narrative [facility] - 12/02/2024 8:11 AM CDT Performed at: [address] [place] [id number] Resistor Tester: Kleber Shirley PhD, Phone: [phone] Manjula Peguero [facility] LAB BLOOD ORDERABLE S Final Result [facility] - 01 from Last 3 Months or Most Recently Relevant to Health Maintenance Insurance [facility] Care Teams Project Director Relationship Specialty Start Date End Date Demetris Chaudhry DO PCP - General Internal Medicine 02/19/22 Leanne Brown MD Referring Physician Endocrinology Diabetes & Metabolism 05/06/22 Harvinder Sanders Jr., DPDakota Referring Physician Podiatry 05/07/22 Angeles Dee MD [address] [facility] [place] [address] Consulting Physician Bone Health 10/07/23 Manjula Goode PA [address] DIV IM ENDOCRINOLOGY[address] [place] [address] Physician School Crossing Guard Supervisor Physician School Crossing Guard Supervisor 04/04/24
--- OUTSIDE RECORDS SUMMARY | 2025-08-28 09:19 | XMS_ITS | Patient Health Record ---
Author Organization [facility] [employer] [facility] Address [address] [place] [address] Support Name Relationship Address Phone DANIELYOSEPH Emergency Contact Unknown Unavail able CRISTIAN SANCHEZ Guarantor Unknown [phone] Reason For Referral No Information Medications Medication SIG (Take, Route, Frequency, Duration) Notes Start Date End Date Status Celecoxib 100 MG Capsule Oral 10/22/2023 Active tiZANidine HCl 2 MG Tablet Oral 10/22/2023 Active HumaLOG KwikPen 100 UNIT/ML Solution Pen-injector Subcutaneous 10/22/2023 Active TRULICITY 4.5 MG/0.5 ML SUBCUTANEOUS PEN INJECTOR *Reorder from [employer] for eRx and Interaction Alerts* 10/22/2023 Active Pioglitazone HCl 45 MG Tablet Oral 10/22/2023 Active metFORMIN HCl 1000 MG Tablet Oral 10/22/2023 Active Jardiance 25 MG Tablet Oral 10/22/2023 Active BAQSIMI 3 MG/ACTUATION NASAL SPRAY *Reorder from [employer] for eRx and Interaction Alerts* 10/22/2023 Active Cefdinir 300 MG Capsule Oral 10/22/2023 Active DULoxetine HCl 30 MG Capsule Delayed Release Particles Oral 10/22/2023 Active Social History Social History Additional Details Category Social Info Options Details Migrated Social History Migrated Social History Alcohol Intake: None 10/01/2023,Tobacco Years: Never smoker 10/01/2023 Plan Of Treatment No Information Insurance Providers Payer Name Payer Address Payer Phone Subscriber Number Group Number Insured Name Patient Relationship to Insured Coverage Start Date Coverage End Date [facility] [address] [place] [address] [id number] CRISTIAN SANCHEZ Self - patient is the insured Medical (General) History Surgical History Surgery Date(Month/Year) Other left arm/broke 04/07/1998
--- OUTSIDE RECORDS SUMMARY | 2025-08-28 09:19 | XMS_ITS | Patient Health Record ---
Author Organization [employer] Address [address] [facility] [address] [place], [place] [id number] Phone [phone] Care Team Providers Care Ed Teacher Name Role Phone SARAH AJMES Primary Care Provider Ro Douglas M.D., Akgun Unavailable [phone] Reason For Referral No Information Social History Sex Observation Social History Observation Description Sex Observation Male Problems Problem Type SNOMED Code ICD Code Dates Problem Status W/U Status Risk Notes Problem Rheumatoid factor positive (164447401) Rheumatoid factor positive (R76.8) Added On:05/24 Active confirmed Problem Polyarthralgia (50411983) Polyarthralgia (M25.50) Added On:05/24 Active confirmed Problem Backache (625710473) Back pain, unspecified back location, unspecified back pain laterality, unspecified chronicity (M54.9) Added On:05/24 Active confirmed Problem Type II diabetes mellitus without complication (322186813) Type 2 diabetes mellitus without complication, unspecified whether long-term insulin use (E11.9) Added On:05/24 Active confirmed Plan Of Treatment Pending Test Test Name Order Date X ray : Hand, left 05/24/2019 X ray : Hand, right 05/24/2019 Insurance Providers Payer Name Payer Address Payer Phone Subscriber Number Group Number Insured Name Patient Relationship to Insured Coverage Start Date Coverage End Date [facility] [address] [place] [id number] Cain Blount Self - patient is the insured 9
--- OUTSIDE RECORDS SUMMARY | 2025-08-28 09:19 | XMS_ITS | Clinical Summary ---
Author Organization [facility] Address [address] [place] [address] Care Team Providers Care Crystal Finisher Name Role Phone Unavailable Primary Care Provider Unavailabl e Source Comments [facility],non-owned Affiliates and Associated Physician Practices is amultiple site organization consisting of ambulatory clinics and hospital sitesin [place], [place], [place] and [place]. This disclosure is being madepursuant to the Care Everywhere program and may not contain all information available regarding this patient. Last updated 18.[facility] Allergies No known active allergies Medications * [...] DEPRESSION SCREENING 09/07/2024 COVID-19 VACCINE ( - 2024-2 6 season) 2025 INFLUENZA VACCINE (#1) 2025 06/23/2018 [...] patient's age to complete this topic Insurance [facility] [place] [address]
[2025-08-28 09:31] LABS: Alanine Aminotransferase 17 U/L (6-50); Albumin Level 4.5 g/dL (3.5-5.1); Alkaline Phosphatase 101 U/L (38-126); Anion Gap 8 mmol/L (4-12); Aspartate Amino Transferase 31 U/L (17-59); Bilirubin,Total 0.6 mg/dL (0.2-1.3); Blood Urea Nitrogen 14 mg/dL (9-20); Calcium 9.3 mg/dL (8.4-10.2); Carbon Dioxide 27 mmol/L (22-30); Chloride 99 mmol/L (98-107); Estimated CRCL calculation 117 ml/min; Estimated Glomerular Filt Rate > 60; Glucose 162 mg/dL (65-110); Lipase 34 U/L (23-300); Potassium 4.5 mmol/L (3.4-5.0); Sodium 134 mmol/L (137-145); Total Protein 7.7 g/dL (6.3-8.2)
[2025-08-28] MEDS: ACETAMINOPHEN 500 MG TABLET 1000 MG PO (09:46)
[2025-08-28] MEDS: ONDANSETRON INJ 4 MG/2 ML VIAL IV PUSH (09:47)
[2025-08-28] MEDS: FAMOTIDINE 20 MG/2 ML VIAL IV PUSH (09:53)
--- NOTE | 2025-08-28 10:08 | ED_ITS ---
HPI - Abdominal Pain General Chief Complaint: Abdominal Pain Stated Complaint: abdominal pain Time Seen by Provider: 08/28/25 09:02 Source: patient Mode of arrival: ambulatory Limitations: no limitations History of Present Illness HPI narrative: Patient is a 40-year-old male, with PMH of IDDM, who presents the ED with report of right upper abdominal pain. Patient reports pain has been intermittent since last . He reports he had been constipated since last week, but had been taking MiraLax and had a substantial bowel movement this morning. Reports nausea associated with the pain, but denies vomiting. Denies aggravating or alleviating factors pain. Has not taken anything for pain. Denies rectal bleeding, melena, dysuria, hematuria, fevers. Related Data Home Medications ?Medication ?Instructions ?Recorded ?Confirmed ?Last Taken ?Type albuterol sulfate 90 mcg/actuation 2 puff inhalation Q 4-6H PRN 09/15/19 07/12/25 Unknown History aerosol inhaler (ProAir HFA) Shortness Of Breath Or Wh eezing cholecalciferol (vitamin D3) 1,250 1,250 mcg PO WEEKLY 08/27/22 07/12/25 09/19/24 History mcg (50,000 unit) capsule metformin 1,000 mg tablet 1,000 mg PO BID 12/06/2201/2912/28/23 History insulin lispro 100 unit/mL 5 unit subcut DAILY BLOOD S UGAR 01/20/24 07/12/25 Unknown History subcutaneous pen (Humalog KwikPen (U-100) Insulin) semaglutide 1 mg/dose (4 mg/3 mL) 1 mg subcut WEEKLY 1 11/03/23 07/12/25 09/16/24 History subcutaneous pen injector (Ozempic) Allergies Allergy/AdvReac Type Severity Reaction Status Date / Time aloe Allergy Mild Rash Verified 08/28/25 08:52 sumatriptan (From Imitrex) AdvReac Severe Difficulty Verified 08/28/25 08:52 Swallowing Review of Systems 2 Review of Systems: All systems reviewed & are unremarkable except as noted in HPI. All systems reviewed & are unremarkable except as noted in HPI and below PMFSH Past Medical History Medical History Orthostasis Spondylolisthesis, lumbar region Acute frontal sinusitis Left knee pain Dizziness Viral pharyngitis C. difficile diarrhea Diarrhea Dehydration Gynecomastia Left radial fracture Asthma Asthenia Nausea & vomiting Pneumomediastinum COVID-19 Influenza A Vitamin D deficiency Acute hyperkalemia Herpes labialis Degenerative disc disease Plantar wart of left foot Viral illness Injection (erythema) Steroid injection 03/2019 Chronic pain Transaminitis Allergies Elevated liver enzymes Hyperkalemia Type 2 diabetes mellitus Surgical History Surgical History History of lumbar fusion Family History Family History Sibling Family history of blood dyscrasia Mother Cancer Father Patient's father is in good health Hypertension Other Lupus Grandparent Heart disease Diabetes mellitus Social History Social History Social History: Live house with 2 children and 1 dog. No smoking, drinking or drug use. caffeine-daily Smoking status: Never smoker Second hand tobacco smoke exposure: No Alcohol intake: never Alcohol use details: no drink in 6 yrs Substance use: never Substance use type: does not use Lack of Transportation: No Lack of Food: Never True Current Housing: I Have Housing Concerned About Future Housing: No Difficulty Paying Gas/Electric Bills: No Difficulty Paying for Meds: No Currently Unemployed: No Education: Bachelor's Degree Difficulty w/ Childcare or Family Care: No Living arrangements: with family Additional living arrangements comments: Spiritual care concerns: No Exam 2 Narrative: GENERAL: Well appearing, well-nourished, non-toxic, in no acute distress. HEAD: Normocephalic, atraumatic. RESPIRATORY: Airway patent, respirations nonlabored. Clear to auscultation bilaterally, no rales, rhonchi, wheezing. CARDIOVASCULAR: Regular rate and rhythm without murmurs, rubs, or gallops. ABDOMINAL: Soft, mild tenderness to palpation right upper quadrant, epigastric region, left upper quadrant, nondistended. Normoactive BS. MUSCULOSKELETAL: Moves all extremities. No gross deformities. SKIN: Warm, dry, normal color. NEURO: A&O X3. Speech clear. Cranial nerves II-XII grossly intact. Steady gait. No ataxic movements. PSYCHIATRIC: Appropriate mood and affect. Normal interaction. Course Vital Signs Vital signs: Vital Signs Temperature 97.9 F 08/28/25 08:49 Pulse Rate 76 08/28/25 08:49 Respiratory Rate 14 08/28/25 08:49 Blood Pressure 149/94 H 08/28/25 08:49 Pulse Oximetry 100 08/28/25 08:49 Oxygen Delivery Room Air 08/28/25 08:49 Temperature 97.9 F 08/28/25 08:49 Pulse Rate 67 08/28/25 10:30 Respiratory Rate 15 08/28/25 10:30 Blood Pressure 149/94 H 08/28/25 10:30 Pulse Oximetry 100 08/28/25 10:30 Oxygen Delivery Room Air 08/28/25 08:49 MDM MDM Narrative Medical decision making narrative: Patient presented to ED with several day history of upper abdominal pain, recent constipation. Vital signs stable upon arrival. Patient is in no acute distress. Laboratory studies are fairly unremarkable. No leukocytosis or anemia. Stable electrolytes. Stable kidney function. Normal LFTs and lipase. UA is without evidence of infection. CT scan of abdomen/pelvis was obtained and also unremarkable. No acute findings. No obstruction. Gallbladder, stomach are unremarkable. Personal review of images does still show decent amount of stool throughout upper abdomen/transverse region. Discussed lab and imaging findings with patient, possibility of constipation, IBS type pain, gastritis. Will start patient on Bentyl, Pepcid. Will prescribe Zofran for home use as needed. Discussed further constipation management. Discussed close follow-up with PCP. Discussed strict return precautions. Patient in agreement plan. Feels comfortable going home. Discharged in stable condition. Differential Diagnosis Differential Diagnosis: Constipation, bowel obstruction, cholelithiasis, cholecystitis, pancreatitis, musculoskeletal etiology, gastritis/GERD/PUD Medical Records I have reviewed the following patient records and this information was taken into consideration when formulating the assessment and plan.: previous labs, previous ER visits, previous hospitalizations and previous clinic visits Lab Data MDM Lab Attestation statement: I personally reviewed the patient's lab results. 08/28/25 09:01 08/28/25 09:01 Labs: Lab Results 08/28/25 08/28/25 Range/Units 09:01 09:04 WBC 7.1 (4.5-10.0) K/mm3 RBC 4.97 (4.6-6.20) M/mm3 Hgb 14.8 (14.0-18.0) g/dL Hct 44.7 (42.0-52.0) % MCV 89.9 (80-100) fl MCH 29.8 (26-34) pg MCHC 33.1 (32-36) g/dl RDW 13.2 (11.5-14.5) % Plt Count 350 (150-375) k/mm3 MPV 9.6 (7.4-10.4) fl Immature Gran % (Auto) 0.4 (0-0.5) % Neut % (Auto) 71.3 (45.5-73.1) % Lymph % (Auto) 14.3 L (18.3-44.2) % [place] % (Auto) 11.7 H (2.6-8.5) % Eos % (Auto) 1.7 (0-4.4) % Baso % (Auto) 0.6 (0.2-1.2) % Lymph # (Auto) 1.01 (0.9-3.2) K/mm3 [place] # (Auto) 0.8 H (0.1-0.6) K/mm3 Eos # (Auto) 0.1 (0-0.3) K/mm3 Baso # (Auto) 0.0 (0.0-0.1) K/mm3 Abs Immat Gran (auto) 0.03 (0.00-0.031) K/mm3 Absolute Neuts (auto) 5.1 (1.3-6.7) K/mm3 Absolute Nucleated RBC 0.000 (0.0-0.012) K/mm3 Nucleated RBC % 0.0 (0.0-0.2) % Sodium 134 L (137-145) mmol/L Potassium 4.5 (3.4-5.0) mmol/L Chloride 99 (98-107) mmol/L Carbon Dioxide 27 (22-30) mmol/L Anion Gap 8 (4-12) mmol/L BUN 14 (9-20) mg/dL Creatinine 0.92 (0.7-1.3) mg/dL Estim Creat Clear Calc 117 ml/min Estimated GFR > 60 (59 - ) Glucose 162 H (65-110) mg/dL Calcium 9.3 (8.4-10.2) mg/dL Total Bilirubin 0.6 (0.2-1.3) mg/dL AST 31 (17-59) U/L ALT 17 (6-50) U/L Alkaline Phosphatase 101 (38-126) U/L Total Protein 7.7 (6.3-8.2) g/dL Albumin 4.5 (3.5-5.1) g/dL Lipase 34 (23-300) U/L Urine Color Yellow (Yellow) Urine Appearance Clear (Clear) Urine pH 6.5 (5.0-9.0) Ur Specific [place] 1.020 (1.001-1.035) Urine Protein Negative (Negative) mg/dL Urine Glucose (UA) Trace H (Negative) mg/dL Urine Ketones Trace H (Negative) mg/dL Ur Blood (Man) Negative (Negative) Urine Nitrate Negative (Negative) Urine Bilirubin Negative (Negative) Urine Urobilinogen 1.0 (<2.0) mg/dL Leukocyte Esterase Rfl Negative (Negative) KEO/UL Imaging Data Attestation: I personally reviewed and interpreted this imaging study as follows: Radiologist's impression: ITS Impressions Abdomen/Pelvis CT 08/28/25 09:51 IMPRESSION: 1. No acute findings. Discharge Plan Discharge Clinical Impression: Acute upper abdominal pain, Constipation Patient Disposition: Home Condition: Stable Instructions: Antibiotic Form, Gastritis (ED), Constipation (ED), Diet for Stomach Ulcers and Gastritis (ED) Additional Instructions: Utilize Bentyl, Tylenol as needed for further abdominal discomfort. Recommend MiraLax/Dulcolax up to twice daily as needed for constipation. Stay well hydrated. Recommend high-fiber diet. Utilize zofran as needed for further nausea. Recommend taking Pepcid daily for possible acid reflux. Recommend clear liquids or bland diet until symptoms improve, such as bananas, rice, applesauce, toast, or crackers. Follow up with your primary care doctor for further evaluation as needed. Return to the ED if you experience worsening or severe symptoms, unable to keep down food or drink, severe pain, fevers, rectal bleeding, dark black stools, vomiting blood, or any other symptoms of concern. Patient Language: Grenadian Prescriptions: New dicyclomine 20 mg tablet 20 mg PO TID PRN (Reason: Abdominal Discomfort) Qty: 15 0RF famotidine 20 mg tablet 20 mg PO DAILY Qty: 30 0RF ondansetron 4 mg tablet,disintegrating 4 mg PO Q8H PRN (Reason: nausea and vomiting) Qty: 15 0RF No Action albuterol sulfate [ProAir HFA] 90 mcg/actuation HFA aerosol inhaler 2 puff INHALATION Q4-6H PRN (Reason: Shortness Of Breath Or Wheezing) (DME) blood-glucose meter [Blood Glucose Monitoring] Kit See Rx Instructions .Route Qty: 1 0RF Rx Instructions: As directed (DME) Blood Glucose Test Strip See Rx Instructions .Route Qty: 50 0RF Rx Instructions: As directed (DME) lancets 32 gauge misc See Rx Instructions .Route Qty: 100 0RF Rx Instructions: As directed cholecalciferol (vitamin D3) 1,250 mcg (50,000 unit) capsule 1,250 mcg PO WEEKLY Rx Instructions: thursday Ubrelvy 50 mg tablet 50 mg PO ONCE Qty: 10 0RF Rx Instructions: as a single dose; may repeat once in >=2 hours after first dose if needed insulin lispro [Humalog KwikPen Insulin] 100 unit/mL insulin pen 5 unit subcut DAILY Rx Instructions: 1-4 UNITS SS W CARBS metformin 1,000 mg tablet 1,000 mg PO BID Ozempic 1 mg/dose (4 mg/3 mL) pen injector 1 mg SUBCUT WEEKLY cefpodoxime 200 mg tablet 200 mg PO BID Qty: 20 0RF Rx Instructions: must administer with a meal/food duloxetine 60 mg capsule,delayed release(DR/EC) 60 mg PO DAILY Qty: 90 1RF trazodone 50 mg tablet 50 mg PO QHS PRN (Reason: insomnia) Qty: 90 1RF Follow-up/Referrals: Demetris Chaudhry DO [Primary Care Provider, Internal Medicine] Time of Disposition: 10:55
[2025-08-28 10:30] VITALS: BP 149/94; PULSE 67; RESP 15; O2SAT 100
--- OUTSIDE RECORDS SUMMARY | 2025-08-28 11:26 | XMS_ITS | Clinical Summary ---
Author Organization [facility] Address [address] [place] [address] Care Team Providers Care Prison Guard Name Role Phone Demetris Chaudhry DO Primary Care Provider [phone] Leanne Brown MD Unavailable Tommy Devine DPM, Gabriel Unavailable Angeles Dee MD Unavailable Manjula Goode Unavailable [phone] Allergies Active Allergy Reactions Criticality Noted Date [...] hyperglycemia, without long-term current use of insulin ([facility]) Check blood sugar four times a day or as directed 200 each 024 Active baclofen (LIORESAL) 10 mg tablet 024 Active traMADoL (ULTRAM) 50 mg tablet 024 Active ondansetron ODT (ZOFRAN-ODT) 4 mg disintegrating tabletIndication s:Type 2 diabetes mellitus with hyperglycemia, with long-term current use of insulin ([facility]) Take 1 tablet (4 mg total) by mouth every 8 (eight) hours as needed for nausea or vomiting 20 tablet 3 024 Active pen needle, diabetic 32 gauge x needleIndication s:Type 2 diabetes mellitus with hyperglycemia, with long-term current use of insulin ([facility]) Use pen needles with insulin injection up to 4 times a day. 400 each 3 024 Active cyclobenzaprine (FLEXERIL) 5 mg tablet 025 Active traZODone (DESYREL) 50 mg tablet 025 Active insulin pump cart,auto,BT,G6/ L (Omnipod 5, G6/Nnamdi 2 Plus,) cartridge Change pod every 3 days. 10 each 025 Active insulin slicing machine tender cart,BT,G6/L2-cn tr (Omnipod 5 Intro,G6/Jjsxn4R w[place]ka,) cartridge Change Pod every 3 days. 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), managed as type 1 ([facility]) To change POD every 3 days 10 each 025 Active glucagon (Baqsimi) 3 mg/actuation spray,non-aeroso l BAQSIMI 3 MG/ACTUATION NASAL SPRAY 024 Active LANTUS 100 unit/mL (3 mL) pen for injection Use for insulin pump backup only 025 Active semaglutide (Ozempic) 1 mg/dose (4 mg/3 mL) pen injector injectionIndicat ions:Type 2 diabetes mellitus with hyperglycemia, with long-term current use of insulin ([facility]) INJECT SUBCUTANEOUSLY 1 MG EVERY WEEK 9 mL 3 025 Active insulin lispro (HumaLOG, ADMELOG) 100 unit/mL pen for injectionIndicat ions: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 MAX 30 UNITS DAILY. 15 mL 3 025 Active metFORMIN (GLUCOPHAGE) 1,000 mg tabletIndication s:Type 2 diabetes mellitus with hyperglycemia, without long-term current use of insulin ([facility]) TAKE 1 TABLET BY MOUTH TWICE DAILY [...] Diagnosed Date Insulin pump in place 07/28/2025 drum tender associated with adverse incidents 04/26/2025 Assessment & Plan (04/30/2025 8:00 PM CDT): He is adept in using and managing the insulin pump. 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 Control is at goal. Lab Results Component Value Date HGBA1C 6.2 (A) 07/28/2025 Per [employer], goal A1c is less 7% [...] Value Date HGBA1C 7.3 (A) 01/26/2025 Per [place] [employer], goal A1c is less 7% [...] that I am available via phone or Dheere Bolohart if they have any concerns for hypo/hyperglycemia, medication refills, etc. 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 Assessment & Plan (10/16/2024 7:38 PM BIOINFORMATICS SOFTWARE ENGINEER): Still needs f/u labs as ordered last [...] fine. Assessment & Plan (10/16/2024 7:38 PM BIOINFORMATICS SOFTWARE ENGINEER): Continue long-term supplement but with slightly high [...] weekly Assessment & Plan (10/07/2023 8:18 PM BIOINFORMATICS SOFTWARE ENGINEER): Continue long-term supplement Assessment & Plan (07/07/2023 10:53 AM CDT): -continue same vitamin-D supplementation of 50,000 international units weekly -Will repeat level Assessment & Plan (03/10/2023 8:47 PM CDT): Continue long-term supplement Assessment & Plan (12/03/2022 7:51 PM CDT): Continue dedicated intermodal truck driver supplements. 08/2022- Vitamin D 14 Assessment & Plan (08/26/2022 7:14 AM BIOINFORMATICS SOFTWARE ENGINEER): Vitamin D level 14.6 on 08/12/22. Needs to restart supplements: - 50,000 units weekly - 2,000 units daily Polyarthralgia 05/06/2022 Rheumatoid factor positive 05/06/2022 Assessment & Plan (03/10/2023 8:46 PM CDT): With polyarthralgias. Needs rheum evaluation Backache 05/06/2022 Has immunity to COVID-19 virus 05/06/2022 Overview (05/06/2022): Pfizer vaccine x 3 Assessment & Plan (08/25/2022 10:16 AM BIOINFORMATICS SOFTWARE ENGINEER): Fully vaccinated, eligible for booster. Assessment & [...] surveillance Assessment & Plan (10/16/2024 7:37 PM BIOINFORMATICS SOFTWARE ENGINEER): Vitiligo, history of positive rheumatoid factor. Positive VITALY-65 Ab. Needs ongoing surveillance Assessment & Plan (04/08/2024 9:06 PM CDT): Vitiligo, history of positive rheumatoid factor. Positive VITALY-65 Ab. Needs ongoing surveillance Assessment & Plan (10/07/2023 8:17 PM BIOINFORMATICS SOFTWARE ENGINEER): Vitiligo and history of positive rheumatoid factor. Needs ongoing surveillance Assessment & Plan (07/07/2023 10:53 AM CDT): -he has + RF -Has been referred for rheumatology evaluation -Will also check celiac screen Assessment & Plan (03/10/2023 8:46 PM CDT): Vitiligo and history of positive rheumatoid factor. Needs ongoing surveillance Assessment & Plan (08/26/2022 12:54 AM BIOINFORMATICS SOFTWARE ENGINEER): Vitiligo and history of positive rheumatoid factor. [...] 1.5 Assessment & Plan (10/16/2024 7:40 PM BIOINFORMATICS SOFTWARE ENGINEER): Overall reasonably stable, but prone to higher [...] Component Value Date HGBA1C 6.8 06/21/2024 Per [employer], goal A1c is less 7% [...] that I am available via phone or Dheere Bolohart if they have any concerns for hypo/hyperglycemia, [...] Component Value Date HGBA1C 9.6 01/05/2024 Per [place], goal A1c is less 7% [...] Component Value Date HGBA1C 9.6 01/05/2024 Per [place], goal A1c is less 7% [...] etc. Assessment & Plan (10/07/2023 8:18 PM BIOINFORMATICS SOFTWARE ENGINEER): Overall reasonably stable, but prone to evening [...] BG. Assessment & Plan (08/26/2022 12:52 AM BIOINFORMATICS SOFTWARE ENGINEER): Fasting sugars above goal. - Increase pioglitazone [...] Return visit 3 months to see the MOTOR EXPRESS CLERK/PA, 6 months to see me. Assessment & Plan (05/07/2022 8:43 AM CDT): Intelligent, motivated and will benefit from more advanced Education today. 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 Not on file Not o n file Last Filed Vital Signs Vital Sign Reading Time Taken Comments Blood Pressure 126/84 07/28/2025 9:54 AM BIOINFORMATICS SOFTWARE ENGINEER Pulse 82 07/28/2025 9:54 AM BIOINFORMATICS SOFTWARE ENGINEER Temperature 37.3 C (99.1 F) 07/28/2025 9:54 AM BIOINFORMATICS SOFTWARE ENGINEER Respiratory Rate - - Oxygen Saturation 99% 09/01/2023 10:52 AM BIOINFORMATICS SOFTWARE ENGINEER Inhaled Oxygen Concentration - - Weight 108.4 kg (239 lb) 07/28/2025 9:54 AM BIOINFORMATICS SOFTWARE ENGINEER Height 193 cm (6' 4) 07/28/2025 9:54 AM BIOINFORMATICS SOFTWARE ENGINEER Body Mass Index 29.09 07/28/2025 9:54 AM BIOINFORMATICS SOFTWARE ENGINEER Plan of Treatment Health Maintenance Due Date [...] HEMOGLOBIN A1C Routine 07/28/2025 1 0:01 AM BIOINFORMATICS SOFTWARE ENGINEER 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), managed as type 1 (HCC) POCT GLUCOSE 43207 Routine 07/28/2025 10 :00 AM BIOINFORMATICS SOFTWARE ENGINEER 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), managed [...] (ABNORMAL) POCT hemoglobin A1c (07/28/2025 10:01 AM BIOINFORMATICS SOFTWARE ENGINEER) Pathologist [facility] Hemoglobin A1C, POC 6.2(A) 4.0 - 5.6 % Blood 07/28/2025 10:0 1 AM BIOINFORMATICS SOFTWARE ENGINEER Manjula Peguero [facility] POINT OF CARE TEST ORDERABLES Final Result * POCT glucose (07/28/2025 10:00 AM BIOINFORMATICS SOFTWARE ENGINEER) Pathologist [facility] Glucose Blood, POC 164 Normal Fasting 70 - 100, Random <200 mg/dL Blood 07/28/2025 10:0 0 AM BIOINFORMATICS SOFTWARE ENGINEER Manjula Peguero [facility] POINT OF CARE TEST ORDERABLES Final Result [...] CDT 01/26/2025 10:54 AM CDT Manjula Peguero [facility] LAB BLOOD ORDERABLE S Final Result [...] - 12/02/2024 11:10 AM CDT Performed at: [address] [id number] Shampoo Technician: Kleber Shirley PhD, Phone: [phone] Manjula Goode ND LAB URINE ORDERABLE S Final Result Performing Organization Address City/[facility]/ZIP Co de Phone Number [facility] - 01 * TSH (12/01/2024 9:58 AM CDT) Pathologist [facility] TSH 0.601 0.450 - 4.500 uIU/mL [facility] - 01 Blood 12/01/2024 9:58 AM CDT 12/01/2024 Narrative [facility] - 12/02/2024 8:11 AM CDT Performed at: [address] [id number] Shampoo Technician: Kleber Shirley PhD, Phone: [phone] Manjula Peguero [facility] LAB BLOOD ORDERABLE S Final Result Performing Organization Address City/[facility]/ZIP Co de Phone Number [facility] - 01 * Lipid panel (12/01/2024 [...] - 12/02/2024 8:11 AM CDT Performed at: [address] [place] [id number] Shampoo Technician: Kleber Shirley PhD, Phone: [phone] Manjula Peguero [facility] LAB BLOOD ORDERABLE S Final Result [facility] - 01 from Last 3 Months or Most Recently Relevant to Health Maintenance Insurance [facility] CHO[facility] PL[facility] Care Teams Prison Guard Relationship Specialty Start Date End Date Demetris Chaudhry DO PCP - General Internal Medicine 02/19/22 Leanne Brown MD Referring Physician Endocrinology Diabetes & Metabolism 05/06/22 Harvinder Sanders Jr., DPDakota Referring Physician Podiatry 05/07/22 Angeles Dee MD [address] [facility] [place] [address] Consulting Physician Bone Health 10/07/23 Manjula Goode PA [address] DIV IM ENDOCRINOLOGY, [address] [place] [address] Physician Instantizer Operator Physician Instantizer Operator 04/04/24
--- OUTSIDE RECORDS SUMMARY | 2025-08-28 11:26 | XMS_ITS | Encounter Summary ---
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 ENDOCRINOLOGY, [place] [address] [place] [id number] Physician Rn Surgical Physician Rn Surgical 04/04/24 documented as of this encounter
--- OUTSIDE RECORDS SUMMARY | 2025-08-28 11:26 | XMS_ITS | Clinical Summary ---
Author Organization [facility] [email or web address] Address [address] [address] Care Team Providers Care Logging Contractor Name Role Phone Unavailable Primary Care Provider Unavailabl e Source Comments [facility] [email or web address],non-owned Affiliates and Associated Physician Practices is amultiple site organization consisting of ambulatory clinics and hospital sitesin [place], [place], [place] and [place]. This disclosure is being madepursuant to the Care Everywhere program and may not contain all information available regarding this patient. Last updated 18.[facility] [email or web address] Allergies No known active allergies Medications * [...] patient's age to complete this topic Insurance [facility]
== END 2025-08-28 11:10 | disposition home or self-care (01) ==
PROVIDERS: Emergency Medicine; Emergency Provider Physician Assistant; PCP Internal Medicine
DX: K59.00 Constipation, unspecified (principal); E11.9 Type 2 diabetes mellitus without complications; E55.9 Vitamin D deficiency, unspecified; Z86.16 Personal history of COVID-19; Z98.1 Arthrodesis status; Z79.85 Long-term (current) use of injectable non-insulin antidiabetic drugs; Z79.4 Long term (current) use of insulin; Z79.84 Long term (current) use of oral hypoglycemic drugs; Z79.899 Other long term (current) drug therapy
CPT/HCPCS: 36415; 74177; 80053; 81003; 83690; 85025; 96374; 96375; 99284; A9270; J2405; Q9967